=== PATIENT | male | born 1950 | race Caucasian/White ===

== ENCOUNTER → 2018-04-20 08:40 | Outpatient (CLI) | payer OTHER, SELFPAY | PROVIDERS: Family Provider Family Medicine; PCP Family Medicine; Visit Provider Urology | DX: R97.20 Elevated prostate specific antigen [PSA] (principal) | CPT/HCPCS: 36415; 84153 ==

== ENCOUNTER → 2019-05-03 09:35 | Outpatient (CLI) | payer MEDICARE, SELFPAY ==
[2019-05-03 10:58] LABS: PSA,Total - Annual Screen 1.83 ng/mL (0.00-4.00)
== END ==
PROVIDERS: Family Provider Family Medicine; PCP Family Medicine; Referring Provider Urology; Visit Provider Urology
DX: Z12.5 Encounter for screening for malignant neoplasm of prostate (principal)
CPT/HCPCS: 36415; 84153; G0103

== ENCOUNTER → 2020-07-31 16:20 | Outpatient (CLI) | payer MEDICARE, SELFPAY ==
[2020-07-31 17:59] LABS: PSA,Total- Diagnostic 1.67 ng/mL (0.0-4.0)
== END ==
PROVIDERS: PCP Family Medicine; Referring Provider Urology; Visit Provider Urology
DX: R97.20 Elevated prostate specific antigen [PSA] (principal)
CPT/HCPCS: 36415; 84153

== ENCOUNTER → 2021-10-22 12:08 | Outpatient (CLI) | payer MEDICARE, SELFPAY ==
[2021-10-22 14:20] LABS: PSA,Total- Diagnostic 1.74 ng/mL (0.0-4.0)
== END ==
PROVIDERS: PCP Family Medicine; Referring Provider Urology; Visit Provider Urology
DX: R97.20 Elevated prostate specific antigen [PSA] (principal)
CPT/HCPCS: 36415; 84153

== ENCOUNTER → 2022-10-22 | Outpatient (CLI) | payer MEDICARE, SELFPAY ==
[2022-10-22 16:00] LABS: PSA,Total - Annual Screen 1.43 ng/mL (0.00-4.00)
== END | disposition home or self-care (01) ==
LOC: LAB 14:51
PROVIDERS: PCP Family Medicine; Visit Provider Urology
DX: Z12.5 Encounter for screening for malignant neoplasm of prostate (principal)
CPT/HCPCS: 36415; 84153; G0103

== ENCOUNTER → 2023-10-16 | Outpatient (CLI) | payer MEDICARE, SELFPAY ==
[2023-10-16 13:11] LABS: PSA,Total- Diagnostic 1.83 ng/mL (0.0-4.0)
== END | disposition home or self-care (01) ==
LOC: LAB 12:06
PROVIDERS: PCP Family Medicine; Referring Provider Urology; Visit Provider Urology
DX: N40.1 Benign prostatic hyperplasia with lower urinary tract symptoms (principal)
CPT/HCPCS: 36415; 84153

== ENCOUNTER → 2024-10-17 | Outpatient (CLI) | payer MEDICARE, SELFPAY ==
[2024-10-17 13:12] LABS: PSA,Total- Diagnostic 1.56 ng/mL (0.0-4.0)
== END | disposition home or self-care (01) ==
LOC: LAB 12:15
PROVIDERS: PCP Family Medicine; Referring Provider Urology; Visit Provider Urology
DX: N40.1 Benign prostatic hyperplasia with lower urinary tract symptoms (principal)
CPT/HCPCS: 36415; 84153

== ENCOUNTER → 2025-03-03 | Outpatient (CLI) | payer MEDICARE, SELFPAY ==
[2025-03-03 10:29] LABS: Microalbumin,Random Urine 16.4 mg/L (NO RANGE EST.); Microalbumin:Creatinine Ratio 471.3 mg/g CRE
[2025-03-03 10:40] LABS: ALB/GLOB Ratio 1.5 RATIO (0.9-2.4); AST(SGOT) 38 U/L (<=37); Alanine Aminotransfer ALT/SGPT 49 U/L (<=46); Albumin, Serum 4.2 g/dL (3.4-4.8); Alkaline Phosphatase 66 U/L (40-129); Anion Gap 13 (5-15); BUN 14 mg/dL (4-19); BUN/Creat Ratio 14.8 RATIO (10-20); Calcium,Total 9.2 mg/dL (7.6-11.0); Carbon Dioxide 24.3 mmol/L (21.0-32.0); Chloride 99 mmol/L (98-108); Cholesterol 170 mg/dL (<=200); Creatinine, Serum 0.92 mg/dL (0.70-1.20); EST Glomerular Filtration Rate 89 (>60); Globulin 2.9 g/dL (2.2-4.2); Glucose 210 mg/dL (70-99); High Density Lipoprotein 38 mg/dL; Low Density Lipoprotein Calc. 72 mg/dL; Potassium 4.2 mmol/L (3.3-5.1); Protein, Total 7.1 g/dL (5.9-8.4); Sodium Level 136 mmol/L (133-145); Total Bilirubin 0.47 mg/dL (0.00-1.30); Triglycerides 302 mg/dL; Very Low Density Lipoprotein 60 mg/dL (5-40); cholesterol:hdl ratio screen 4.52
== END | disposition home or self-care (01) ==
LOC: LAB 09:39
PROVIDERS: PCP Family Medicine; Referring Provider Family Medicine; Visit Provider Family Medicine
DX: E03.9 Hypothyroidism, unspecified (principal); E11.9 Type 2 diabetes mellitus without complications; I10 Essential (primary) hypertension
CPT/HCPCS: 36415; 80053; 80061; 82043; 82570; 84439; 84443

== ENCOUNTER → 2025-09-14 | Outpatient (CLI) | payer MEDICARE, SELFPAY ==
[2025-09-14 18:05] LABS: Hematocrit 41.7 % (40-54); Hemoglobin 13.9 g/dL (13.0-16.5); Immature Granulocytes Count 0.020 X10^3/uL (0.0-0.0); Mean Corp Hgb Conc 33.3 g/dL (32-36); Mean Corpuscular Volume 88.5 fL (80-94); Mean Platelet Vol. 10.4 fl (6.2-12.0); NRBC Flagged by Analyzer 0 % (0-5); Platelet Count 294 K/mm3 (150-450); RBC Distribution Width CV 13.7 % (11.6-14.6); RBC Distribution Width SD 44.4 fl (35.1-43.9); Red Blood Count 4.71 M/mm3 (4.6-6.2); White Blood Count 8.7 K/mm3 (4.4-11.0)
[2025-09-14 18:39] LABS: AST(SGOT) 25 U/L (<=37); Alanine Aminotransfer ALT/SGPT 35 U/L (<=46); Albumin, Serum 4.3 g/dL (3.4-4.8); Alkaline Phosphatase 60 U/L (40-129); Anion Gap 12 (5-15); BUN 10 mg/dL (4-19); BUN/Creat Ratio 11.8 RATIO (10-20); Calcium,Total 9.8 mg/dL (7.6-11.0); Carbon Dioxide 24.6 mmol/L (21.0-32.0); Chloride 100 mmol/L (98-108); Globulin 2.8 g/dL (2.2-4.2); Glucose 175 mg/dL (70-99); Potassium 4.1 mmol/L (3.3-5.1)
--- OUTSIDE RECORDS SUMMARY | 2025-09-14 18:52 | XMS RPT_ITS | CCD ---
Author Organization [facility] Care Team Providers Care Software Writer Name Role Phone GUY WILKES MD Primary Care Physician Taylor PT, Raina Unavailable Unavailable Unavailable Primary Care Provider UnavailGUY Huerta MD Attending Unavailable GUY WILKES MD Primary Care Unavailable GUY WILKES MD Attending Unavailable GUY WILKES MD Primary Care Unavailable GUY WILKES MD Attending Unavailable GUY WILKES MD Primary Care Unavailable GUY WILKES MD Attending Unavailable GUY WILKES MD Primary Care Unavailable GUY WILKES MD Attending Unavailable GUY WILKES MD Primary Care Unavailable GUY WILKES MD Attending Unavailable GUY WILKES MD Primary Care Unavailable Dr. Naz Horton MD Primary Care Provider [phone] Dr. Naz Horton MD Attending Provider Dr. Naz Horton MD Referring Provider Guy Wilkes Primary Care Unavailable Baldo Parker Referring Unavailable Baldo Parker Attending Unavailable Naz Horton Primary Care Unavailable Baldo Parker Attending Unavailable Naz Horton Attending Unavailable Naz Horton Primary Care Unavailable Naz Horton Referring Unavailable Allergies Allergy Classification Reported Allergen(s) Allergy Type Date of Onset Reaction(s) Facility (10 sources) seasonal enviromental Allergy to substance Unknown (qualifier value) [facility] [place] NEGATED: Highlighted row has been ruled out!Unclassified (1 source) Drug allergy [facility] NEGATED: Highlighted row has been ruled out! (1 source) Drug allergy [facility] NEGATED: Highlighted row has been ruled out! (1 source) Drug allergy [facility] NEGATED: Highlighted row has been ruled out! (1 source) Drug allergy [facility] NEGATED: Highlighted row has been ruled out! (1 source) Drug allergy [facility] NEGATED: Highlighted row has been ruled out! (1 source) Drug allergy [facility] NEGATED: Highlighted row has been ruled out! (1 source) Drug allergy [facility] NEGATED: Highlighted row has been ruled out! (1 source) Drug allergy [facility] NEGATED: Highlighted row has been ruled out! (1 source) Drug allergy [facility] NEGATED: Highlighted row has been ruled out! (1 source) Drug allergy [facility] Medications Current Medications Medication Drug Class(es) Dates Sig (Normalized) Sig (Original) ACCU-CHEK SEAN PLUS TEST STRP (16 sources) Start: 05-24-2019 ACCU-CHEK SEAN PLUS TEST STRP ACCU-CHEK SEAN PLUS TEST STRP, 0 Refill(s) Start Date: 05/24/19 Status: Ordered amLODIPine 5 mg oral tablet (1 source) Dihydropyridine Calcium Channel Jeri Start: 02-13-2025 take 1 tablet by mouth once daily Amlodipine 5 mg tablet Active 5 mg PO daily February 13, 2025 12:00am amLODIPine 5 mg / benazepril hydrochloride 20 mg oral capsule (17 sources) Dihydropyridine Calcium Channel Jeri, Angiotensin Converting Enzyme Inhibitor Start: 02-13-2025 Amlodipine-Benaz epril 5-20 mg capsule Active 1 NMA PO daily February 13, 2025 12:00am Start: 05-27-2024 take 1 capsule by [facility] once daily amlodipine-benazepril 5 mg-20 mg oral capsule Dose = 1 cap(s), Oral, qDay, # 90 cap(s), 3 Refill(s), Pharmacy: [facility]/pharmacy #[id number], 182.5, cm, 05/27/24 9:06:00 EDT, Height, kg, 05/27/24 9:06:00 EDT, Dosing Weight Start Date: 05/27/24 Status: Ordered Start: 02-26-2024 take 1 capsule by [facility] once daily amlodipine-benazepril 5 mg-20 mg oral capsule Dose = 1 cap(s), Oral, qDay, # 90 cap(s), 3 Refill(s), [facility]: [facility] #[id number], 182, cm, 02/26/24 9:49:00 EDT, Height, kg, 02/26/24 9:49:00 EDT, Dosing Weight Start Date: 02/26/24 Status: Ordered Start: 11-17-2023 take 1 capsule by [facility] once daily amlodipine-benazepril 5 mg-20 mg oral capsule Dose = 1 cap(s), Oral, qDay, # 90 cap(s), 0 Refill(s), [facility]: [facility] #[id number], 182, cm, 08/28/23 8:57:00 EDT, Height, kg, 08/28/23 8:57:00 EDT, Dosing Weight Start Date: 11/17/23 Status: Ordered Start: 09-03-2021 End: 08-23-2023 take 1 capsule by mouth once daily amlodipine-benazepril 5 mg-20 mg oral capsule Dose = 1 cap(s), Oral, qDay, X 90 day(s), # 90 cap(s), 3 Refill(s), [facility]: [facility] #[id number], 183.5, cm, 08/28/22 9:38:00 EDT, Height, kg, 08/28/22 9:38:00 EDT, Dosing Weight Start Date: 08/28/22 Stop Date: 08/23/23 Status: Ordered Start: 07-31-2021 End: 08-30-2021 take 1 capsule by mouth once daily amlodipine-benazepril 5 mg-20 mg oral capsule Dose = 1 cap(s), Oral, qDay, X 30 day(s), # 30 cap(s), 0 Refill(s), Pharmacy: [facility] 183, cm, 05/27/21 9:34:00 EDT, Height, kg, 05/27/21 9:34:00 EDT, Dosing Weight Start Date: 07/31/21 Stop Date: 08/30/21 Status: Ordered ascorbic acid 1000 mg extended release oral tablet (1 source) Vitamin C Start: 02-13-2025 Ascorbic Acid (Vitamin C) (C Complex) 1,000 mg tablet extended release Active 500 mg PO Q12H February 13, 2025 12:00am aspirin 81 mg delayed release oral tablet (17 sources) Platelet Aggregation Inhibitor, Nonsteroidal Anti-inflammatory Drug Start: 02-13-2025 take 1 tablet by mouth once daily Aspirin (Adult Aspirin Regimen) 81 mg tablet,delayed release (DR/EC) Active 81 mg PO daily February 13, 2025 12:00am Start: 08-12-2017 take 1 tablet by edgardo th every other day aspirin 81 mg oral delayed release tablet See Instructions, 1 tab(s) Oral QOD, 0 Refill(s) Start Date: 08/12/17 Status: Ordered Start: 08-12-2017 aspirin 81 mg oral delayed release tablet Dose : 81 mg = 1 tab(s), Oral, qDay, # 30 tab(s), 0 Refill(s) Start Date: 08/12/17 Status: Ordered atorvastatin 10 mg oral tablet (16 sources) HMG-CoA Reductase Inhibitor Start: 02-13-2025 take 1 tablet by mouth once daily Atorvastatin 10 mg tablet Active 10 mg PO daily February 13, 2025 12:00am Start: 05-27-2024 atorvastatin 1 0 mg oral tablet Dose : 10 mg = 1 tab(s), Oral, qDay, # 90 tab(s), 3 Refill(s), Pharmacy: [facility]/pharmacy #[id number], 182.5, cm, 05/27/24 9:06:00 EDT, Height, kg, 05/27/24 9:06:00 EDT, Dosing Weight Start Date: 05/27/24 Status: Ordered Start: 08-28-2023 atorvastatin 1 0 mg oral tablet Dose : 10 mg = 1 tab(s), Oral, qDay, # 90 tab(s), 3 Refill(s), Pharmacy: [facility] #[id number], 182, cm, 08/28/23 8:57:00 EDT, Height, kg, 08/28/23 8:57:00 EDT, Dosing Weight Start Date: 08/28/23 Status: Ordered Start: 05-29-2023 atorvastatin 1 0 mg oral tablet Dose : 10 mg = 1 tab(s), Oral, qDay, # 90 tab(s), 3 Refill(s), Pharmacy: [facility] #[id number], 182.9, cm, 05/29/23 9:04:00 EDT, Height, kg, 05/29/23 9:04:00 EDT, Dosing Weight Start Date: 05/29/23 Status: Ordered Start: 05-29-2022 atorvastatin 1 0 mg oral tablet Dose : 10 mg = 1 tab(s), Oral, qDay, # 90 tab(s), 3 Refill(s), Pharmacy: [facility] #[id number], 182.5, cm, 05/29/22 10:02:00 EDT, Height, kg, 05/29/22 10:02:00 EDT, Dosing Weight Start Date: 05/29/22 Status: Ordered Start: 03-12-2022 atorvastatin 1 0 mg oral tablet Dose : 10 mg = 1 tab(s), Oral, qDay, # 90 tab(s), 0 Refill(s), Pharmacy: [facility] 182.5, cm, 02/25/22 10:34:00 EDT, Height Start Date: 03/12/22 Status: Ordered Start: 11-27-2020 End: 11-22-2021 atorvastatin 10 mg oral tabl et Dose : 10 mg = 1 tab(s), Oral, qDay, X 90 day(s), # 90 tab(s), 3 Refill(s), 11/22/21 9:19:00 EST, Pharmacy: [facility] 183.5, cm, 11/26/20 10:04:00 EST, Height, kg, 11/26/20 10:04:00 EST, Dosing Weight Start Date: 11/27/20 Stop Date: 11/22/21 Status: Ordered bisoprolol fumarate 5 mg / hydroCHLOROthiazide 6.25 mg oral tablet (17 sources) Thiazide Diuretic, beta-Adrenergic Jeri Start: 02-13-2025 Bisoprolol-Hydrochlorothiazi de 5-6.25 mg tablet Active 1 {tbl} PO daily February 13, 2025 12:00am Start: 05-27-2024 take 1 tablet by edgardo th once daily bisoprolol-hydrochlorothiazide 5 - 6.25 mg oral tablet Dose = 1 tab(s), Oral, qDay, # 90 tab(s), 3 Refill(s), Pharmacy: [facility]/pharmacy #[id number], HTN (hypertension), 182.5, cm, 05/27/24 9:06:00 EDT, Height, kg, 05/27/24 9:06:00 EDT, Dosing Weight Start Date: 05/27/24 Status: Ordered Start: 08-28-2023 take 1 tablet by edgardo th once daily bisoprolol-hydrochlorothiazide 5 - 6.25 mg oral tablet Dose = 1 tab(s), Oral, qDay, # 90 tab(s), 3 Refill(s), [facility]: [facility] #[id number], HTN (hypertension), 182, cm, 08/28/23 8:57:00 EDT, Height, kg, 08/28/23 8:57:00 EDT, Dosing Weight Start Date: 08/28/23 Status: Ordered Start: 08-28-2022 take 1 tablet by edgardo once daily bisoprolol-hydrochlorothiazide 5 - 6.25 mg oral tablet Dose = 1 tab(s), Oral, qDay, # 90 tab(s), 3 Refill(s), [facility]: [facility] #[id number], HTN (hypertension), 183.5, cm, 08/28/22 9:38:00 EDT, Height, kg, 08/28/22 9:38:00 EDT, Dosing Weight Start Date: 08/28/22 Status: Ordered Start: 05-29-2022 take 1 tablet by edgardo once daily bisoprolol-hydrochlorothiazide 5 - 6.25 mg oral tablet Dose = 1 tab(s), Oral, qDay, # 90 tab(s), 3 Refill(s), Pharmacy: [facility] #[id number], HTN (hypertension), 182.5, cm, 05/29/22 10:02:00 EDT, Height, kg, 05/29/22 10:02:00 EDT, Dosing Weight Start Date: 05/29/22 Status: Ordered Start: 08-13-2021 take 1 tablet by edgardo th once daily bisoprolol-hydrochlorothiazide 5 - 6.25 mg oral tablet Dose = 1 tab(s), Oral, qDay, # 90 tab(s), 3 Refill(s), [facility]acy: [facility] [facility], HTN (hypertension), 183, cm, 05/27/21 9:34:00 EDT, Height, kg, 05/27/21 9:34:00 EDT, Dosing Weight Start Date: 08/13/21 Status: Ordered cholecalciferol 0.025 mg oral capsule (1 source) Vitamin D Start: 02-13-2025 take 1 capsule by mouth once daily Cholecalciferol (Vitamin D3) 25 mcg (1,000 unit) capsule Active 25 ug PO daily February 13, 2025 12:00am Dulaglutide (17 sources) GLP-1 Receptor Agonist Start: 02-13-2025 Dulaglutide (Trulicity) 4.5 mg/0.5 mL pen injector Active 4.5 mg SC EVERY WEEK February 13, 2025 12:00am Start: 05-27-2024 inject 1 dose by sub cutaneous injection every week Trulicity Pen 4.5 mg/0.5 mL subcutaneous solution Dose : 0.5 mL =, Subcutaneous, qWeek, rotate injection sites, # 2 mL, 11 Refill(s), Pharmacy: [facility]/pharmacy #[id number], 182.5, cm, 05/27/24 9:06:00 EDT, Height, kg, 05/27/24 9:06:00 EDT, Dosing Weight Start Date: 05/27/24 Status: Ordered Start: 02-26-2024 inject 1 dose by sub cutaneous injection every week Trulicity Pen 4.5 mg/0.5 mL subcutaneous solution Dose : 0.5 mL =, Subcutaneous, qWeek, rotate injection sites, # 2 mL, 11 Refill(s), [facility]: [facility] #[id number], 182, cm, 02/26/24 9:49:00 EDT, Height, kg, 02/26/24 9:49:00 EDT, Dosing Weight Start Date: 02/26/24 Status: Ordered Start: 08-28-2023 End: 04-24-2024 inject 1 dose by subcutaneous injection every week Trulicity Pen 3 mg/0.5 mL subcutaneous solution Dose : 3 mg =, Subcutaneous, qWeek, # 4 EA, 5 Refill(s), Pharmacy: [facility] #[id number], 182, cm, 08/28/23 8:57:00 EDT, Height, kg, 08/28/23 8:57:00 EDT, Dosing Weight Start Date: 08/28/23 Stop Date: 02/24/24 Status: Ordered Start: 02-27-2023 End: 08-26-2023 inject 1 dose by subcutaneous injection every week Trulicity Pen 3 mg/0.5 mL subcutaneous solution Dose : 3 mg =, Subcutaneous, qWeek, # 4 EA, 5 Refill(s), Pharmacy: [facility] #[id number], 182.9, cm, 02/27/23 9:03:00 EDT, Height Start Date: 02/27/23 Stop Date: 08/26/23 Status: Ordered Start: 05-29-2022 inject 0.5 mg by sub cutaneous injection once daily Trulicity Pen 1.5 mg/0.5 mL subcutaneous solution Dose : 1.5 mg =, Subcutaneous, qWeek, inject 1 AND 1/2 milligram subcutaneously every week dispense 90 day supply, # 12 EA, 3 Refill(s), Pharmacy: [facility] #[id number], 182.5, cm, 05/29/22 10:02:00 EDT, Height, kg, 05/29/22 10:02:00 EDT, Dosing Weight Start Date: 05/29/22 Status: Ordered Start: 04-10-2022 inject 0.5 mg by sub cutaneous injection once daily Trulicity Pen 1.5 mg/0.5 mL subcutaneous solution Dose : 1.5 mg =, Subcutaneous, qWeek, inject 1 AND 1/2 milligram subcutaneously every week dispense 90 day supply, # 12 EA, 0 Refill(s), Pharmacy: [facility] 182.5, cm, 02/25/22 10:34:00 EDT, Height Start Date: 04/10/22 Status: Ordered Start: 07-31-2021 End: 04-01-2022 inject 1 dose by subcutaneous injection every week Trulicity Pen 1.5 mg/0.5 mL subcutaneous solution Dose : 1.5 mg =, Subcutaneous, qWeek, X 90 day(s), # 6 mL, 0 Refill(s), 04/01/22 14:09:00 EDT, Pharmacy: [facility] 183.5, cm, 11/26/21 10:38:00 EST, Height, kg, 11/26/21 10:38:00 EST, Dosing Weight Start Date: 01/01/22 Stop Date: 04/01/22 Status: Ordered Elderberry preparation (3 sources) Start: 11-27-2023 take 50 mg by mouth once daily elderberry 50 mg, Oral, qDay, 0 Refill(s) Start Date: 11/27/23 Status: Ordered 0.85 ml exenatide 2.35 mg/ml auto-injector (1 source) GLP-1 Receptor Agonist Start: 11-27-2023 inject 1 dose by subcutaneous injection every week Byluz BCise 2 mg/0.85 mL subcutaneous suspension, extended release Dose : 2 mg =, Subcutaneous, qWeek, # 3.4 mL, 5 Refill(s), [facility]: [facility] #[id number], Diabetes Diabetes mellitus type 2, 182, cm, 11/27/23 9:31:00 EST, Height, kg, 11/27/23 9:31:00 EST, Dosing Weight Start Date: 11/27/23 Status: Ordered fexofenadine hydrochloride 180 mg oral tablet (17 sources) Histamine-1 Receptor Antagonist Start: 02-13-2025 take 1 tablet by mouth once daily Fexofenadine (Sheryl Hives) 180 mg tablet Active 180 mg PO daily February 13, 2025 12:00am Start: 11-26-2020 Sheryl 24 Azael r Allergy oral tablet Dose : 180 mg = 1 tab(s), Oral, Daily, # 90 tab(s), 0 Refill(s) Start Date: 11/26/20 Status: Ordered finasteride 5 mg oral tablet (17 sources) 5-alpha Reductase Inhibitor Start: 02-13-2025 take 1 tablet by mouth once daily Finasteride 5 mg tablet Active 5 mg PO daily February 13, 2025 12:00am Start: 05-27-2024 finasteride 5 mg oral tablet Dose : 5 mg = 1 tab(s), Oral, qDay, # 90 tab(s), 3 Refill(s), Pharmacy: [facility]/pharmacy #[id number], 182.5, cm, 05/27/24 9:06:00 EDT, Height, kg, 05/27/24 9:06:00 EDT, Dosing Weight Start Date: 05/27/24 Status: Ordered Start: 08-28-2023 finasteride 5 mg oral tablet Dose : 5 mg = 1 tab(s), Oral, qDay, # 90 tab(s), 3 Refill(s), Pharmacy: [facility] #[id number], 182, cm, 08/28/23 8:57:00 EDT, Height, kg, 08/28/23 8:57:00 EDT, Dosing Weight Start Date: 08/28/23 Status: Ordered Start: 08-28-2022 finasteride 5 mg oral tablet Dose : 5 mg = 1 tab(s), Oral, qDay, # 90 tab(s), 3 Refill(s), [facility]: [facility] #[id number], 183.5, cm, 08/28/22 9:38:00 EDT, Height, kg, 08/28/22 9:38:00 EDT, Dosing Weight Start Date: 08/28/22 Status: Ordered Start: 02-25-2022 finasteride 5 mg oral tablet Dose : 5 mg = 1 tab(s), Oral, qDay, # 90 tab(s), 3 Refill(s), [facility]: [facility] 182.5, cm, 02/25/22 10:34:00 EDT, Height, kg, 02/25/22 10:34:00 EDT, Dosing Weight Start Date: 02/25/22 Status: Ordered Start: 11-27-2021 finasteride 5 mg oral tablet Dose : 5 mg = 1 tab(s), Oral, qDay, # 90 tab(s), 0 Refill(s), Pharmacy: [facility] 183.5, cm, 11/26/21 10:38:00 EST, Height, kg, 11/26/21 10:38:00 EST, Dosing Weight Start Date: 11/27/21 Status: Ordered Start: 11-27-2020 End: 11-22-2021 finasteride 5 mg oral tablet Dose : 5 mg = 1 tab(s), Oral, qDay, X 90 day(s), # 90 tab(s), 3 Refill(s), 11/22/21 9:19:00 EST, Pharmacy: [facility] 183.5, cm, 11/26/20 10:04:00 EST, Height, kg, 11/26/20 10:04:00 EST, Dosing Weight Start Date: 11/27/20 Stop Date: 11/22/21 Status: Ordered fluticasone propionate 0.05 mg/actuat metered dose nasal spray (1 source) Corticosteroid Start: 02-13-2025 take 50 ug nasal route once daily Fluticasone Propionate (Flonase Allergy Relief) 50 mcg/actuation spray,suspension Active 1 NMA INTRANASAL daily February 13, 2025 12:00am administer into each nostril levothyroxine sodium 0.175 mg oral tablet (20 sources) l-Thyroxine Start: 02-13-2025 take 1 tablet by mouth once daily Levothyroxine 175 mcg tablet Active 175 ug PO daily February 13, 2025 12:00am Start: 05-27-2024 levothyroxine 175 mcg (0.175 mg) oral tablet Dose : 175 mcg = 1 tab(s), Oral, qDay, # 90 tab(s), 3 Refill(s), Pharmacy: [facility]/pharmacy #[id number], 182.5, cm, 05/27/24 9:06:00 EDT, Height, kg, 05/27/24 9:06:00 EDT, Dosing Weight Start Date: 05/27/24 Status: Ordered Start: 08-28-2023 levothyroxine 175 mcg (0.175 mg) oral tablet Dose : 175 mcg = 1 tab(s), Oral, qDay, # 90 tab(s), 3 Refill(s), [facility][id number], 182, cm, 08/28/23 8:57:00 EDT, Height, kg, 08/28/23 8:57:00 EDT, Dosing Weight Start Date: 08/28/23 Status: Ordered Start: 03-11-2023 levothyroxine 175 mcg (0.175 mg) oral tablet Dose : 175 mcg = 1 tab(s), Oral, qDay, # 90 tab(s), 3 Refill(s), Pharmacy: [facility] #[id number], 182.9, cm, 02/28/23 9:47:00 EDT, Height, kg, 02/28/23 9:47:00 EDT, Dosing Weight Start Date: 03/11/23 Status: Ordered Start: 05-29-2022 End: 05-24-2023 levothyroxine 200 mcg (0.2 m g) oral tablet Dose : 200 mcg = 1 tab(s), Oral, qDay, # 90 tab(s), 3 Refill(s), Pharmacy: [facility] #[id number], Hypothyroidism, 182.5, cm, 05/29/22 10:02:00 EDT, Height, kg, 05/29/22 10:02:00 EDT, Dosing Weight Start Date: 05/29/22 Stop Date: 05/24/23 Status: Ordered Start: 11-26-2021 levothyroxine 50 mcg (0.05 mg) oral tablet Dose : 50 mcg = 1 tab(s), Oral, qDay, # 90 tab(s), 3 Refill(s), [facility] 183.5, cm, 11/26/21 10:38:00 EST, Height, kg, 11/26/21 10:38:00 EST, Dosing Weight Start Date: 11/26/21 Status: Ordered Start: 08-27-2021 levothyroxine 25 mcg (0.025 mg) oral tablet Dose : 25 mcg = 1 tab(s), Oral, qDayAC, # 90 tab(s), 3 Refill(s), [facility] [address] Diabetes mellitus type 2 HTN (hypertension), 184.6, cm, 08/27/21 10:48:00 EDT, Height, kg, 08/27/21 10:48:00 EDT, Dosing Weight Start Date: 08/27/21 Status: Ordered Start: 05-27-2021 End: 05-22-2022 levothyroxine 200 mcg (0.2 m g) oral tablet Dose : 200 mcg = 1 tab(s), Oral, qDay, # 90 tab(s), 3 Refill(s), [facility]: [facility] [facility], [facility], 183, cm, 05/27/21 9:34:00 EDT, Height, kg, 05/27/21 9:34:00 EDT, Dosing Weight Start Date: 05/27/21 Stop Date: 05/22/22 Status: Ordered meclizine hydrochloride 25 mg oral tablet (1 source) Antiemetic Start: 02-13-2025 take 1 tablet by mouth three times daily as needed Meclizine 25 mg tablet Active 25 mg PO THREE TIMES A DAY as needed February 13, 2025 12:00am metFORMIN hydrochloride 500 mg oral tablet (16 sources) Biguanide Start: 02-13-2025 take 4 tablets by mouth once daily Metformin 500 mg tablet Active 2000 mg PO daily February 13, 2025 12:00am Start: 08-28-2023 End: 05-22-2025 MetFORMIN (Eqv-Glucophage XR ) 500 mg oral tablet, EXTENDED RELEASE Dose : 2,000 mg = 4 tab(s), Oral, qDay, 360 EA, take 4 tablets by mouth once daily, # 360 tab(s), 3 Refill(s), Pharmacy: [facility]/pharmacy #[id number], 182.5, cm, 05/27/24 9:06:00 EDT, Height, kg, 05/27/24 9:06:00 EDT, Dosing Weight Start Date: 05/27/24 Stop Date: 05/22/25 Status: Ordered Start: 08-28-2022 End: 08-23-2023 MetFORMIN (Eqv-Glucophage XR ) 500 mg oral tablet, EXTENDED RELEASE Dose : 2,000 mg = 4 tab(s), Oral, qDay, 360 EA, take 4 tablets by mouth once daily, # 360 tab(s), 3 Refill(s), [facility]: [facility] #[id number], 183.5, cm, 08/28/22 9:38:00 EDT, Height Start Date: 08/28/22 Stop Date: 08/23/23 Status: Ordered Start: 08-13-2021 End: 08-08-2022 MetFORMIN (Eqv-Glucophage XR ) 500 mg oral tablet, EXTENDED RELEASE Dose : 2,000 mg = 4 tab(s), Oral, qDay, X 90 day(s), # 360 tab(s), 3 Refill(s), 08/08/22 11:38:00 EDT, Pharmacy: [facility] 183, cm, 05/27/21 9:34:00 EDT, Height, kg, 05/27/21 9:34:00 EDT, Dosing Weight Start Date: 08/13/21 Stop Date: 08/08/22 Status: Ordered montelukast 10 mg oral tablet (6 sources) Leukotriene Receptor Antagonist Start: 05-27-2021 montelukast 10 mg oral tablet Dose : 10 mg = 1 tab(s), Oral, qDay, 0 Refill(s) Start Date: 05/27/21 Status: Ordered Multiple Vitamins oral tablet (16 sources) Start: 08-12-2017 take 1 tablet by mouth once daily Multiple Vitamins oral tablet Dose = 1 tab(s), Oral, Daily, # 30 tab(s), 0 Refill(s) Start Date: 08/12/17 Status: Ordered Multivitamin tablet (1 source) Start: 02-13-2025 Multivitamin tablet Active 1 {tbl} PO daily February 13, 2025 12:00am tamsulosin hydrochloride 0.4 mg oral capsule (17 sources) alpha-Adrenergic Jeri Start: 02-13-2025 take 1 capsule by mouth once daily Tamsulosin 0.4 mg capsule Active 0.4 mg PO daily February 13, 2025 12:00am Start: 05-27-2024 tamsulosin 0.4 mg oral capsule Dose : 0.4 mg = 1 cap(s), Oral, qDay, # 90 cap(s), 3 Refill(s), Pharmacy: [facility]/pharmacy #[id number], 182.5, cm, 05/27/24 9:06:00 EDT, Height, kg, 05/27/24 9:06:00 EDT, Dosing Weight Start Date: 05/27/24 Status: Ordered Start: 08-28-2023 tamsulosin 0.4 mg oral capsule Dose : 0.4 mg = 1 cap(s), Oral, qDay, # 90 cap(s), 3 Refill(s), [facility]: [facility] #[id number], 182, cm, 08/28/23 8:57:00 EDT, Height, kg, 08/28/23 8:57:00 EDT, Dosing Weight Start Date: 08/28/23 Status: Ordered Start: 08-28-2022 tamsulosin 0.4 mg oral capsule Dose : 0.4 mg = 1 cap(s), Oral, qDay, # 90 cap(s), 3 Refill(s), [facility]: [facility] #[id number], 183.5, cm, 08/28/22 9:38:00 EDT, Height, kg, 08/28/22 9:38:00 EDT, Dosing Weight Start Date: 08/28/22 Status: Ordered Start: 11-26-2021 tamsulosin 0.4 mg oral capsule Dose : 0.4 mg = 1 cap(s), Oral, qDay, # 90 cap(s), 3 Refill(s), Pharmacy: [facility] 183.5, cm, 11/26/21 10:38:00 EST, Height, kg, 11/26/21 10:38:00 EST, Dosing Weight Start Date: 11/26/21 Status: Ordered Start: 08-13-2021 tamsulosin 0.4 mg oral capsule Dose : 0.4 mg = 1 cap(s), Oral, qDay, # 90 cap(s), 3 Refill(s), Pharmacy: [facility] 183, cm, 05/27/21 9:34:00 EDT, Height, kg, 05/27/21 9:34:00 EDT, Dosing Weight Start Date: 08/13/21 Status: Ordered Vitamin D3 25 mcg (1000 intl units) oral capsule (3 sources) Start: 11-27-2023 Vitamin D3 25 mcg (1000 intl units) oral capsule Dose : 25 mcg = 1 cap(s), Oral, Daily, 0 Refill(s) Start Date: 11/27/23 Status: Ordered Problems Problem Classification Problem Date Documented Date Episodic/Chronic Cardiac dysrhythmias (1 source) Bradycardia; Translations: [Bradycardia, unspecified] 02-13-2025 Episodic Diabetes mellitus without complication (20 sources) Type 2 diabetes mellitus; Translations: [Type 2 diabetes mellitus without complications] Onset: 11-18-2023 05-24-2019 Chronic Disorders of lipid metabolism (20 sources) Hyperlipidemia; Translations: [Hyperlipidemia, unspecified] Onset: 11-18-2023 05-24-2019 Chronic Esophageal disorders (1 source) Gastroesophageal reflux disease; Translations: [Gastro-esophageal reflux disease without esophagitis] 02-13-2025 Chronic Essential hypertension (20 sources) Hypertensive disorder; Translations: [Essential (primary) hypertension] Onset: 11-18-2023 08-13-2017 Chronic Fluid and electrolyte disorders (1 source) Hyperkalemia; Translations: [Hyperkalemia] Episodic Hyperplasia of prostate (20 sources) Benign prostatic hyperplasia; Translations: [Benign prostatic hyperplasia without lower urinary tract symptoms] Onset: 11-18-2023 08-13-2017 Chronic Joint disorders and dislocations; trauma-related (16 sources) Internal derangement of left knee 05-24-2019 Chronic Mycoses (1 source) Candidiasis of skin 05-27-2024 Episodic Osteoarthritis (1 source) Arthritis; Translations: [Unspecified osteoarthritis, unspecified site] 02-13-2025 Chronic Other bone disease and musculoskeletal deformities (16 sources) Cervical somatic dysfunction 05-24-2019 Episodic Other bone disease and musculoskeletal deformities (16 sources) Somatic dysfunction of rib 05-24-2019 Episodic Other bone disease and musculoskeletal deformities (16 sources) Somatic dysfunction of thoracic region 05-24-2019 Episodic Other endocrine disorders (16 sources) Hypogonadotropic hypogonadism 05-24-2019 Chronic Other endocrine disorders (1 source) Hypogonadism 02-13-2025 Chronic Other male genital disorders (10 sources) Hydrocele 04-03-2023 Episodic Other nervous system disorders (1 source) Neuropathy; Translations: [Polyneuropathy, unspecified] 02-13-2025 Chronic Other non-traumatic joint disorders (16 sources) Pain in right knee 05-24-2019 Episodic Other screening for suspected conditions (not mental disorders or infectious disease) (1 source) Elevated prostate specific antigen [PSA]; Translations: [Elevated prostate specific antigen [PSA]] Onset: 08-23-2025 Episodic Other upper respiratory infections (1 source) Chronic sinusitis; Translations: [Chronic sinusitis, unspecified] 02-13-2025 Chronic Residual codes; unclassified (1 source) Obstructive sleep apnea syndrome; Translations: [Obstructive sleep apnea (adult) (pediatric)] 02-13-2025 Chronic Residual codes; unclassified (2 sources) Increased body mass index; Translations: [Other symptoms and signs concerning food and fluid intake] 05-27-2024 Episodic Thyroid disorders (20 sources) Hypothyroidism; Translations: [Hypothyroidism, unspecified] Onset: 11-18-2023 05-24-2019 Chronic Unclassified (17 sources) Patient encounter status 08-02-2020 Unclassified (1 source) Non-smoker 05-27-2024 Results Test Name Value Interpretation Reference Range Facility Microalb:Creat Ratio,Random URon 04-21-2025 MALB:CREAT 47.1 mg/g CRE Normal [facility] Comment on above: Result Comment: AMENDED REPORT 04/21/25821 MALB:CREAT previously reported as: 471.3 mg/g CRE Performed By: #### L 502.0250, L501.9520, L500.4100, L506.0400, L500.4050 #### [facility] [address] [place], [place] [address]s[place], [address] Anion gap in Serum or Plasma Ordered By: Naz Horton on 03-03-2025 Anion gap [Moles/Vol] 13 mmol/L 03-16 [facility] BUN/creatinine ratioOrdered By: Naz Horton on 03-03-2025 Urea nitrogen/Creatinine [Mass ratio] 14.8 mg/mg 08-21 [facility] Bilirubin, totalOrdered By: Naz Horton on 03-03-2025 Bilirubin [Mass/Vol] 0.47 mg/dL 0.00-1.30 [facility] Calculated very low density lipoprotein (VLDL) cholesterol measurementOrdered By: Naz Horton on 03-03-2025 Calculated very low density lipoprotein (VLDL) cholesterol measurement 60 mg/dL High [facility] Carbon dioxide, total [Moles /volume] in Central venous bloodOrdered By: Naz Horton on 03-03-2025 CO2 [Moles/Vol] 24.3 mmol/L 21.0-32.0 [facility] Chloride assayOrdered By: Scott Horton on 03-03-2025 Chloride [Moles/Vol] 99 mmol/L 98-108 [facility] Comprehensive Metabolic Prof ilon 03-03-2025 Albumin [Mass/Vol] 4.2 g/dL Normal 3.4-4.8 [facility] Comment on above: Performed By: #### L 502.0250, L501.9520, L500.4100, L506.0400, L500.4050 #### [facility] [address] [place], [address] Albumin/Globulin [Mass ratio] 1.5 {ratio} Normal 0.9-2.4 [facility] Comment on above: Performed By: #### L 502.0250, L501.9520, L500.4100, L506.0400, L500.4050 #### [facility] [address] [place], [address] ALK PHOS 66 U/L Normal 40-129 [facility] Comment on above: Performed By: #### L 502.0250, L501.9520, L500.4100, L506.0400, L500.4050 #### [facility] [address] [place], [address] ALT [Catalytic activity/Vol] 49 U/L High <=46 [facility] Comment on above: Performed By: #### L 502.0250, L501.9520, L500.4100, L506.0400, L500.4050 #### [facility] [address] [place], [address] AST [Catalytic activity/Vol] 38 U/L Normal <=37 [facility] Comment on above: Performed By: #### L 502.0250, L501.9520, L500.4100, L506.0400, L500.4050 #### [facility] [address] [place], [address] Bilirubin [Mass/Vol] 0.47 mg/dL Normal 0.00-1.30 [facility] Comment on above: Performed By: #### L 502.0250, L501.9520, L500.4100, L506.0400, L500.4050 #### [facility] [address] [place], [address] BUN/CRE 14.8 RATIO Normal 10-20 [facility] Comment on above: Performed By: #### L 502.0250, L501.9520, L500.4100, L506.0400, L500.4050 #### [facility] [address] [place], [address] Calcium [Mass/Vol] 9.2 mg/dL Normal 7.6-11.0 [facility] Comment on above: Performed By: #### L 502.0250, L501.9520, L500.4100, L506.0400, L500.4050 #### [facility] [address] [place], [address] Chloride [Moles/Vol] 99 mmol/L Normal 98-108 [facility] Comment on above: Performed By: #### L 502.0250, L501.9520, L500.4100, L506.0400, L500.4050 #### [facility] [address] [place], [address] CO2 [Moles/Vol] 24.3 mmol/L Normal 21.0-32.0 [facility] Comment on above: Performed By: #### L 502.0250, L501.9520, L500.4100, L506.0400, L500.4050 #### [facility] [address] [place], [address] Creatinine [Mass/Vol] 0.92 mg/dL Normal 0.70-1.20 [facility] Comment on above: Performed By: #### L 502.0250, L501.9520, L500.4100, L506.0400, L500.4050 #### [facility] [address] [place], [address] GAP 13 Normal 5-15 [facility] Comment on above: Performed By: #### L 502.0250, L501.9520, L500.4100, L506.0400, L500.4050 #### [facility] [address] [place], [address] GFR/1.73 sq M.predicted among non-blacks MDRD (S/P/Bld) [Vol rate/Area] 89 mL/min/{1.73_m2} Normal >60 [facility] Comment on above: Result Comment: mL/m in/1.73m2 CKD-EPI Creatinine Equation (2020) Performed By: #### L 502.0250, L501.9520, L500.4100, L506.0400, L500.4050 #### [facility] [address] [place], [address] Globulin (S) [Mass/Vol] 2.9 g/dL Normal 2.2-4.2 [facility] Comment on above: Performed By: #### L 502.0250, L501.9520, L500.4100, L506.0400, L500.4050 #### [facility] [address] [place], [address] Glucose [Mass/Vol] 210 mg/dL High 70-99 [facility] Comment on above: Performed By: #### L 502.0250, L501.9520, L500.4100, L506.0400, L500.4050 #### [facility] [address] [place], [address] Potassium [Moles/Vol] 4.2 mmol/L Normal 3.3-5.1 [facility] Comment on above: Performed By: #### L 502.0250, L501.9520, L500.4100, L506.0400, L500.4050 #### [facility] [address] [place], [address] Sodium [Moles/Vol] 136 mmol/L Normal 133-145 [facility] Comment on above: Performed By: #### L 502.0250, L501.9520, L500.4100, L506.0400, L500.4050 #### [facility] [address] [place], [address] T PROT 7.1 g/dL Normal 5.9-8.4 [facility] Comment on above: Performed By: #### L 502.0250, L501.9520, L500.4100, L506.0400, L500.4050 #### [facility] [address] [place], [address] Urea nitrogen [Mass/Vol] 14 mg/dL Normal 4-19 [facility] Comment on above: Performed By: #### L 502.0250, L501.9520, L500.4100, L506.0400, L500.4050 #### [facility] [address] [place], [address] Glomerular filtration rate ( GFR) estimation/1.73 sq m using serum, plasma, or whole bOrdered By: Naz Horton on 03-03-2025 GFR/1.73 sq M.predicted among non-blacks MDRD (S/P/Bld) [Vol rate/Area] 89 mL/min/{1.73_m2} >60 [facility] Comment on above: mL/min/1.73m2 CKD-EP I Creatinine Equation (2020) LDL calc ser/plasOrdered By: Naz Horton on 03-03-2025 Cholesterol in LDL [Mass/Vol] 72 mg/dL [facility] Comment on above: Yislagyfbo=194-758 m g/dL & Higher Nyye=127 mg/dL or greater Laboratory - Chemistry and C hemistry - challengeOrdered By: Naz Horton on 03-03-2025 AST [Catalytic activity/Vol] 38 U/L <38 [facility] Lipid Profileon 03-03-2025 CHOL:HDL 4.52 Normal [facility] Comment on above: Performed By: #### L 502.0250, L501.9520, L500.4100, L506.0400, L500.4050 #### [facility] [address] [place], [address] Cholesterol [Mass/Vol] 170 mg/dL Normal <=200 [facility] Comment on above: Result Comment: Chol esterol level, Desirable <200 mg/dL Borderline high cholesterol 200-239 mg/dL High cholesterol >=240 mg/dL Recommendations of the NCEP Adult Treatment Panel for the following risk-cutoff thresholds for the [place] population. Performed By: #### L 502.0250, L501.9520, L500.4100, L506.0400, L500.4050 #### [facility] [address] [place], [address] Cholesterol in HDL [Mass/Vol] 38 mg/dL Low [facility] Comment on above: Result Comment: Chelle onal Cholesterol Education Program (NCEP) guidelines: <40 mg/dL: Low HDL-cholesterol (major risk factor for CHD) >= 60 mg/dL: High HDL-cholesterol (negative risk factor for CHD) HDL-cholesterol is affected by a number of factors, e.g. smoking, exercise, hormones, sex and age. Performed By: #### L 502.0250, L501.9520, L500.4100, L506.0400, L500.4050 #### [facility] [address] [place], [address] Cholesterol in LDL [Mass/Vol] 72 mg/dL Normal [facility] Comment on above: Result Comment: Bord bfopkr=891-968 mg/dL Higher Uoxh=665 mg/dL or greater Performed By: #### L 502.0250, L501.9520, L500.4100, L506.0400, L500.4050 #### [facility] [address] [place], [address] Cholesterol in VLDL [Mass/Vol] 60 mg/dL High 5-40 [facility] Comment on above: Performed By: #### L 502.0250, L501.9520, L500.4100, L506.0400, L500.4050 #### [facility] [address] [place], [address] Triglyceride [Mass/Vol] 302 mg/dL High [facility] Comment on above: Result Comment: The drugs N-Acetylcysteine and Metamizole may falsely depress this assay. Normal range: <150 mg/dL Borderline High: 150-199 mg/dL High: 200-499 mg/dL Very High: >500 mg/dL Performed By: #### L 502.0250, L501.9520, L500.4100, L506.0400, L500.4050 #### [facility] [address] [place], [address] Potassium measurement (mass/ volume)Ordered By: Naz Horton on 03-03-2025 Potassium (Unsp spec) [Mass/Vol] 4.2 mmol/L 3.3-5.1 [facility] Random urine creatinine rebecca urement (mass/volume)Ordered By: Naz Horton on 03-03-2025 Creatinine Unsp time (U) [Mass/Vol] 34.80 mg/dL Low 39.00-259. 00 [facility] Screening total cholesterol/ high density lipoprotein (HDL) cholesterol ratioOrdered By: Naz Horton on 03-03-2025 Cholesterol.total/C holesterol in HDL [Mass ratio] 4.52 {ratio} [facility] Serum creatinine measurement (mass/volume)Ordered By: Naz Horton on 03-03-2025 Creatinine [Mass/Vol] 0.92 mg/dL 0.70-1.20 [facility] Serum globulin measurementOr dered By: Naz Horton on 03-03-2025 Globulin (S) [Mass/Vol] 2.9 g/dL 2.2-4.2 [facility] Serum glucose measurement (m ass/volume)Ordered By: Naz Horton on 03-03-2025 Glucose [Mass/Vol] 210 mg/dL High 70-99 [facility] Serum or plasma alanine leroy otransferase (ALT) measurementOrdered By: Naz Horton on 03-03-2025 ALT [Catalytic activity/Vol] 49 U/L High <47 [facility] Serum or plasma albumin rebecca urement (mass/volume)Ordered By: Naz Horton on 03-03-2025 Albumin [Mass/Vol] 4.2 g/dL 3.4-4.8 [facility] Serum or plasma albumin/glob ulin mass ratioOrdered By: Naz Horton on 03-03-2025 Albumin/Globulin [Mass ratio] 1.5 {ratio} 0.9-2.4 [facility] Serum or plasma alkaline gil sphatase measurementOrdered By: Naz Horton on 03-03-2025 ALP [Catalytic activity/Vol] 66 U/L 40-129 [facility] Serum or plasma calcium rebecca urement (mass/volume)Ordered By: Naz Horton on 03-03-2025 Calcium [Mass/Vol] 9.2 mg/dL 7.6-11.0 [facility] Serum or plasma cholesterol in HDL measurement (mass/volume)Ordered By: Naz Horton on 03-03-2025 Cholesterol in HDL [Mass/Vol] 38 mg/dL Low >40 [facility] Comment on above: National Cholesterol Education Program (NCEP) guidelines:<40 mg/dL: Low HDL-cholesterol (major risk factor for CHD)>= 60 mg/dL: High HDL-cholesterol (negative risk factor for CHD)HDL-cholesterol is affected by a number of factors, e.g. smoking, exercise, hormones, sex and age. Serum or plasma cholesterol measurement (mass/volume)Ordered By: Naz Horton on 03-03-2025 Cholesterol [Mass/Vol] 170 mg/dL <201 [facility] Comment on above: Cholesterol level, D esirable <200 mg/dLBorderline high cholesterol 200-239 mg/dLHigh cholesterol >=240 mg/dLRecommendations of the NCEP Adult Treatment Panel for the following risk-cutoff thresholds for the [place] population. Serum or plasma urea nitroge n measurement (mass/volume)Ordered By: Naz Horton on 03-03-2025 Urea nitrogen [Mass/Vol] 14 mg/dL 4-19 [facility] Sodium levelOrdered By: Raissa Horton on 03-03-2025 Sodium [Moles/Vol] 136 mmol/L 133-145 [facility] T4 Free Directon 03-03-2025 T4 FREE DIRECT 1.30 ng/dL Normal 0.76-1.46 [facility] Comment on above: Performed By: #### L 502.0250, L501.9520, L500.4100, L506.0400, L500.4050 #### [facility] [address] [place], [address] T4 freeOrdered By: Naz jeffers on 03-03-2025 Free T4 [Mass/Vol] 1.30 ng/dL 0.76-1.46 [facility] TSH DL <= 0.005 mIU/L QnOrde red By: Naz Horton on 03-03-2025 TSH Qn 2.800 uIU/mL 0.300-4.20 0 [facility] Thyroid Stim Hormone (TSH)on 03-03-2025 TSH 2.800 uIU/mL Normal 0.300-4.20 0 [facility] Comment on above: Performed By: #### L 502.0250, L501.9520, L500.4100, L506.0400, L500.4050 #### [facility] [address] [place], [address] Total proteinOrdered By: Matias Horton on 03-03-2025 Protein [Mass/Vol] 7.1 g/dL 5.9-8.4 [facility] Triglycerides measurementOrd ered By: Naz Horton on 03-03-2025 Triglyceride [Mass/Vol] 302 mg/dL High <199 [facility] Comment on above: The drugs N-Acetylcy steine and Metamizole may falsely depress this assay. Normal range: <150 mg/dLBorderline High: 150-199 mg/dLHigh: 200-499 mg/dLVery High: >500 mg/dL Urine albumin measurement [facility] detection limit of 20 mg/L or less (mass/volume)Ordered By: Naz Horton on 03-03-2025 Albumin DL <= 20 mg/L (U) [Mass/Vol] 16.4 mg/L NO RANGE EST. [facility] PSA,Total- Diagnosticon 12- PSA, DIAGNOSTIC 1.56 ng/mL Normal 0.0-4.0 [facility] Comment on above: Result Comment: This test was performed using the TPSA assay method for the [employer] chemistry system. Values obtained with different assay methods cannot be used interchangably. When changing PSA assays in the course of monitoring a patient, additional sequential testing should be carried out to confirm baseline values. Performed By: #### L 501.9940 #### [facility] [address] [place], [address] .GFRon 08-17-2024 GFR 94 ml/min/1.73sqm Normal [facility] Comment on above: Result Comment: GFR Population mean for , Non- Americans Ages 20-29 = 116 mL/min/1.73 sq.m. Ages 30-39 = 107 mL/min/1.73 sq.m. Ages 40-49 = 99 mL/min/1.73 sq.m. Ages 50-59 = 93 mL/min/1.73 sq.m. Ages 60-69 = 85 mL/min/1.73 sq.m. Ages 70+ = 75 mL/min/1.73 sq.m. Chronic Kidney Disease: Less than 60 mL/min/1.73 square meters End Stage Renal Disease: Less than 15 mL/min/1.73 square meters Performed By: #### F T4, LIPID, A1C, TSH, FT3, GFR, CMP #### [facility] [address] [place], [place] [address] GFR Non- 77 ml/min/1.73sqm Normal [facility] Comment on above: Result Comment: GFR Population mean for , Non- Americans Ages 20-29 = 116 mL/min/1.73 sq.m. Ages 30-39 = 107 mL/min/1.73 sq.m. Ages 40-49 = 99 mL/min/1.73 sq.m. Ages 50-59 = 93 mL/min/1.73 sq.m. Ages 60-69 = 85 mL/min/1.73 sq.m. Ages 70+ = 75 mL/min/1.73 sq.m. Chronic Kidney Disease: Less than 60 mL/min/1.73 square meters End Stage Renal Disease: Less than 15 mL/min/1.73 square meters Performed By: #### F T4, LIPID, A1C, TSH, FT3, GFR, CMP #### [address] [address] A1Con 08-17-2024 Glucose [Mass/Vol] 160 mg/dL Normal [facility] Comment on above: Result Comment: Marcy mated Average Glucose calculated by equation ((28.7xA1C)-46.7) Estimated average glucose (eAG) is a calculated value from Hemoglobin A1C and is life assurance representative of the average blood glucose level in the last 2-3 month period. Normal range: less than 114 mg/dL Performed By: #### F T4, LIPID, A1C, TSH, FT3, GFR, CMP #### [address] [address] HbA1c (Bld) [Mass fraction] 7.2 % High 4.3-6.4 [facility] Comment on above: Performed By: #### F T4, LIPID, A1C, TSH, FT3, GFR, CMP #### [address] [address] CMPon 08-17-2024 Albumin Level 3.9 G/dL Normal 3.4-4.8 [facility] Comment on above: Performed By: #### F T4, LIPID, A1C, TSH, FT3, GFR, CMP #### [address] [address] Albumin/Globulin [Mass ratio] 1.3 {ratio} Normal 1.1-2.5 [facility] Comment on above: Performed By: #### F T4, LIPID, A1C, TSH, FT3, GFR, CMP #### [address] [address] ALP [Catalytic activity/Vol] 68 U/L Normal 40-135 [facility] Comment on above: Performed By: #### F T4, LIPID, A1C, TSH, FT3, GFR, CMP #### [address] [address] ALT [Catalytic activity/Vol] 40 U/L Normal 16-63 [facility] Comment on above: Performed By: #### F T4, LIPID, A1C, TSH, FT3, GFR, CMP #### [address] [address] AST [Catalytic activity/Vol] 19 U/L Normal 10-40 [facility] Comment on above: Performed By: #### F T4, LIPID, A1C, TSH, FT3, GFR, CMP #### [address] [address] Bili Total 0.6 mg/dL Normal 0.2-1.0 [facility] Comment on above: Result Comment: Use of this assay is not recommended for patients undergoing treatment with eltrombopag due to the potential for falsely elevated results. Performed By: #### F T4, LIPID, A1C, TSH, FT3, GFR, CMP #### [address] [address] BUN/Creatinine Ratio 11 ratio Normal 7-27 [facility] Comment on above: Performed By: #### F T4, LIPID, A1C, TSH, FT3, GFR, CMP #### [address] [address] Calcium [Mass/Vol] 9.3 mg/dL Normal 8.4-10.2 [facility] Comment on above: Performed By: #### F T4, LIPID, A1C, TSH, FT3, GFR, CMP #### [address] [address] Chloride [Moles/Vol] 101 mmol/L Normal 98-107 [facility] Comment on above: Performed By: #### F T4, LIPID, A1C, TSH, FT3, GFR, CMP #### [place] [address] CO2 [Moles/Vol] 30 mmol/L Normal 23-31 [facility] Comment on above: Performed By: #### F T4, LIPID, A1C, TSH, FT3, GFR, CMP #### [place] [address] Creatinine [Mass/Vol] 0.96 mg/dL Normal 0.70-1.30 [facility] Comment on above: Result Comment: Test ing performed on [employer] Dimension EXL analyzer using a modified kinetic Dick technique. Performed By: #### F T4, LIPID, A1C, TSH, FT3, GFR, CMP #### [place] [address] Electrolyte Balance 6.0 mEq/L Normal 4.0-15.0 [facility] Comment on above: Performed By: #### F T4, LIPID, A1C, TSH, FT3, GFR, CMP #### [place] [address] Globulin 2.9 G/dL Normal [facility] Comment on above: Performed By: #### F T4, LIPID, A1C, TSH, FT3, GFR, CMP #### [place] [address] Glucose [Mass/Vol] 153 mg/dL High 83-110 [facility] Comment on above: Performed By: #### F T4, LIPID, A1C, TSH, FT3, GFR, CMP #### [place] [address] Potassium [Moles/Vol] 4.3 mmol/L Normal 3.5-5.1 [facility] Comment on above: Performed By: #### F T4, LIPID, A1C, TSH, FT3, GFR, CMP #### [address] [address] Sodium [Moles/Vol] 137 mmol/L Normal 136-145 [facility] Comment on above: Performed By: #### F T4, LIPID, A1C, TSH, FT3, GFR, CMP #### [address] [address] Total Protein 6.8 G/dL Normal 6.4-8.2 [facility] Comment on above: Performed By: #### F T4, LIPID, A1C, TSH, FT3, GFR, CMP #### [address] [address] Urea nitrogen [Mass/Vol] 11 mg/dL Normal 7-18 [facility] Comment on above: Performed By: #### F T4, LIPID, A1C, TSH, FT3, GFR, CMP #### [address] [address] FT3on 08-17-2024 Free T3 [Mass/Vol] 2.24 pg/mL Low 2.30-4.00 [facility] Comment on above: Performed By: #### F T4, LIPID, A1C, TSH, FT3, GFR, CMP #### [address] [address] FT4on 08-17-2024 Free T4 [Mass/Vol] 1.06 ng/dL Normal 0.76-1.46 [facility] Comment on above: Performed By: #### F T4, LIPID, A1C, TSH, FT3, GFR, CMP #### [address] [address] LABORATORYOrdered By: SYSTEM SYSTEM on 08-17-2024 Albumin BCP dye [Mass/Vol] 3.9 G/dL Normal 3.4 - 4.8 G/dL AO ADM SS Albumin/Globulin [Mass ratio] 1.3 {ratio} Normal 1.1 - 2.5 ratio AO ADM SS ALP [Catalytic activity/Vol] 68 U/L Normal 40 - 135 U/L AO ADM SS ALT With P-5'-P [Catalytic activity/Vol] 40 U/L Normal 16 - 63 U/L AO ADM SS AST With P-5'-P [Catalytic activity/Vol] 19 U/L Normal 10 - 40 U/L AO ADM SS Bilirubin [Mass/Vol] 0.6 mg/dL Normal 0.2 - 1.0 mg/dL AO ADM SS Comment on above: Interpretive Data: U se of this assay is not recommended for patients undergoing treatment with eltrombopag due to the potential for falsely elevated results. Calcium [Mass/Vol] 9.3 mg/dL Normal 8.4 - 10. 2 mg/dL AO ADM SS Chloride [Moles/Vol] 101 mmol/L Normal 98 - 107 mmol/L AO ADM SS CO2 [Moles/Vol] 30 mmol/L Normal 23 - 31 mmol/L AO ADM SS Creatinine [Mass/Vol] 0.96 mg/dL Normal 0.70 - 1.30 mg/dL AO ADM SS Comment on above: Interpretive Data: T esting performed on [employer] Dimension EXL analyzer using a modified kinetic Dick technique. Electrolyte Balance 6.0 mEq/L Normal 4.0 - 15 .0 mEq/L AO ADM SS Free T3 [Mass/Vol] 2.24 pg/mL Low 2.30 - 4.00 pg/mL AO ADM SS Free T4 [Mass/Vol] 1.06 ng/dL Normal 0.76 - 1.46 ng/dL AO ADM SS GFR/1.73 sq M.predicted among blacks MDRD (S/P/Bld) [Vol rate/Area] 94 ml/min/1.73sqm Invalid Interpretation Code AO Chemistry S Comment on above: Interpretive Data: GFR Population mean for , Non- Americans Ages 20-29 = 116 mL/min/1.73 sq.m. Ages 30-39 = 107 mL/min/1.73 sq.m. Ages 40-49 = 99 mL/min/1.73 sq.m. Ages 50-59 = 93 mL/min/1.73 sq.m. Ages 60-69 = 85 mL/min/1.73 sq.m. Ages 70+ = 75 mL/min/1.73 sq.m. Chronic Kidney Disease: Less than 60 mL/min/1.73 square meters End Stage Renal Disease: Less than 15 mL/min/1.73 square meters GFR/1.73 sq M.predicted among non-blacks MDRD (S/P/Bld) [Vol rate/Area] 77 ml/min/1.73sqm Invalid Interpretation Code AO Chemistry S Comment on above: Interpretive Data: GFR Population mean for , Non- Americans Ages 20-29 = 116 mL/min/1.73 sq.m. Ages 30-39 = 107 mL/min/1.73 sq.m. Ages 40-49 = 99 mL/min/1.73 sq.m. Ages 50-59 = 93 mL/min/1.73 sq.m. Ages 60-69 = 85 mL/min/1.73 sq.m. Ages 70+ = 75 mL/min/1.73 sq.m. Chronic Kidney Disease: Less than 60 mL/min/1.73 square meters End Stage Renal Disease: Less than 15 mL/min/1.73 square meters Globulin 2.9 G/dL Invalid Interpretation Code AO ADM SS Glucose [Mass/Vol] 153 mg/dL High 83 - 110 mg/dL AO ADM SS Glucose [Mass/Vol] 160 mg/dL Invalid Interpretation Code AO Chemistry S Comment on above: Interpretive Data: E stimated average glucose (eAG) is a calculated value from Hemoglobin A1C and is life assurance representative of the average blood glucose level in the last 2-3 month period. Normal range: less than 114 mg/dL HbA1c (Bld) [Mass fraction] 7.2 % High 4.3 - 6.4 % AO ADM SS Potassium [Moles/Vol] 4.3 mmol/L Normal 3.5 - 5.1 mmol/L AO ADM SS Protein [Mass/Vol] 6.8 G/dL Normal 6.4 - 8.2 G/dL AO ADM SS Sodium [Moles/Vol] 137 mmol/L Normal 136 - 145 mmol/L AO ADM SS TSH Qn 1.69 m[IU]/L Normal 0.36 - 3.74 mcIU/mL AO ADM SS Urea nitrogen [Mass/Vol] 11 mg/dL Normal 7 - 18 mg/dL AO ADM SS Urea nitrogen/Creatinine [Mass ratio] 11 ratio Normal 7 - 27 ratio AO ADM SS LABORATORYOrdered By: Miranda Acosta on 08-17-2024 Cholesterol [Mass/Vol] 153 mg/dL Normal 0 - 200 mg/dL AO ADM SS Comment on above: Interpretive Data: C holesterol Reference Interval: Less than 200 Desirable 200-239 Borderline high risk 240 and above High risk Cholesterol in HDL [Mass/Vol] 49 mg/dL Normal 40 - 60 mg/dL AO ADM SS Cholesterol in LDL [Mass/Vol] 61 mg/dL Normal 0 - 130 mg/dL AO ADM SS Triglyceride [Mass/Vol] 213 mg/dL High 0 - 150 mg/dL AO ADM SS Comment on above: Interpretive Data: T riglyceride Reference Interval: Less than 150 Normal 150-199 Borderline high risk 200-499 High risk 500 or higher Very high risk LIPIDon 08-17-2024 Cholesterol [Mass/Vol] 153 mg/dL Normal 0-200 [facility] Comment on above: Result Comment: Chol esterol Reference Interval: Less than 200 Desirable 200-239 Borderline high risk 240 and above High risk Performed By: #### F T4, LIPID, A1C, TSH, FT3, GFR, CMP #### [address] [address] Cholesterol in HDL [Mass/Vol] 49 mg/dL Normal 40-60 [facility] Comment on above: Performed By: #### F T4, LIPID, A1C, TSH, FT3, GFR, CMP #### [address] [address] Cholesterol in LDL [Mass/Vol] 61 mg/dL Normal 0-130 [facility] Comment on above: Performed By: #### F T4, LIPID, A1C, TSH, FT3, GFR, CMP #### [address] [address] Triglyceride [Mass/Vol] 213 mg/dL High 0-150 [facility] Comment on above: Result Comment: Trig lyceride Reference Interval: Less than 150 Normal 150-199 Borderline high risk 200-499 High risk 500 or higher Very high risk Performed By: #### F T4, LIPID, A1C, TSH, FT3, GFR, CMP #### [address] [address] TSHon 08-17-2024 TSH Qn 1.69 m[IU]/L Normal 0.36-3.74 [facility] Comment on above: Performed By: #### F T4, LIPID, A1C, TSH, FT3, GFR, CMP #### [address] [address] .GFRon 05-18-2024 GFR Non- 68 ml/min/1.73sqm Normal [facility] ([place]) Comment on above: Result Comment: GFR Population mean for , Non- Americans Ages 20-29 = 116 mL/min/1.73 sq.m. Ages 30-39 = 107 mL/min/1.73 sq.m. Ages 40-49 = 99 mL/min/1.73 sq.m. Ages 50-59 = 93 mL/min/1.73 sq.m. Ages 60-69 = 85 mL/min/1.73 sq.m. Ages 70+ = 75 mL/min/1.73 sq.m. Chronic Kidney Disease: Less than 60 mL/min/1.73 square meters End Stage Renal Disease: Less than 15 mL/min/1.73 square meters Performed By: #### G FR, FT4, CMP, A1C, TSH, LIPID #### [address] [address] GFR 83 ml/min/1.73sqm Normal [facility] ([place]) Comment on above: Result Comment: GFR Population mean for , Non- Americans Ages 20-29 = 116 mL/min/1.73 sq.m. Ages 30-39 = 107 mL/min/1.73 sq.m. Ages 40-49 = 99 mL/min/1.73 sq.m. Ages 50-59 = 93 mL/min/1.73 sq.m. Ages 60-69 = 85 mL/min/1.73 sq.m. Ages 70+ = 75 mL/min/1.73 sq.m. Chronic Kidney Disease: Less than 60 mL/min/1.73 square meters End Stage Renal Disease: Less than 15 mL/min/1.73 square meters Performed By: #### G FR, FT4, CMP, A1C, TSH, LIPID #### [address] [address] A1Con 05-18-2024 HbA1c (Bld) [Mass fraction] 11.5 % High 4.3-6.4 [facility] ([place]) Comment on above: Performed By: #### G FR, FT4, CMP, A1C, TSH, LIPID #### [address] [address] CMPon 05-18-2024 Albumin Level 3.9 G/dL Normal 3.4-4.8 [facility] ([place]) Comment on above: Performed By: #### G FR, FT4, CMP, A1C, TSH, LIPID #### [address] [address] Albumin/Globulin [Mass ratio] 1.3 {ratio} Normal 1.1-2.5 [facility] ([place]) Comment on above: Performed By: #### G FR, FT4, CMP, A1C, TSH, LIPID #### [address] [address] ALP [Catalytic activity/Vol] 81 U/L Normal 40-135 [facility] ([place]) Comment on above: Performed By: #### G FR, FT4, CMP, A1C, TSH, LIPID #### [address] [address] ALT [Catalytic activity/Vol] 39 U/L Normal 16-63 [facility] ([place]) Comment on above: Performed By: #### G FR, FT4, CMP, A1C, TSH, LIPID #### [address] [address] AST [Catalytic activity/Vol] 22 U/L Normal 10-40 [facility] ([place]) Comment on above: Performed By: #### G FR, FT4, CMP, A1C, TSH, LIPID #### [address] [address] Bili Total 0.7 mg/dL Normal 0.2-1.0 [facility] ([place]) Comment on above: Result Comment: Use of this assay is not recommended for patients undergoing treatment with eltrombopag due to the potential for falsely elevated results. Performed By: #### G FR, FT4, CMP, A1C, TSH, LIPID #### [address] [address] BUN/Creatinine Ratio 16 ratio Normal 7-27 [facility] ([place]) Comment on above: Performed By: #### G FR, FT4, CMP, A1C, TSH, LIPID #### [address] [address] Calcium [Mass/Vol] 9.6 mg/dL Normal 8.4-10.2 [facility] ([place]) Comment on above: Performed By: #### G FR, FT4, CMP, A1C, TSH, LIPID #### [address] [address] Chloride [Moles/Vol] 97 mmol/L Low 98-107 [facility] ([place]) Comment on above: Performed By: #### G FR, FT4, CMP, A1C, TSH, LIPID #### [address] [address] CO2 [Moles/Vol] 26 mmol/L Normal 23-31 [facility] ([place]) Comment on above: Performed By: #### G FR, FT4, CMP, A1C, TSH, LIPID #### [address] [address] Creatinine [Mass/Vol] 1.07 mg/dL Normal 0.70-1.30 [facility] ([place]) Comment on above: Performed By: #### G FR, FT4, CMP, A1C, TSH, LIPID #### [address] [address] Electrolyte Balance 11.0 mEq/L Normal 4.0-15.0 [facility] ([place]) Comment on above: Performed By: #### G FR, FT4, CMP, A1C, TSH, LIPID #### [address] [address] Globulin 3.0 G/dL Normal [facility] ([place]) Comment on above: Performed By: #### G FR, FT4, CMP, A1C, TSH, LIPID #### [address] [address] Glucose [Mass/Vol] 214 mg/dL High 83-110 [facility] ([place]) Comment on above: Performed By: #### G FR, FT4, CMP, A1C, TSH, LIPID #### [address] [place], [place] [address] Potassium [Moles/Vol] 4.5 mmol/L Normal 3.5-5.1 [facility] ([place]) Comment on above: Performed By: #### G FR, FT4, CMP, A1C, TSH, LIPID #### [address] [place], [place] [address] Sodium [Moles/Vol] 134 mmol/L Low 136-145 [facility] ([place]) Comment on above: Performed By: #### G FR, FT4, CMP, A1C, TSH, LIPID #### [address] [place], [place] [address] Total Protein 6.9 G/dL Normal 6.4-8.2 [facility] ([place]) Comment on above: Performed By: #### G FR, FT4, CMP, A1C, TSH, LIPID #### [address] [address] Urea nitrogen [Mass/Vol] 17 mg/dL Normal 7-18 [facility] ([place]) Comment on above: Performed By: #### G FR, FT4, CMP, A1C, TSH, LIPID #### [address] [address] LABORATORYOrdered By: SYSTEM SYSTEM on 05-18-2024 Albumin BCP dye [Mass/Vol] 3.9 G/dL Normal 3.4 - 4.8 G/dL AO ADM SS Albumin/Globulin [Mass ratio] 1.3 {ratio} Normal 1.1 - 2.5 ratio AO ADM SS ALP [Catalytic activity/Vol] 81 U/L Normal 40 - 135 U/L AO ADM SS ALT With P-5'-P [Catalytic activity/Vol] 39 U/L Normal 16 - 63 U/L AO ADM SS AST With P-5'-P [Catalytic activity/Vol] 22 U/L Normal 10 - 40 U/L AO ADM SS Bilirubin [Mass/Vol] 0.7 mg/dL Normal 0.2 - 1.0 mg/dL AO ADM SS Comment on above: Interpretive Data: U se of this assay is not recommended for patients undergoing treatment with eltrombopag due to the potential for falsely elevated results. Calcium [Mass/Vol] 9.6 mg/dL Normal 8.4 - 10. 2 mg/dL AO ADM SS Chloride [Moles/Vol] 97 mmol/L Low 98 - 107 mmol/L AO ADM SS CO2 [Moles/Vol] 26 mmol/L Normal 23 - 31 mmol/L AO ADM SS Creatinine [Mass/Vol] 1.07 mg/dL Normal 0.70 - 1.30 mg/dL AO ADM SS Electrolyte Balance 11.0 mEq/L Normal 4.0 - 15 .0 mEq/L AO ADM SS GFR/1.73 sq M.predicted among blacks MDRD (S/P/Bld) [Vol rate/Area] 83 ml/min/1.73sqm Invalid Interpretation Code AO Chemistry S Comment on above: Interpretive Data: GFR Population mean for , Non- Americans Ages 20-29 = 116 mL/min/1.73 sq.m. Ages 30-39 = 107 mL/min/1.73 sq.m. Ages 40-49 = 99 mL/min/1.73 sq.m. Ages 50-59 = 93 mL/min/1.73 sq.m. Ages 60-69 = 85 mL/min/1.73 sq.m. Ages 70+ = 75 mL/min/1.73 sq.m. Chronic Kidney Disease: Less than 60 mL/min/1.73 square meters End Stage Renal Disease: Less than 15 mL/min/1.73 square meters GFR/1.73 sq M.predicted among non-blacks MDRD (S/P/Bld) [Vol rate/Area] 68 ml/min/1.73sqm Invalid Interpretation Code AO Chemistry S Comment on above: Interpretive Data: GFR Population mean for , Non- Americans Ages 20-29 = 116 mL/min/1.73 sq.m. Ages 30-39 = 107 mL/min/1.73 sq.m. Ages 40-49 = 99 mL/min/1.73 sq.m. Ages 50-59 = 93 mL/min/1.73 sq.m. Ages 60-69 = 85 mL/min/1.73 sq.m. Ages 70+ = 75 mL/min/1.73 sq.m. Chronic Kidney Disease: Less than 60 mL/min/1.73 square meters End Stage Renal Disease: Less than 15 mL/min/1.73 square meters Globulin 3.0 G/dL Invalid Interpretation Code AO ADM SS Glucose [Mass/Vol] 214 mg/dL High 83 - 110 mg/dL AO ADM SS HbA1c (Bld) [Mass fraction] 11.5 % High 4.3 - 6.4 % AO ADM SS Potassium [Moles/Vol] 4.5 mmol/L Normal 3.5 - 5.1 mmol/L AO ADM SS Protein [Mass/Vol] 6.9 G/dL Normal 6.4 - 8.2 G/dL AO ADM SS Sodium [Moles/Vol] 134 mmol/L Low 136 - 145 mmol/L AO ADM SS TSH Qn 4.39 m[IU]/L High 0.36 - 3.74 mcIU/mL AO ADM SS Urea nitrogen [Mass/Vol] 17 mg/dL Normal 7 - 18 mg/dL AO ADM SS Urea nitrogen/Creatinine [Mass ratio] 16 ratio Normal 7 - 27 ratio AO ADM SS LABORATORYOrdered By: Miranda Acosta on 05-18-2024 Cholesterol [Mass/Vol] 164 mg/dL Normal 0 - 200 mg/dL AO ADM SS Comment on above: Interpretive Data: C holesterol Reference Interval: Less than 200 Desirable 200-239 Borderline high risk 240 and above High risk Cholesterol in HDL [Mass/Vol] 46 mg/dL Normal 40 - 60 mg/dL AO ADM SS Cholesterol in LDL [Mass/Vol] 69 mg/dL Normal 0 - 130 mg/dL AO ADM SS Triglyceride [Mass/Vol] 246 mg/dL High 0 - 150 mg/dL AO ADM SS Comment on above: Interpretive Data: T riglyceride Reference Interval: Less than 150 Normal 150-199 Borderline high risk 200-499 High risk 500 or higher Very high risk LIPIDon 05-18-2024 Cholesterol [Mass/Vol] 164 mg/dL Normal 0-200 [facility] ([place]) Comment on above: Result Comment: Chol esterol Reference Interval: Less than 200 Desirable 200-239 Borderline high risk 240 and above High risk Performed By: #### G FR, FT4, CMP, A1C, TSH, LIPID #### [address] [address] Cholesterol in HDL [Mass/Vol] 46 mg/dL Normal 40-60 [facility] ([place]) Comment on above: Performed By: #### G FR, FT4, CMP, A1C, TSH, LIPID #### [address] [address] Cholesterol in LDL [Mass/Vol] 69 mg/dL Normal 0-130 [facility] ([place]) Comment on above: Performed By: #### G FR, FT4, CMP, A1C, TSH, LIPID #### [address] [address] Triglyceride [Mass/Vol] 246 mg/dL High 0-150 [facility] ([place]) Comment on above: Result Comment: Trig lyceride Reference Interval: Less than 150 Normal 150-199 Borderline high risk 200-499 High risk 500 or higher Very high risk Performed By: #### G FR, FT4, CMP, A1C, TSH, LIPID #### [address] [address] TSHon 05-18-2024 TSH Qn 4.39 m[IU]/L High 0.36-3.74 [facility] ([place]) Comment on above: Performed By: #### G FR, FT4, CMP, A1C, TSH, LIPID #### [address] [address] MALBRon 02-26-2024 U Creatinine 93.5 mg/dL Normal 39.0-259.0 [facility] ([place]) Comment on above: Performed By: #### G FR, FT4, CMP, A1C, TSH, LIPID #### [address] [address] U Microalb 2259 mcg/dL Normal [facility] ([place]) Comment on above: Performed By: #### G FR, FT4, CMP, A1C, TSH, LIPID #### [address] [address] U Ratio Alb/Cre 24 mcg/mg Normal 0-30 [facility] ([place]) Comment on above: Performed By: #### G FR, FT4, CMP, A1C, TSH, LIPID #### [address] [address] .GFRon 02-17-2024 GFR Non- 73 ml/min/1.73sqm Normal [facility] ([place]) Comment on above: Result Comment: GFR Population mean for , Non- Americans Ages 20-29 = 116 mL/min/1.73 sq.m. Ages 30-39 = 107 mL/min/1.73 sq.m. Ages 40-49 = 99 mL/min/1.73 sq.m. Ages 50-59 = 93 mL/min/1.73 sq.m. Ages 60-69 = 85 mL/min/1.73 sq.m. Ages 70+ = 75 mL/min/1.73 sq.m. Chronic Kidney Disease: Less than 60 mL/min/1.73 square meters End Stage Renal Disease: Less than 15 mL/min/1.73 square meters Performed By: #### G FR, FT4, CMP, A1C, TSH, LIPID #### [facility] [address] [address] GFR 88 ml/min/1.73sqm Normal [facility] ([place]) Comment on above: Result Comment: GFR Population mean for , Non- Americans Ages 20-29 = 116 mL/min/1.73 sq.m. Ages 30-39 = 107 mL/min/1.73 sq.m. Ages 40-49 = 99 mL/min/1.73 sq.m. Ages 50-59 = 93 mL/min/1.73 sq.m. Ages 60-69 = 85 mL/min/1.73 sq.m. Ages 70+ = 75 mL/min/1.73 sq.m. Chronic Kidney Disease: Less than 60 mL/min/1.73 square meters End Stage Renal Disease: Less than 15 mL/min/1.73 square meters Performed By: #### G FR, FT4, CMP, A1C, TSH, LIPID #### [address] [address] A1Con 02-17-2024 HbA1c (Bld) [Mass fraction] 9.6 % High 4.3-6.4 [facility] ([place]) Comment on above: Performed By: #### G FR, FT4, CMP, A1C, TSH, LIPID #### [address] [address] CMPon 02-17-2024 Albumin Level 4.0 G/dL Normal 3.4-4.8 [facility] ([place]) Comment on above: Performed By: #### G FR, FT4, CMP, A1C, TSH, LIPID #### [address] [address] Albumin/Globulin [Mass ratio] 1.4 {ratio} Normal 1.1-2.5 [facility] ([place]) Comment on above: Performed By: #### G FR, FT4, CMP, A1C, TSH, LIPID #### [address] [address] ALP [Catalytic activity/Vol] 70 U/L Normal 40-135 [facility] ([place]) Comment on above: Performed By: #### G FR, FT4, CMP, A1C, TSH, LIPID #### [address] [address] ALT [Catalytic activity/Vol] 51 U/L Normal 16-63 [facility] ([place]) Comment on above: Performed By: #### G FR, FT4, CMP, A1C, TSH, LIPID #### [address] [address] AST [Catalytic activity/Vol] 22 U/L Normal 10-40 [facility] ([place]) Comment on above: Performed By: #### G FR, FT4, CMP, A1C, TSH, LIPID #### [address] [address] Bili Total 0.6 mg/dL Normal 0.2-1.0 [facility] ([place]) Comment on above: Result Comment: Use of this assay is not recommended for patients undergoing treatment with eltrombopag due to the potential for falsely elevated results. Performed By: #### G FR, FT4, CMP, A1C, TSH, LIPID #### [address] [address] BUN/Creatinine Ratio 17 ratio Normal 7-27 [facility] ([place]) Comment on above: Performed By: #### G FR, FT4, CMP, A1C, TSH, LIPID #### [address] [address] Calcium [Mass/Vol] 9.0 mg/dL Normal 8.4-10.2 [facility] ([place]) Comment on above: Performed By: #### G FR, FT4, CMP, A1C, TSH, LIPID #### [address] [address] Chloride [Moles/Vol] 100 mmol/L Normal 98-107 [facility] ([place]) Comment on above: Performed By: #### G FR, FT4, CMP, A1C, TSH, LIPID #### [address] [address] CO2 [Moles/Vol] 28 mmol/L Normal 23-31 [facility] ([place]) Comment on above: Performed By: #### G FR, FT4, CMP, A1C, TSH, LIPID #### [address] [address] Creatinine [Mass/Vol] 1.01 mg/dL Normal 0.70-1.30 [facility] ([place]) Comment on above: Performed By: #### G FR, FT4, CMP, A1C, TSH, LIPID #### [address] [address] Electrolyte Balance 10.0 mEq/L Normal 4.0-15.0 [facility] ([place]) Comment on above: Performed By: #### G FR, FT4, CMP, A1C, TSH, LIPID #### [address] [address] Globulin 2.9 G/dL Normal [facility] ([place]) Comment on above: Performed By: #### G FR, FT4, CMP, A1C, TSH, LIPID #### [address] [address] Glucose [Mass/Vol] 174 mg/dL High 83-110 [facility] ([place]) Comment on above: Performed By: #### G FR, FT4, CMP, A1C, TSH, LIPID #### [address] [place], [place] [address] Potassium [Moles/Vol] 4.4 mmol/L Normal 3.5-5.1 [facility] ([place]) Comment on above: Performed By: #### G FR, FT4, CMP, A1C, TSH, LIPID #### [address] [place], [place] [address] Sodium [Moles/Vol] 138 mmol/L Normal 136-145 [facility] ([place]) Comment on above: Performed By: #### G FR, FT4, CMP, A1C, TSH, LIPID #### [address] [address] Total Protein 6.9 G/dL Normal 6.4-8.2 [facility] ([place]) Comment on above: Performed By: #### G FR, FT4, CMP, A1C, TSH, LIPID #### [address] [address] Urea nitrogen [Mass/Vol] 17 mg/dL Normal 7-18 [facility] ([place]) Comment on above: Performed By: #### G FR, FT4, CMP, A1C, TSH, LIPID #### [address] [address] LABORATORYOrdered By: SYSTEM SYSTEM on 02-17-2024 Albumin BCP dye [Mass/Vol] 4.0 G/dL Normal 3.4 - 4.8 G/dL AO ADM SS Albumin/Globulin [Mass ratio] 1.4 {ratio} Normal 1.1 - 2.5 ratio AO ADM SS ALP [Catalytic activity/Vol] 70 U/L Normal 40 - 135 U/L AO ADM SS ALT With P-5'-P [Catalytic activity/Vol] 51 U/L Normal 16 - 63 U/L AO ADM SS AST With P-5'-P [Catalytic activity/Vol] 22 U/L Normal 10 - 40 U/L AO ADM SS Bilirubin [Mass/Vol] 0.6 mg/dL Normal 0.2 - 1.0 mg/dL AO ADM SS Comment on above: Interpretive Data: U se of this assay is not recommended for patients undergoing treatment with eltrombopag due to the potential for falsely elevated results. Calcium [Mass/Vol] 9.0 mg/dL Normal 8.4 - 10. 2 mg/dL AO ADM SS Chloride [Moles/Vol] 100 mmol/L Normal 98 - 107 mmol/L AO ADM SS CO2 [Moles/Vol] 28 mmol/L Normal 23 - 31 mmol/L AO ADM SS Creatinine [Mass/Vol] 1.01 mg/dL Normal 0.70 - 1.30 mg/dL AO ADM SS Electrolyte Balance 10.0 mEq/L Normal 4.0 - 15 .0 mEq/L AO ADM SS GFR/1.73 sq M.predicted among blacks MDRD (S/P/Bld) [Vol rate/Area] 88 ml/min/1.73sqm Invalid Interpretation Code AO Chemistry S Comment on above: Interpretive Data: GFR Population mean for , Non- Americans Ages 20-29 = 116 mL/min/1.73 sq.m. Ages 30-39 = 107 mL/min/1.73 sq.m. Ages 40-49 = 99 mL/min/1.73 sq.m. Ages 50-59 = 93 mL/min/1.73 sq.m. Ages 60-69 = 85 mL/min/1.73 sq.m. Ages 70+ = 75 mL/min/1.73 sq.m. Chronic Kidney Disease: Less than 60 mL/min/1.73 square meters End Stage Renal Disease: Less than 15 mL/min/1.73 square meters GFR/1.73 sq M.predicted among non-blacks MDRD (S/P/Bld) [Vol rate/Area] 73 ml/min/1.73sqm Invalid Interpretation Code AO Chemistry S Comment on above: Interpretive Data: GFR Population mean for , Non- Americans Ages 20-29 = 116 mL/min/1.73 sq.m. Ages 30-39 = 107 mL/min/1.73 sq.m. Ages 40-49 = 99 mL/min/1.73 sq.m. Ages 50-59 = 93 mL/min/1.73 sq.m. Ages 60-69 = 85 mL/min/1.73 sq.m. Ages 70+ = 75 mL/min/1.73 sq.m. Chronic Kidney Disease: Less than 60 mL/min/1.73 square meters End Stage Renal Disease: Less than 15 mL/min/1.73 square meters Globulin 2.9 G/dL Invalid Interpretation Code AO ADM SS Glucose [Mass/Vol] 174 mg/dL High 83 - 110 mg/dL AO ADM SS HbA1c (Bld) [Mass fraction] 9.6 % High 4.3 - 6.4 % AO ADM SS Potassium [Moles/Vol] 4.4 mmol/L Normal 3.5 - 5.1 mmol/L AO ADM SS Protein [Mass/Vol] 6.9 G/dL Normal 6.4 - 8.2 G/dL AO ADM SS Sodium [Moles/Vol] 138 mmol/L Normal 136 - 145 mmol/L AO ADM SS TSH Qn 0.61 m[IU]/L Normal 0.36 - 3.74 mcIU/mL AO ADM SS Urea nitrogen [Mass/Vol] 17 mg/dL Normal 7 - 18 mg/dL AO ADM SS Urea nitrogen/Creatinine [Mass ratio] 17 ratio Normal 7 - 27 ratio AO ADM SS LABORATORYOrdered By: Nadeem Gonsalez on 02-17-2024 Cholesterol [Mass/Vol] 151 mg/dL Normal 0 - 200 mg/dL AO ADM SS Comment on above: Interpretive Data: C holesterol Reference Interval: Less than 200 Desirable 200-239 Borderline high risk 240 and above High risk Cholesterol in HDL [Mass/Vol] 41 mg/dL Normal 40 - 60 mg/dL AO ADM SS Cholesterol in LDL [Mass/Vol] 66 mg/dL Normal 0 - 130 mg/dL AO ADM SS Triglyceride [Mass/Vol] 220 mg/dL High 0 - 150 mg/dL AO ADM SS Comment on above: Interpretive Data: T riglyceride Reference Interval: Less than 150 Normal 150-199 Borderline high risk 200-499 High risk 500 or higher Very high risk LIPIDon 02-17-2024 Cholesterol [Mass/Vol] 151 mg/dL Normal 0-200 [facility] ([place]) Comment on above: Result Comment: Chol esterol Reference Interval: Less than 200 Desirable 200-239 Borderline high risk 240 and above High risk Performed By: #### G FR, FT4, CMP, A1C, TSH, LIPID #### [address] [address] Cholesterol in HDL [Mass/Vol] 41 mg/dL Normal 40-60 [facility] ([place]) Comment on above: Performed By: #### G FR, FT4, CMP, A1C, TSH, LIPID #### [address] [address] Cholesterol in LDL [Mass/Vol] 66 mg/dL Normal 0-130 [facility] ([place]) Comment on above: Performed By: #### G FR, FT4, CMP, A1C, TSH, LIPID #### [id number] [place], [place] [address] Triglyceride [Mass/Vol] 220 mg/dL High 0-150 [facility] ([place]) Comment on above: Result Comment: Trig lyceride Reference Interval: Less than 150 Normal 150-199 Borderline high risk 200-499 High risk 500 or higher Very high risk Performed By: #### G FR, FT4, CMP, A1C, TSH, LIPID #### [address] [address] TSHon 02-17-2024 TSH Qn 0.61 m[IU]/L Normal 0.36-3.74 [facility] ([place]) Comment on above: Performed By: #### G FR, FT4, CMP, A1C, TSH, LIPID #### [address] [address] .GFRon 11-18-2023 GFR 78 ml/min/1.73sqm Normal [facility] ([place]) Comment on above: Result Comment: GFR Population mean for , Non- Americans Ages 20-29 = 116 mL/min/1.73 sq.m. Ages 30-39 = 107 mL/min/1.73 sq.m. Ages 40-49 = 99 mL/min/1.73 sq.m. Ages 50-59 = 93 mL/min/1.73 sq.m. Ages 60-69 = 85 mL/min/1.73 sq.m. Ages 70+ = 75 mL/min/1.73 sq.m. Chronic Kidney Disease: Less than 60 mL/min/1.73 square meters End Stage Renal Disease: Less than 15 mL/min/1.73 square meters Performed By: #### G FR, FT4, CMP, A1C, TSH, LIPID #### [address] [address] GFR Non- 64 ml/min/1.73sqm Normal [facility] ([place]) Comment on above: Result Comment: GFR Population mean for , Non- Americans Ages 20-29 = 116 mL/min/1.73 sq.m. Ages 30-39 = 107 mL/min/1.73 sq.m. Ages 40-49 = 99 mL/min/1.73 sq.m. Ages 50-59 = 93 mL/min/1.73 sq.m. Ages 60-69 = 85 mL/min/1.73 sq.m. Ages 70+ = 75 mL/min/1.73 sq.m. Chronic Kidney Disease: Less than 60 mL/min/1.73 square meters End Stage Renal Disease: Less than 15 mL/min/1.73 square meters Performed By: #### G FR, FT4, CMP, A1C, TSH, LIPID #### [address] [address] A1Con 11-18-2023 HbA1c (Bld) [Mass fraction] 8.4 % High 4.3-6.4 [facility] ([place]) Comment on above: Performed By: #### G FR, FT4, CMP, A1C, TSH, LIPID #### [address] [address] CMPon 11-18-2023 Albumin Level 3.8 G/dL Normal 3.4-4.8 [facility] ([place]) Comment on above: Performed By: #### G FR, FT4, CMP, A1C, TSH, LIPID #### [address] [id number] Albumin/Globulin [Mass ratio] 1.2 {ratio} Normal 1.1-2.5 [facility] ([place]) Comment on above: Performed By: #### G FR, FT4, CMP, A1C, TSH, LIPID #### [address] [id number] ALP [Catalytic activity/Vol] 67 U/L Normal 40-135 [facility] ([place]) Comment on above: Performed By: #### G FR, FT4, CMP, A1C, TSH, LIPID #### [address] [id number] ALT [Catalytic activity/Vol] 44 U/L Normal 16-63 [facility] ([place]) Comment on above: Performed By: #### G FR, FT4, CMP, A1C, TSH, LIPID #### [address] [id number] AST [Catalytic activity/Vol] 19 U/L Normal 10-40 [facility] ([place]) Comment on above: Performed By: #### G FR, FT4, CMP, A1C, TSH, LIPID #### [address] [id number] Bili Total 0.8 mg/dL Normal 0.2-1.0 [facility] ([place]) Comment on above: Result Comment: Use of this assay is not recommended for patients undergoing treatment with eltrombopag due to the potential for falsely elevated results. Performed By: #### G FR, FT4, CMP, A1C, TSH, LIPID #### [address] [address] BUN/Creatinine Ratio 12 ratio Normal 7-27 [facility] ([place]) Comment on above: Performed By: #### G FR, FT4, CMP, A1C, TSH, LIPID #### [address] [address] Calcium [Mass/Vol] 9.2 mg/dL Normal 8.4-10.2 [facility] ([place]) Comment on above: Performed By: #### G FR, FT4, CMP, A1C, TSH, LIPID #### [address] [address] Chloride [Moles/Vol] 100 mmol/L Normal 98-107 [facility] ([place]) Comment on above: Performed By: #### G FR, FT4, CMP, A1C, TSH, LIPID #### [address] [address] CO2 [Moles/Vol] 29 mmol/L Normal 23-31 [facility] ([place]) Comment on above: Performed By: #### G FR, FT4, CMP, A1C, TSH, LIPID #### [address] [address] Creatinine [Mass/Vol] 1.13 mg/dL Normal 0.70-1.30 [facility] ([place]) Comment on above: Performed By: #### G FR, FT4, CMP, A1C, TSH, LIPID #### [address] [address] Electrolyte Balance 9.0 mEq/L Normal 4.0-15.0 [facility] ([place]) Comment on above: Performed By: #### G FR, FT4, CMP, A1C, TSH, LIPID #### [address] [address] Globulin 3.3 G/dL Normal [facility] ([place]) Comment on above: Performed By: #### G FR, FT4, CMP, A1C, TSH, LIPID #### [address] [address] Glucose [Mass/Vol] 274 mg/dL High 83-110 [facility] ([place]) Comment on above: Performed By: #### G FR, FT4, CMP, A1C, TSH, LIPID #### [address] [address] Potassium [Moles/Vol] 4.4 mmol/L Normal 3.5-5.1 [facility] ([place]) Comment on above: Performed By: #### G FR, FT4, CMP, A1C, TSH, LIPID #### [address] [address] Sodium [Moles/Vol] 138 mmol/L Normal 136-145 [facility] ([place]) Comment on above: Performed By: #### G FR, FT4, CMP, A1C, TSH, LIPID #### [address] [place] [address] [place], [place] [address] Total Protein 7.1 G/dL Normal 6.4-8.2 [facility] ([place]) Comment on above: Performed By: #### G FR, FT4, CMP, A1C, TSH, LIPID #### [address] [place], [place] [address] Urea nitrogen [Mass/Vol] 13 mg/dL Normal 7-18 [facility] ([place]) Comment on above: Performed By: #### G FR, FT4, CMP, A1C, TSH, LIPID #### [address] [address] FT4on 11-18-2023 Free T4 [Mass/Vol] 1.44 ng/dL Normal 0.76-1.46 [facility] ([place]) Comment on above: Performed By: #### G FR, FT4, CMP, A1C, TSH, LIPID #### [address] [address] LABORATORYOrdered By: SYSTEM SYSTEM on 11-18-2023 Albumin BCP dye [Mass/Vol] 3.8 G/dL Normal 3.4 - 4.8 G/dL AO ADM SS Albumin/Globulin [Mass ratio] 1.2 {ratio} Normal 1.1 - 2.5 ratio AO ADM SS ALP [Catalytic activity/Vol] 67 U/L Normal 40 - 135 U/L AO ADM SS ALT With P-5'-P [Catalytic activity/Vol] 44 U/L Normal 16 - 63 U/L AO ADM SS AST With P-5'-P [Catalytic activity/Vol] 19 U/L Normal 10 - 40 U/L AO ADM SS Bilirubin [Mass/Vol] 0.8 mg/dL Normal 0.2 - 1.0 mg/dL AO ADM SS Comment on above: Interpretive Data: U se of this assay is not recommended for patients undergoing treatment with eltrombopag due to the potential for falsely elevated results. Calcium [Mass/Vol] 9.2 mg/dL Normal 8.4 - 10. 2 mg/dL AO ADM SS Chloride [Moles/Vol] 100 mmol/L Normal 98 - 107 mmol/L AO ADM SS CO2 [Moles/Vol] 29 mmol/L Normal 23 - 31 mmol/L AO ADM SS Creatinine [Mass/Vol] 1.13 mg/dL Normal 0.70 - 1.30 mg/dL AO ADM SS Electrolyte Balance 9.0 mEq/L Normal 4.0 - 15 .0 mEq/L AO ADM SS Free T4 [Mass/Vol] 1.44 ng/dL Normal 0.76 - 1.46 ng/dL AO ADM SS GFR/1.73 sq M.predicted among blacks MDRD (S/P/Bld) [Vol rate/Area] 78 ml/min/1.73sqm Invalid Interpretation Code AO Chemistry S Comment on above: Interpretive Data: GFR Population mean for , Non- Americans Ages 20-29 = 116 mL/min/1.73 sq.m. Ages 30-39 = 107 mL/min/1.73 sq.m. Ages 40-49 = 99 mL/min/1.73 sq.m. Ages 50-59 = 93 mL/min/1.73 sq.m. Ages 60-69 = 85 mL/min/1.73 sq.m. Ages 70+ = 75 mL/min/1.73 sq.m. Chronic Kidney Disease: Less than 60 mL/min/1.73 square meters End Stage Renal Disease: Less than 15 mL/min/1.73 square meters GFR/1.73 sq M.predicted among non-blacks MDRD (S/P/Bld) [Vol rate/Area] 64 ml/min/1.73sqm Invalid Interpretation Code AO Chemistry S Comment on above: Interpretive Data: GFR Population mean for , Non- Americans Ages 20-29 = 116 mL/min/1.73 sq.m. Ages 30-39 = 107 mL/min/1.73 sq.m. Ages 40-49 = 99 mL/min/1.73 sq.m. Ages 50-59 = 93 mL/min/1.73 sq.m. Ages 60-69 = 85 mL/min/1.73 sq.m. Ages 70+ = 75 mL/min/1.73 sq.m. Chronic Kidney Disease: Less than 60 mL/min/1.73 square meters End Stage Renal Disease: Less than 15 mL/min/1.73 square meters Globulin 3.3 G/dL Invalid Interpretation Code AO ADM SS Glucose [Mass/Vol] 274 mg/dL High 83 - 110 mg/dL AO ADM SS HbA1c (Bld) [Mass fraction] 8.4 % High 4.3 - 6.4 % AO ADM SS Potassium [Moles/Vol] 4.4 mmol/L Normal 3.5 - 5.1 mmol/L AO ADM SS Protein [Mass/Vol] 7.1 G/dL Normal 6.4 - 8.2 G/dL AO ADM SS Sodium [Moles/Vol] 138 mmol/L Normal 136 - 145 mmol/L AO ADM SS TSH Qn 0.91 m[IU]/L Normal 0.36 - 3.74 mcIU/mL AO ADM SS Urea nitrogen [Mass/Vol] 13 mg/dL Normal 7 - 18 mg/dL AO ADM SS Urea nitrogen/Creatinine [Mass ratio] 12 ratio Normal 7 - 27 ratio AO ADM SS LABORATORYOrdered By: Migue Whitfield on 11-18-2023 Cholesterol [Mass/Vol] 170 mg/dL Normal 0 - 200 mg/dL AO ADM SS Comment on above: Interpretive Data: C holesterol Reference Interval: Less than 200 Desirable 200-239 Borderline high risk 240 and above High risk Cholesterol in HDL [Mass/Vol] 50 mg/dL Normal 40 - 60 mg/dL AO ADM SS Cholesterol in LDL [Mass/Vol] 82 mg/dL Normal 0 - 130 mg/dL AO ADM SS Triglyceride [Mass/Vol] 189 mg/dL High 0 - 150 mg/dL AO ADM SS Comment on above: Interpretive Data: T riglyceride Reference Interval: Less than 150 Normal 150-199 Borderline high risk 200-499 High risk 500 or higher Very high risk LIPIDon 11-18-2023 Cholesterol [Mass/Vol] 170 mg/dL Normal 0-200 [facility] ([place]) Comment on above: Result Comment: Chol esterol Reference Interval: Less than 200 Desirable 200-239 Borderline high risk 240 and above High risk Performed By: #### G FR, FT4, CMP, A1C, TSH, LIPID #### [id number] [place], [place] [address] Cholesterol in HDL [Mass/Vol] 50 mg/dL Normal 40-60 [facility] ([place]) Comment on above: Performed By: #### G FR, FT4, CMP, A1C, TSH, LIPID #### [id number] [place], [place] [address] Cholesterol in LDL [Mass/Vol] 82 mg/dL Normal 0-130 [facility] ([place]) Comment on above: Performed By: #### G FR, FT4, CMP, A1C, TSH, LIPID #### [address] [place], [place] [address] Triglyceride [Mass/Vol] 189 mg/dL High 0-150 [facility] ([place]) Comment on above: Result Comment: Trig lyceride Reference Interval: Less than 150 Normal 150-199 Borderline high risk 200-499 High risk 500 or higher Very high risk Performed By: #### G FR, FT4, CMP, A1C, TSH, LIPID #### [address] [place], [place] [address] TSHon 11-18-2023 TSH Qn 0.91 m[IU]/L Normal 0.36-3.74 [facility] ([place]) Comment on above: Performed By: #### G FR, FT4, CMP, A1C, TSH, LIPID #### [address] [address] No Panel InformationOrdered By: Baldo Parker on 10-16-2023 Prostate Specific Antigen Total 1.83 ng/mL 0.0-4.0 [facility] Comment on above: This test was perfor med using the TPSA assay method for [employer] chemistry system. Values obtained with differentassay methods cannot be used interchangably.When changing PSA assays in the course of monitoring apatient, additional sequential testing should be carriedout to confirm baseline values. .GFRon 08-10-2023 GFR 89 ml/min/1.73sqm Normal [facility] ([place]) Comment on above: Result Comment: GFR Population mean for , Non- Americans Ages 20-29 = 116 mL/min/1.73 sq.m. Ages 30-39 = 107 mL/min/1.73 sq.m. Ages 40-49 = 99 mL/min/1.73 sq.m. Ages 50-59 = 93 mL/min/1.73 sq.m. Ages 60-69 = 85 mL/min/1.73 sq.m. Ages 70+ = 75 mL/min/1.73 sq.m. Chronic Kidney Disease: Less than 60 mL/min/1.73 square meters End Stage Renal Disease: Less than 15 mL/min/1.73 square meters Performed By: #### G FR, FT4, CMP, A1C, TSH, LIPID #### [address] [address] GFR Non- 73 ml/min/1.73sqm Normal [facility] ([place]) Comment on above: Result Comment: GFR Population mean for , Non- Americans Ages 20-29 = 116 mL/min/1.73 sq.m. Ages 30-39 = 107 mL/min/1.73 sq.m. Ages 40-49 = 99 mL/min/1.73 sq.m. Ages 50-59 = 93 mL/min/1.73 sq.m. Ages 60-69 = 85 mL/min/1.73 sq.m. Ages 70+ = 75 mL/min/1.73 sq.m. Chronic Kidney Disease: Less than 60 mL/min/1.73 square meters End Stage Renal Disease: Less than 15 mL/min/1.73 square meters Performed By: #### G FR, FT4, CMP, A1C, TSH, LIPID #### [address] [address] A1Con 08-10-2023 HbA1c (Bld) [Mass fraction] 7.8 % High 4.3-6.4 [facility] ([place]) Comment on above: Performed By: #### T SH, FT4, LIPID, GFR, CMP, A1C #### [address] [address] CMPon 08-10-2023 Albumin Level 3.8 G/dL Normal 3.4-4.8 [facility] ([place]) Comment on above: Performed By: #### T SH, FT4, LIPID, GFR, CMP, A1C #### [address] [address] Albumin/Globulin [Mass ratio] 1.2 {ratio} Normal 1.1-2.5 [facility] ([place]) Comment on above: Performed By: #### T SH, FT4, LIPID, GFR, CMP, A1C #### [address] [address] ALP [Catalytic activity/Vol] 60 U/L Normal 40-135 [facility] ([place]) Comment on above: Performed By: #### T SH, FT4, LIPID, GFR, CMP, A1C #### [address] [address] ALT [Catalytic activity/Vol] 41 U/L Normal 16-63 [facility] ([place]) Comment on above: Performed By: #### T SH, FT4, LIPID, GFR, CMP, A1C #### [address] [address] AST [Catalytic activity/Vol] 25 U/L Normal 10-40 [facility] ([place]) Comment on above: Performed By: #### T SH, FT4, LIPID, GFR, CMP, A1C #### [address] [address] Bili Total 1.0 mg/dL Normal 0.2-1.0 [facility] ([place]) Comment on above: Result Comment: Use of this assay is not recommended for patients undergoing treatment with eltrombopag due to the potential for falsely elevated results. Performed By: #### T SH, FT4, LIPID, GFR, CMP, A1C #### [address] [address] BUN/Creatinine Ratio 15 ratio Normal 7-27 [facility] ([place]) Comment on above: Performed By: #### T SH, FT4, LIPID, GFR, CMP, A1C #### [address] [address] Calcium [Mass/Vol] 9.0 mg/dL Normal 8.4-10.2 [facility] ([place]) Comment on above: Performed By: #### T SH, FT4, LIPID, GFR, CMP, A1C #### [address] [address] Chloride [Moles/Vol] 100 mmol/L Normal 98-107 [facility] ([place]) Comment on above: Performed By: #### T SH, FT4, LIPID, GFR, CMP, A1C #### [address] [address] CO2 [Moles/Vol] 30 mmol/L Normal 23-31 [facility] ([place]) Comment on above: Performed By: #### T SH, FT4, LIPID, GFR, CMP, A1C #### [address] [address] Creatinine [Mass/Vol] 1.01 mg/dL Normal 0.70-1.30 [facility] ([place]) Comment on above: Performed By: #### T SH, FT4, LIPID, GFR, CMP, A1C #### [address] [address] Electrolyte Balance 5.0 mEq/L Normal 4.0-15.0 [facility] ([place]) Comment on above: Performed By: #### T SH, FT4, LIPID, GFR, CMP, A1C #### [address] [address] Globulin 3.3 G/dL Normal [facility] ([place]) Comment on above: Performed By: #### T SH, FT4, LIPID, GFR, CMP, A1C #### [address] [address] Glucose [Mass/Vol] 160 mg/dL High 83-110 [facility] ([place]) Comment on above: Performed By: #### T SH, FT4, LIPID, GFR, CMP, A1C #### [address] [address] Potassium [Moles/Vol] 4.4 mmol/L Normal 3.5-5.1 [facility] ([place]) Comment on above: Performed By: #### T SH, FT4, LIPID, GFR, CMP, A1C #### [address] [address] Sodium [Moles/Vol] 135 mmol/L Low 136-145 [facility] ([place]) Comment on above: Performed By: #### T SH, FT4, LIPID, GFR, CMP, A1C #### [address] [address] Total Protein 7.1 G/dL Normal 6.4-8.2 [facility] ([place]) Comment on above: Performed By: #### T SH, FT4, LIPID, GFR, CMP, A1C #### [address] [address] Urea nitrogen [Mass/Vol] 15 mg/dL Normal 7-18 [facility] ([place]) Comment on above: Performed By: #### T SH, FT4, LIPID, GFR, CMP, A1C #### [address] [address] FT4on 08-10-2023 Free T4 [Mass/Vol] 1.23 ng/dL Normal 0.76-1.46 [facility] ([place]) Comment on above: Performed By: #### T SH, FT4, LIPID, GFR, CMP, A1C #### [address] [address] LABORATORYOrdered By: SYSTEM SYSTEM on 08-10-2023 Albumin BCP dye [Mass/Vol] 3.8 G/dL Invalid Interpretation Code 3.4 - 4.8 G/dL AO ADM SS Albumin/Globulin [Mass ratio] 1.2 {ratio} Invalid Interpretation Code 1.1 - 2.5 ratio AO ADM SS ALP [Catalytic activity/Vol] 60 U/L Invalid Interpretation Code 40 - 135 U/L AO ADM SS ALT With P-5'-P [Catalytic activity/Vol] 41 U/L Invalid Interpretation Code 16 - 63 U/L AO ADM SS AST With P-5'-P [Catalytic activity/Vol] 25 U/L Invalid Interpretation Code 10 - 40 U/L AO ADM SS Bilirubin [Mass/Vol] 1.0 mg/dL Invalid Interpretation Code 0.2 - 1.0 mg/dL AO ADM SS Comment on above: Interpretive Data: U se of this assay is not recommended for patients undergoing treatment with eltrombopag due to the potential for falsely elevated results. Calcium [Mass/Vol] 9.0 mg/dL Invalid Interpretation Code 8.4 - 10.2 mg/dL AO ADM SS Chloride [Moles/Vol] 100 mmol/L Invalid Interpretation Code 98 - 107 mmol/L AO ADM SS CO2 [Moles/Vol] 30 mmol/L Invalid Interpretation Code 23 - 31 mmol/L AO ADM SS Creatinine [Mass/Vol] 1.01 mg/dL Invalid Interpretation Code 0.70 - 1.30 mg/dL AO ADM SS Electrolyte Balance 5.0 mEq/L Invalid Interpretation Code 4.0 - 15.0 mEq/L AO ADM SS Free T4 [Mass/Vol] 1.23 ng/dL Invalid Interpretation Code 0.76 - 1.46 ng/dL AO ADM SS GFR/1.73 sq M.predicted among blacks MDRD (S/P/Bld) [Vol rate/Area] 89 ml/min/1.73sqm Invalid Interpretation Code AO Chemistry S Comment on above: Interpretive Data: GFR Population mean for , Non- Americans Ages 20-29 = 116 mL/min/1.73 sq.m. Ages 30-39 = 107 mL/min/1.73 sq.m. Ages 40-49 = 99 mL/min/1.73 sq.m. Ages 50-59 = 93 mL/min/1.73 sq.m. Ages 60-69 = 85 mL/min/1.73 sq.m. Ages 70+ = 75 mL/min/1.73 sq.m. Chronic Kidney Disease: Less than 60 mL/min/1.73 square meters End Stage Renal Disease: Less than 15 mL/min/1.73 square meters GFR/1.73 sq M.predicted among non-blacks MDRD (S/P/Bld) [Vol rate/Area] 73 ml/min/1.73sqm Invalid Interpretation Code AO Chemistry S Comment on above: Interpretive Data: GFR Population mean for , Non- Americans Ages 20-29 = 116 mL/min/1.73 sq.m. Ages 30-39 = 107 mL/min/1.73 sq.m. Ages 40-49 = 99 mL/min/1.73 sq.m. Ages 50-59 = 93 mL/min/1.73 sq.m. Ages 60-69 = 85 mL/min/1.73 sq.m. Ages 70+ = 75 mL/min/1.73 sq.m. Chronic Kidney Disease: Less than 60 mL/min/1.73 square meters End Stage Renal Disease: Less than 15 mL/min/1.73 square meters Globulin 3.3 G/dL Invalid Interpretation Code AO ADM SS Glucose [Mass/Vol] 160 mg/dL Invalid Interpretation Code 83 - 110 mg/dL AO ADM SS HbA1c (Bld) [Mass fraction] 7.8 % Invalid Interpretation Code 4.3 - 6.4 % AO ADM SS Potassium [Moles/Vol] 4.4 mmol/L Invalid Interpretation Code 3.5 - 5.1 mmol/L AO ADM SS Protein [Mass/Vol] 7.1 G/dL Invalid Interpretation Code 6.4 - 8.2 G/dL AO ADM SS Sodium [Moles/Vol] 135 mmol/L Invalid Interpretation Code 136 - 145 mmol/L AO ADM SS TSH Qn 0.83 m[IU]/L Invalid Interpretation Code 0.36 - 3.74 mcIU/mL AO ADM SS Urea nitrogen [Mass/Vol] 15 mg/dL Invalid Interpretation Code 7 - 18 mg/dL AO ADM SS Urea nitrogen/Creatinine [Mass ratio] 15 ratio Invalid Interpretation Code 7 - 27 ratio AO ADM SS LABORATORYOrdered By: Melissa Hammonds on 08-10-2023 Cholesterol [Mass/Vol] 126 mg/dL Invalid Interpretation Code 0 - 200 mg/dL AO ADM SS Comment on above: Interpretive Data: C holesterol Reference Interval: Less than 200 Desirable 200-239 Borderline high risk 240 and above High risk Cholesterol in HDL [Mass/Vol] 47 mg/dL Invalid Interpretation Code 40 - 60 mg/dL AO ADM SS Cholesterol in LDL [Mass/Vol] 44 mg/dL Invalid Interpretation Code 0 - 130 mg/dL AO ADM SS Triglyceride [Mass/Vol] 177 mg/dL Invalid Interpretation Code 0 - 150 mg/dL AO ADM SS Comment on above: Interpretive Data: T riglyceride Reference Interval: Less than 150 Normal 150-199 Borderline high risk 200-499 High risk 500 or higher Very high risk LIPIDon 08-10-2023 Cholesterol [Mass/Vol] 126 mg/dL Normal 0-200 [facility] ([place]) Comment on above: Result Comment: Chol esterol Reference Interval: Less than 200 Desirable 200-239 Borderline high risk 240 and above High risk Performed By: #### G FR, FT4, CMP, A1C, TSH, LIPID #### [address] [address] Cholesterol in HDL [Mass/Vol] 47 mg/dL Normal 40-60 [facility] ([place]) Comment on above: Performed By: #### G FR, FT4, CMP, A1C, TSH, LIPID #### [address] [address] Cholesterol in LDL [Mass/Vol] 44 mg/dL Normal 0-130 [facility] ([place]) Comment on above: Performed By: #### G FR, FT4, CMP, A1C, TSH, LIPID #### [address] [address] Triglyceride [Mass/Vol] 177 mg/dL High 0-150 [facility] ([place]) Comment on above: Result Comment: Trig lyceride Reference Interval: Less than 150 Normal 150-199 Borderline high risk 200-499 High risk 500 or higher Very high risk Performed By: #### G FR, FT4, CMP, A1C, TSH, LIPID #### [address] [address] TSHon 08-10-2023 TSH Qn 0.83 m[IU]/L Normal 0.36-3.74 [facility] ([place]) Comment on above: Performed By: #### T SH, FT4, LIPID, GFR, CMP, A1C #### [address] [address] LABORATORYOrdered By: SYSTEM SYSTEM on 05-20-2023 Albumin BCP dye [Mass/Vol] 3.9 G/dL Invalid Interpretation Code 3.4 - 4.8 G/dL AO ADM SS Albumin/Globulin [Mass ratio] 1.2 {ratio} Invalid Interpretation Code 1.1 - 2.5 ratio AO ADM SS ALP [Catalytic activity/Vol] 73 U/L Invalid Interpretation Code 40 - 135 U/L AO ADM SS ALT With P-5'-P [Catalytic activity/Vol] 67 U/L Invalid Interpretation Code 16 - 63 U/L AO ADM SS AST With P-5'-P [Catalytic activity/Vol] 35 U/L Invalid Interpretation Code 10 - 40 U/L AO ADM SS Bilirubin [Mass/Vol] 0.7 mg/dL Invalid Interpretation Code 0.2 - 1.0 mg/dL AO ADM SS Comment on above: Interpretive Data: U se of this assay is not recommended for patients undergoing treatment with eltrombopag due to the potential for falsely elevated results. Calcium [Mass/Vol] 9.2 mg/dL Invalid Interpretation Code 8.4 - 10.2 mg/dL AO ADM SS Chloride [Moles/Vol] 100 mmol/L Invalid Interpretation Code 98 - 107 mmol/L AO ADM SS CO2 [Moles/Vol] 25 mmol/L Invalid Interpretation Code 23 - 31 mmol/L AO ADM SS Creatinine [Mass/Vol] 0.94 mg/dL Invalid Interpretation Code 0.70 - 1.30 mg/dL AO ADM SS Electrolyte Balance 12.0 mEq/L Invalid Interpretation Code 4.0 - 15.0 mEq/L AO ADM SS Free T4 [Mass/Vol] 1.10 ng/dL Invalid Interpretation Code 0.76 - 1.46 ng/dL AO ADM SS GFR/1.73 sq M.predicted among blacks MDRD (S/P/Bld) [Vol rate/Area] 96 ml/min/1.73sqm Invalid Interpretation Code AO Chemistry S Comment on above: Interpretive Data: GFR Population mean for , Non- Americans Ages 20-29 = 116 mL/min/1.73 sq.m. Ages 30-39 = 107 mL/min/1.73 sq.m. Ages 40-49 = 99 mL/min/1.73 sq.m. Ages 50-59 = 93 mL/min/1.73 sq.m. Ages 60-69 = 85 mL/min/1.73 sq.m. Ages 70+ = 75 mL/min/1.73 sq.m. Chronic Kidney Disease: Less than 60 mL/min/1.73 square meters End Stage Renal Disease: Less than 15 mL/min/1.73 square meters GFR/1.73 sq M.predicted among non-blacks MDRD (S/P/Bld) [Vol rate/Area] 79 ml/min/1.73sqm Invalid Interpretation Code AO Chemistry S Comment on above: Interpretive Data: GFR Population mean for , Non- Americans Ages 20-29 = 116 mL/min/1.73 sq.m. Ages 30-39 = 107 mL/min/1.73 sq.m. Ages 40-49 = 99 mL/min/1.73 sq.m. Ages 50-59 = 93 mL/min/1.73 sq.m. Ages 60-69 = 85 mL/min/1.73 sq.m. Ages 70+ = 75 mL/min/1.73 sq.m. Chronic Kidney Disease: Less than 60 mL/min/1.73 square meters End Stage Renal Disease: Less than 15 mL/min/1.73 square meters Globulin 3.2 G/dL Invalid Interpretation Code AO ADM SS Glucose [Mass/Vol] 169 mg/dL Invalid Interpretation Code 83 - 110 mg/dL AO ADM SS HbA1c (Bld) [Mass fraction] 8.6 % Invalid Interpretation Code 4.3 - 6.4 % AO ADM SS Potassium [Moles/Vol] 4.5 mmol/L Invalid Interpretation Code 3.5 - 5.1 mmol/L AO ADM SS Protein [Mass/Vol] 7.1 G/dL Invalid Interpretation Code 6.4 - 8.2 G/dL AO ADM SS Sodium [Moles/Vol] 137 mmol/L Invalid Interpretation Code 136 - 145 mmol/L AO ADM SS TSH Qn 2.46 m[IU]/L Invalid Interpretation Code 0.36 - 3.74 mcIU/mL AO ADM SS Urea nitrogen [Mass/Vol] 11 mg/dL Invalid Interpretation Code 7 - 18 mg/dL AO ADM SS Urea nitrogen/Creatinine [Mass ratio] 12 ratio Invalid Interpretation Code 7 - 27 ratio AO ADM SS LABORATORYOrdered By: Melissa Hammonds on 05-20-2023 Cholesterol [Mass/Vol] 154 mg/dL Invalid Interpretation Code 0 - 200 mg/dL AO ADM SS Comment on above: Interpretive Data: C holesterol Reference Interval: Less than 200 Desirable 200-239 Borderline high risk 240 and above High risk Cholesterol in HDL [Mass/Vol] 45 mg/dL Invalid Interpretation Code 40 - 60 mg/dL AO ADM SS Cholesterol in LDL [Mass/Vol] 71 mg/dL Invalid Interpretation Code 0 - 130 mg/dL AO ADM SS Triglyceride [Mass/Vol] 190 mg/dL Invalid Interpretation Code 0 - 150 mg/dL AO ADM SS Comment on above: Interpretive Data: T riglyceride Reference Interval: Less than 150 Normal 150-199 Borderline high risk 200-499 High risk 500 or higher Very high risk LABORATORYOrdered By: SYSTEM SYSTEM on 04-16-2023 Potassium [Moles/Vol] 4.8 mmol/L Invalid Interpretation Code 3.5 - 5.1 mmol/L AO ADM SS LABORATORYOrdered By: Kat Mario on 04-08-2023 Basophil, Absolute 0.0 103/mcL Invalid Interpretation Code 0.0 - 0.2 10^3/mcL AO Workflow SS Basophils/100 WBC (Bld) 0.2 % Invalid Interpretation Code 0.0 - 2.5 % AO Workflow SS Eosinophil, Absolute 0.2 103/mcL Invalid Interpretation Code 0.0 - 0.4 10^3/mcL AO Workflow SS Eosinophils/100 WBC (Bld) 2.9 % Invalid Interpretation Code 0.0 - 7.0 % AO Workflow SS Erythrocyte distribution width (RBC) [Ratio] 14.0 % Invalid Interpretation Code 11.5 - 14.5 % AO Workflow SS Hematocrit (Bld) [Volume fraction] 43.6 % Invalid Interpretation Code 42.0 - 52.0 % AO Workflow SS Hemoglobin (Bld) [Mass/Vol] 14.3 G/dL Invalid Interpretation Code 14.0 - 18.0 G/dL AO Workflow SS Lymphocyte, Absolute 2.3 103/mcL Invalid Interpretation Code 0.8 - 3.9 10^3/mcL AO Workflow SS Lymphocytes/100 WBC (Bld) 33.6 % Invalid Interpretation Code 10.0 - 50.0 % AO Workflow SS MCH (RBC) [Entitic mass] 29.8 pg Invalid Interpretation Code 27.0 - 31.2 pg AO Workflow SS MCHC 32.7 G/dL Invalid Interpretation Code 31.8 - 35.4 G/dL AO Workflow SS MCV (RBC) [Entitic vol] 91.1 fL Invalid Interpretation Code 80.0 - 94.0 fL AO Workflow SS Monocyte, Absolute 0.6 103/mcL Invalid Interpretation Code 0.2 - 1.0 10^3/mcL AO Workflow SS Monocytes/100 WBC (Bld) 8.2 % Invalid Interpretation Code 1.7 - 13.0 % AO Workflow SS Neutrophil, Absolute 3.7 103/mcL Invalid Interpretation Code 2.9 - 6.2 10^3/mcL AO Workflow SS Neutrophils/100 WBC (Bld) 55.1 % Invalid Interpretation Code 37.0 - 80.0 % AO Workflow SS Platelet mean volume (Bld) [Entitic vol] 8.3 fL Invalid Interpretation Code 7.4 - 10.4 fL AO Workflow SS Platelets (Bld) [#/Vol] 276 103/mcL Invalid Interpretation Code 130 - 400 10^3/mcL AO Workflow SS RBC (Bld) [#/Vol] 4.78 106/mcL Invalid Interpretation Code 4.04 - 6.13 10^6/mcL AO Workflow SS WBC (Bld) [#/Vol] 6.7 103/mcL Invalid Interpretation Code 4.6 - 10.8 10^3/mcL AO Workflow SS LABORATORYOrdered By: SYSTEM SYSTEM on 04-08-2023 Calcium [Mass/Vol] 9.4 mg/dL Invalid Interpretation Code 8.4 - 10.2 mg/dL AO ADM SS Chloride [Moles/Vol] 101 mmol/L Invalid Interpretation Code 98 - 107 mmol/L AO ADM SS CO2 [Moles/Vol] 28 mmol/L Invalid Interpretation Code 23 - 31 mmol/L AO ADM SS Creatinine [Mass/Vol] 1.02 mg/dL Invalid Interpretation Code 0.70 - 1.30 mg/dL AO ADM SS Electrolyte Balance 10.0 mEq/L Invalid Interpretation Code 4.0 - 15.0 mEq/L AO ADM SS GFR/1.73 sq M.predicted among blacks MDRD (S/P/Bld) [Vol rate/Area] 88 ml/min/1.73sqm Invalid Interpretation Code AO Chemistry S GFR/1.73 sq M.predicted among non-blacks MDRD (S/P/Bld) [Vol rate/Area] 72 ml/min/1.73sqm Invalid Interpretation Code AO Chemistry S Glucose [Mass/Vol] 214 mg/dL Invalid Interpretation Code 83 - 110 mg/dL AO ADM SS Potassium [Moles/Vol] 5.2 mmol/L Invalid Interpretation Code 3.5 - 5.1 mmol/L AO ADM SS Sodium [Moles/Vol] 139 mmol/L Invalid Interpretation Code 136 - 145 mmol/L AO ADM SS Urea nitrogen [Mass/Vol] 14 mg/dL Invalid Interpretation Code 7 - 18 mg/dL AO ADM SS Urea nitrogen/Creatinine [Mass ratio] 14 ratio Invalid Interpretation Code 7 - 27 ratio AO ADM SS Free T3 [Mass/Vol] 2.57 pg/mL Invalid Interpretation Code 2.30 - 4.00 pg/mL AO ADM SS Free T4 [Mass/Vol] 1.35 ng/dL Invalid Interpretation Code 0.76 - 1.46 ng/dL AO ADM SS TSH Qn 1.02 m[IU]/L Invalid Interpretation Code 0.36 - 3.74 mcIU/mL AO ADM SS LABORATORYOrdered By: SYSTEM SYSTEM on 11-19-2022 Albumin BCP dye [Mass/Vol] 3.9 G/dL Invalid Interpretation Code 3.4 - 4.8 G/dL AO ADM SS Albumin/Globulin [Mass ratio] 1.3 {ratio} Invalid Interpretation Code 1.1 - 2.5 ratio AO ADM SS ALP [Catalytic activity/Vol] 62 U/L Invalid Interpretation Code 40 - 135 U/L AO ADM SS ALT With P-5'-P [Catalytic activity/Vol] 48 U/L Invalid Interpretation Code 16 - 63 U/L AO ADM SS AST With P-5'-P [Catalytic activity/Vol] 21 U/L Invalid Interpretation Code 10 - 40 U/L AO ADM SS Bilirubin [Mass/Vol] 0.9 mg/dL Invalid Interpretation Code 0.2 - 1.0 mg/dL AO ADM SS Calcium [Mass/Vol] 9.0 mg/dL Invalid Interpretation Code 8.4 - 10.2 mg/dL AO ADM SS Chloride [Moles/Vol] 100 mmol/L Invalid Interpretation Code 98 - 107 mmol/L AO ADM SS CO2 [Moles/Vol] 28 mmol/L Invalid Interpretation Code 23 - 31 mmol/L AO ADM SS Creatinine [Mass/Vol] 0.98 mg/dL Invalid Interpretation Code 0.70 - 1.30 mg/dL AO ADM SS Electrolyte Balance 10.0 mEq/L Invalid Interpretation Code 4.0 - 15.0 mEq/L AO ADM SS Free T4 [Mass/Vol] 1.38 ng/dL Invalid Interpretation Code 0.76 - 1.46 ng/dL AO ADM SS GFR 92 ml/min/1.73sqm Invalid Interpretation Code AO Chemistry S GFR Non- 76 ml/min/1.73sqm Invalid Interpretation Code AO Chemistry S Globulin 2.9 G/dL Invalid Interpretation Code AO ADM SS Glucose [Mass/Vol] 202 mg/dL Invalid Interpretation Code 83 - 110 mg/dL AO ADM SS HbA1c (Bld) [Mass fraction] 8.7 % Invalid Interpretation Code 4.3 - 6.4 % AO ADM SS Potassium [Moles/Vol] 4.3 mmol/L Invalid Interpretation Code 3.5 - 5.1 mmol/L AO ADM SS Protein [Mass/Vol] 6.8 G/dL Invalid Interpretation Code 6.4 - 8.2 G/dL AO ADM SS Sodium [Moles/Vol] 138 mmol/L Invalid Interpretation Code 136 - 145 mmol/L AO ADM SS TSH Qn 0.27 m[IU]/L Invalid Interpretation Code 0.36 - 3.74 mcIU/mL AO ADM SS Urea nitrogen [Mass/Vol] 14 mg/dL Invalid Interpretation Code 7 - 18 mg/dL AO ADM SS Urea nitrogen/Creatinine [Mass ratio] 14 ratio Invalid Interpretation Code 7 - 27 ratio AO ADM SS LABORATORYOrdered By: Denisse Krishnan on 11-19-2022 Cholesterol [Mass/Vol] 156 mg/dL Invalid Interpretation Code 0 - 200 mg/dL AO ADM SS Cholesterol in HDL [Mass/Vol] 48 mg/dL Invalid Interpretation Code 40 - 60 mg/dL AO ADM SS Cholesterol in LDL [Mass/Vol] 68 mg/dL Invalid Interpretation Code 0 - 130 mg/dL AO ADM SS Triglyceride [Mass/Vol] 200 mg/dL Invalid Interpretation Code 0 - 150 mg/dL AO ADM SS No Panel Informationon 10-22 Prostate Specific Antigen Screen 1.43 ng/mL 0.00-4.00 [facility] Work Phone: Comment on above: This test was perfor med using the TPSA assay method for the[facility] chemistry system. Values obtained with differentassay methods cannot be used interchangably.When changing PSA assays in the course of monitoring apatient, additional sequential testing should be carriedout to confirm baseline values. LABORATORYOrdered By: Denisse Tarango on 08-20-2022 Albumin BCP dye [Mass/Vol] 4.0 G/dL Invalid Interpretation Code 3.4 - 4.8 G/dL AO ADM SS Albumin/Globulin [Mass ratio] 1.4 {ratio} Invalid Interpretation Code 1.1 - 2.5 ratio AO ADM SS ALP [Catalytic activity/Vol] 63 U/L Invalid Interpretation Code 40 - 135 U/L AO ADM SS ALT With P-5'-P [Catalytic activity/Vol] 45 U/L Invalid Interpretation Code 16 - 63 U/L AO ADM SS AST With P-5'-P [Catalytic activity/Vol] 23 U/L Invalid Interpretation Code 10 - 40 U/L AO ADM SS Bilirubin [Mass/Vol] 0.4 mg/dL Invalid Interpretation Code 0.2 - 1.0 mg/dL AO ADM SS Calcium [Mass/Vol] 9.1 mg/dL Invalid Interpretation Code 8.4 - 10.2 mg/dL AO ADM SS Chloride [Moles/Vol] 102 mmol/L Invalid Interpretation Code 98 - 107 mmol/L AO ADM SS Cholesterol [Mass/Vol] 134 mg/dL Invalid Interpretation Code 0 - 200 mg/dL AO ADM SS Cholesterol in HDL [Mass/Vol] 48 mg/dL Invalid Interpretation Code 40 - 60 mg/dL AO ADM SS Cholesterol in LDL [Mass/Vol] 63 mg/dL Invalid Interpretation Code 0 - 130 mg/dL AO ADM SS CO2 [Moles/Vol] 27 mmol/L Invalid Interpretation Code 23 - 31 mmol/L AO ADM SS Creatinine [Mass/Vol] 1.06 mg/dL Invalid Interpretation Code 0.70 - 1.30 mg/dL AO ADM SS Electrolyte Balance 9.0 mEq/L Invalid Interpretation Code 4.0 - 15.0 mEq/L AO ADM SS Globulin 2.9 G/dL Invalid Interpretation Code AO ADM SS Glucose [Mass/Vol] 172 mg/dL Invalid Interpretation Code 80 - 115 mg/dL AO ADM SS Potassium [Moles/Vol] 4.4 mmol/L Invalid Interpretation Code 3.5 - 5.1 mmol/L AO ADM SS Protein [Mass/Vol] 6.9 G/dL Invalid Interpretation Code 6.4 - 8.2 G/dL AO ADM SS Sodium [Moles/Vol] 138 mmol/L Invalid Interpretation Code 136 - 145 mmol/L AO ADM SS Triglyceride [Mass/Vol] 115 mg/dL Invalid Interpretation Code 0 - 150 mg/dL AO ADM SS TSH Qn 0.26 m[IU]/L Invalid Interpretation Code 0.36 - 3.74 mcIU/mL AO ADM SS Urea nitrogen [Mass/Vol] 22 mg/dL Invalid Interpretation Code 7 - 18 mg/dL AO ADM SS Urea nitrogen/Creatinine [Mass ratio] 21 ratio Invalid Interpretation Code 7 - 27 ratio AO ADM SS LABORATORYOrdered By: SYSTEM SYSTEM on 08-20-2022 GFR 84 ml/min/1.73sqm Invalid Interpretation Code AO Chemistry S GFR Non- 69 ml/min/1.73sqm Invalid Interpretation Code AO Chemistry S LABORATORYOrdered By: Sharonda Olivas on 08-20-2022 HbA1c (Bld) [Mass fraction] 7.4 % Invalid Interpretation Code 4.3 - 6.4 % AO ADM SS LABORATORYOrdered By: Denisse Krishnan on 05-21-2022 Albumin BCP dye [Mass/Vol] 3.9 G/dL Invalid Interpretation Code 3.4 - 4.8 G/dL AO ADM SS Albumin/Globulin [Mass ratio] 1.4 {ratio} Invalid Interpretation Code 1.1 - 2.5 ratio AO ADM SS ALP [Catalytic activity/Vol] 61 U/L Invalid Interpretation Code 40 - 135 U/L AO ADM SS AST With P-5'-P [Catalytic activity/Vol] 24 U/L Invalid Interpretation Code 10 - 40 U/L AO ADM SS Bilirubin [Mass/Vol] 0.7 mg/dL Invalid Interpretation Code 0.2 - 1.0 mg/dL AO ADM SS Calcium [Mass/Vol] 9.4 mg/dL Invalid Interpretation Code 8.4 - 10.2 mg/dL AO ADM SS Chloride [Moles/Vol] 103 mmol/L Invalid Interpretation Code 98 - 107 mmol/L AO ADM SS Cholesterol [Mass/Vol] 140 mg/dL Invalid Interpretation Code 0 - 200 mg/dL AO ADM SS Cholesterol in HDL [Mass/Vol] 44 mg/dL Invalid Interpretation Code 40 - 60 mg/dL AO ADM SS Cholesterol in LDL [Mass/Vol] 57 mg/dL Invalid Interpretation Code 0 - 130 mg/dL AO ADM SS CO2 [Moles/Vol] 28 mmol/L Invalid Interpretation Code 23 - 31 mmol/L AO ADM SS Creatinine [Mass/Vol] 1.00 mg/dL Invalid Interpretation Code 0.70 - 1.30 mg/dL AO ADM SS Electrolyte Balance 8.0 mEq/L Invalid Interpretation Code 4.0 - 15.0 mEq/L AO ADM SS Free T3 [Mass/Vol] 2.82 pg/mL Invalid Interpretation Code 2.30 - 4.00 pg/mL AO ADM SS Free T4 [Mass/Vol] 1.56 ng/dL Invalid Interpretation Code 0.76 - 1.46 ng/dL AO ADM SS Globulin 2.8 G/dL Invalid Interpretation Code AO ADM SS Glucose [Mass/Vol] 158 mg/dL Invalid Interpretation Code 80 - 115 mg/dL AO ADM SS HbA1c (Bld) [Mass fraction] 8.4 % Invalid Interpretation Code 4.3 - 6.4 % AO ADM SS Potassium [Moles/Vol] 4.4 mmol/L Invalid Interpretation Code 3.5 - 5.1 mmol/L AO ADM SS Protein [Mass/Vol] 6.7 G/dL Invalid Interpretation Code 6.4 - 8.2 G/dL AO ADM SS Sodium [Moles/Vol] 139 mmol/L Invalid Interpretation Code 136 - 145 mmol/L AO ADM SS Triglyceride [Mass/Vol] 197 mg/dL Invalid Interpretation Code 0 - 150 mg/dL AO ADM SS TSH Qn 0.02 m[IU]/L Invalid Interpretation Code 0.36 - 3.74 mcIU/mL AO ADM SS Urea nitrogen [Mass/Vol] 12 mg/dL Invalid Interpretation Code 7 - 18 mg/dL AO ADM SS Urea nitrogen/Creatinine [Mass ratio] 12 ratio Invalid Interpretation Code 7 - 27 ratio AO ADM SS LABORATORYOrdered By: Abhijit Feliciano on 05-21-2022 ALT With P-5'-P [Catalytic activity/Vol] 55 U/L Invalid Interpretation Code 16 - 63 U/L AO ADM SS LABORATORYOrdered By: SYSTEM SYSTEM on 05-21-2022 GFR 90 ml/min/1.73sqm Invalid Interpretation Code AO Chemistry S GFR Non- 74 ml/min/1.73sqm Invalid Interpretation Code AO Chemistry S LABORATORYOrdered By: Melissa Hammonds on 02-17-2022 Albumin BCP dye [Mass/Vol] 3.9 G/dL Invalid Interpretation Code 3.4 - 4.8 G/dL AO ADM SS Albumin/Globulin [Mass ratio] 1.2 {ratio} Invalid Interpretation Code 1.1 - 2.5 ratio AO ADM SS ALP [Catalytic activity/Vol] 60 U/L Invalid Interpretation Code 40 - 135 U/L AO ADM SS ALT With P-5'-P [Catalytic activity/Vol] 61 U/L Invalid Interpretation Code 16 - 63 U/L AO ADM SS AST With P-5'-P [Catalytic activity/Vol] 28 U/L Invalid Interpretation Code 10 - 40 U/L AO ADM SS Bilirubin [Mass/Vol] 0.9 mg/dL Invalid Interpretation Code 0.2 - 1.0 mg/dL AO ADM SS Calcium [Mass/Vol] 9.5 mg/dL Invalid Interpretation Code 8.4 - 10.2 mg/dL AO ADM SS Chloride [Moles/Vol] 101 mmol/L Invalid Interpretation Code 98 - 107 mmol/L AO ADM SS Cholesterol [Mass/Vol] 157 mg/dL Invalid Interpretation Code 0 - 200 mg/dL AO ADM SS Cholesterol in HDL [Mass/Vol] 50 mg/dL Invalid Interpretation Code 40 - 60 mg/dL AO ADM SS Cholesterol in LDL [Mass/Vol] 72 mg/dL Invalid Interpretation Code 0 - 130 mg/dL AO ADM SS CO2 [Moles/Vol] 27 mmol/L Invalid Interpretation Code 23 - 31 mmol/L AO ADM SS Creatinine [Mass/Vol] 0.96 mg/dL Invalid Interpretation Code 0.70 - 1.30 mg/dL AO ADM SS Electrolyte Balance 12.0 mEq/L Invalid Interpretation Code 4.0 - 15.0 mEq/L AO ADM SS Free T3 [Mass/Vol] 2.70 pg/mL Invalid Interpretation Code 2.30 - 4.00 pg/mL AO ADM SS Free T4 [Mass/Vol] 1.46 ng/dL Invalid Interpretation Code 0.76 - 1.46 ng/dL AO ADM SS Globulin 3.2 G/dL Invalid Interpretation Code AO ADM SS Glucose [Mass/Vol] 187 mg/dL Invalid Interpretation Code 80 - 115 mg/dL AO ADM SS HbA1c (Bld) [Mass fraction] 7.6 % Invalid Interpretation Code 4.3 - 6.4 % AO ADM SS Potassium [Moles/Vol] 5.0 mmol/L Invalid Interpretation Code 3.5 - 5.1 mmol/L AO ADM SS Protein [Mass/Vol] 7.1 G/dL Invalid Interpretation Code 6.4 - 8.2 G/dL AO ADM SS Sodium [Moles/Vol] 140 mmol/L Invalid Interpretation Code 136 - 145 mmol/L AO ADM SS Triglyceride [Mass/Vol] 175 mg/dL Invalid Interpretation Code 0 - 150 mg/dL AO ADM SS TSH Qn 0.04 m[IU]/L Invalid Interpretation Code 0.36 - 3.74 mcIU/mL AO ADM SS Urea nitrogen [Mass/Vol] 12 mg/dL Invalid Interpretation Code 7 - 18 mg/dL AO ADM SS Urea nitrogen/Creatinine [Mass ratio] 12 ratio Invalid Interpretation Code 7 - 27 ratio AO ADM SS LABORATORYOrdered By: SYSTEM SYSTEM on 02-17-2022 GFR 94 ml/min/1.73sqm Invalid Interpretation Code AO Chemistry S GFR Non- 78 ml/min/1.73sqm Invalid Interpretation Code AO Chemistry S LABORATORYOrdered By: Sharonda Olivas on 11-14-2021 Albumin BCP dye [Mass/Vol] 4.0 G/dL Invalid Interpretation Code 3.4 - 4.8 G/dL AO ADM SS Albumin/Globulin [Mass ratio] 1.2 {ratio} Invalid Interpretation Code 1.1 - 2.5 ratio AO ADM SS ALP [Catalytic activity/Vol] 65 U/L Invalid Interpretation Code 40 - 135 U/L AO ADM SS ALT With P-5'-P [Catalytic activity/Vol] 43 U/L Invalid Interpretation Code 16 - 63 U/L AO ADM SS AST With P-5'-P [Catalytic activity/Vol] 15 U/L Invalid Interpretation Code 10 - 40 U/L AO ADM SS Bilirubin [Mass/Vol] 0.7 mg/dL Invalid Interpretation Code 0.2 - 1.0 mg/dL AO ADM SS Calcium [Mass/Vol] 9.6 mg/dL Invalid Interpretation Code 8.4 - 10.2 mg/dL AO ADM SS Chloride [Moles/Vol] 100 mmol/L Invalid Interpretation Code 98 - 107 mmol/L AO ADM SS Cholesterol [Mass/Vol] 155 mg/dL Invalid Interpretation Code 0 - 200 mg/dL AO ADM SS Cholesterol in HDL [Mass/Vol] 52 mg/dL Invalid Interpretation Code 40 - 60 mg/dL AO ADM SS Cholesterol in LDL [Mass/Vol] 77 mg/dL Invalid Interpretation Code 0 - 130 mg/dL AO ADM SS CO2 [Moles/Vol] 29 mmol/L Invalid Interpretation Code 23 - 31 mmol/L AO ADM SS Creatinine [Mass/Vol] 0.89 mg/dL Invalid Interpretation Code 0.70 - 1.30 mg/dL AO ADM SS Electrolyte Balance 10.0 mEq/L Invalid Interpretation Code AO ADM SS Free T3 [Mass/Vol] 2.11 pg/mL Invalid Interpretation Code 2.30 - 4.00 pg/mL AO ADM SS Free T4 [Mass/Vol] 1.36 ng/dL Invalid Interpretation Code 0.76 - 1.46 ng/dL AO ADM SS Globulin 3.2 G/dL Invalid Interpretation Code AO ADM SS Glucose [Mass/Vol] 144 mg/dL Invalid Interpretation Code 80 - 115 mg/dL AO ADM SS HbA1c (Bld) [Mass fraction] 7.4 % Invalid Interpretation Code 4.3 - 6.4 % AO ADM SS Potassium [Moles/Vol] 4.7 mmol/L Invalid Interpretation Code 3.5 - 5.1 mmol/L AO ADM SS Protein [Mass/Vol] 7.2 G/dL Invalid Interpretation Code 6.4 - 8.2 G/dL AO ADM SS Sodium [Moles/Vol] 139 mmol/L Invalid Interpretation Code 136 - 145 mmol/L AO ADM SS Triglyceride [Mass/Vol] 130 mg/dL Invalid Interpretation Code 0 - 150 mg/dL AO ADM SS TSH Qn 0.29 m[IU]/L Invalid Interpretation Code 0.36 - 3.74 mcIU/mL AO ADM SS Urea nitrogen [Mass/Vol] 16 mg/dL Invalid Interpretation Code 7 - 18 mg/dL AO ADM SS Urea nitrogen/Creatinine [Mass ratio] 18 ratio Invalid Interpretation Code 7 - 27 ratio AO ADM SS LABORATORYOrdered By: SYSTEM SYSTEM on 11-14-2021 GFR 103 ml/min/1.73sqm Invalid Interpretation Code AO Chemistry S GFR Non- 85 ml/min/1.73sqm Invalid Interpretation Code AO Chemistry S MSCon 2021 [facility] [place] DATE OF SERVICE: REASON FOR VISIT: Tick bite on the right side of the neck. HISTORY OF PRESENT ILLNESS: This is a 71-year-old male who went hunting yesterday and had a tick bite on the right side of his neck. It was removed this morning, but part of the tick is retained. There is some redness at the spot. Patient is concerned. Patient also stated that he is currently being treated for a sinus infection with Augmentin by his doctor, but it is causing him a lot of GI side effects. So far, he took only 4 days, but could not tolerate the GI side effects so he had stopped taking and his sinus symptom is still ongoing. No body aches. No muscle pain or joint pain. REVIEW OF SYSTEMS: Review of all other systems is normal. ALLERGIES: NKA. MEDICATIONS: List was reviewed. PHYSICAL EXAMINATION: He is awake and alert, not in distress, no dyspnea. Temperature 98.1, blood pressure 174/81, pulse 80, respirations 22. Pulse oximetry 97% on room air. Pain score is 1/10. HEENT: Remarkable for moderate nasal congestion and paranasal sinus tenderness. Chest: Clear to [facility] PATIENT NAME: B[facility]HEWS [address] [facility] [facility] MEDICAL REC #: [id number] [place] [address] [facility] REPORT [facility] auscultation. Heart: Regular rate and rhythm. On examination of the right side of his neck, he has a small area of erythema and induration on the right side of the neck about 1-2 mm in size. There is a remnant part of a tick that is retained. No blister or pustule. No skin excoriation. The rest of the skin is normal. ASSESSMENT: 1. Tick bite to right side of the neck. 2. Acute sinusitis. PLAN: Clinical findings were discussed with patient in detail. Regarding the tick bite, I explained to him that there is no indication to remove the rest of the retained part of the tick. Eventually it will be extruded by the body. I explained to him about doxycycline prophylactic dose 2 capsules 100 mg, but the patient is currently on Augmentin, but he has stopped taking it because of the GI side effects and requested an alternative. So I explained to him that I will give him doxycycline for one week, but for today only, he will take both the pills at one time and from tomorrow start one capsule twice a day for 6 more days. He can stop Augmentin and I want him to notify his doctor of this change as well. I explained to him about Lyme disease. If any symptoms suggestive of Lyme disease, he must follow up with his [facility] PATIENT NAME: [facility]EN [facility]HEWS [facility] MEDICAL REC #: [id number] [place] [address] [facility] REPORT [facility] doctor for evaluation and care. Continue [id number] medicine as needed. Patient understands and agrees. His questions were answered to his satisfaction. Pepe Ervin MD [id number] SSI File#: [id number] END OF DOCUMENT / CHANGE LOG FOLLOWS Last Edited By Elec. Signed By Pepe Ervin MD #PAWPR Pepe Ervin MD #PAWPR on 10/01/2021 15:15 ET on 10/01/2021 15:15 ET Revision Number - 2 Verified/Reviewed by 10/01/21 1515 JENSENPR [facility] PATIENT NAME: [facility]EN [facility]HEWS [facility] MEDICAL REC #: [id number] [place] [address] [facility] REPORT [facility] Normal [facility] LABORATORYOrdered By: Denisse Krishnan on 08-15-2021 Cholesterol [Mass/Vol] 140 mg/dL Invalid Interpretation Code 0 - 200 mg/dL AO ADM SS Cholesterol in HDL [Mass/Vol] 45 mg/dL Invalid Interpretation Code 40 - 60 mg/dL AO ADM SS Cholesterol in LDL [Mass/Vol] 65 mg/dL Invalid Interpretation Code 0 - 130 mg/dL AO ADM SS Triglyceride [Mass/Vol] 152 mg/dL Invalid Interpretation Code 0 - 150 mg/dL AO ADM SS TSH Qn 1.44 m[IU]/L Invalid Interpretation Code 0.36 - 3.74 mcIU/mL AO ADM SS LABORATORYOrdered By: Abhijit Feliciano on 08-15-2021 HbA1c (Bld) [Mass fraction] 7.6 % Invalid Interpretation Code 4.3 - 6.4 % AO ADM SS Encounters Encounter Date Encounter Type Care Provider Facility Start: 08-23-2025 ambulatory Naz Horton Facility: [facility] Start: 03-03-2025 End: 03-03-[address] Naz Horton MD Work Phone: [facility] Work Phone: Start: 03-03-2025 End: 03-03-[address] aNz Horton MD -Laboratory Work Phone: Start: 03-03-2025 End: 03-03-2025 ambulatory Naz Horton Facility:[facility] Start: 10-17-2024 End: 10-17-2024 ambulatory Guy Wilkes Facility:[facility] Start: 08-17-2024 End: 08-21-2024 ambulatory GUY WILKES MD Facility:[facility] Start: 08-17-2024 End: 08-21-2024 Outreach Lab GUY WILKES MD [facility] Start: 05-18-2024 End: 05-22-2024 ambulatory GUY WILKES MD Facility:B Start: 05-18-2024 End: 05-22-2024 Outreach Lab GUY WILKES MD [facility] Start: 02-26-2024 End: 03-01-2024 ambulatory GUY WILKES MD Facility:[facility] Start: 02-17-2024 End: 02-21-2024 ambulatory GUY WILKES MD Facility:[facility] Start: 02-17-2024 End: 02-21-2024 Outreach Lab GUY WILKES MD [facility] Start: 11-18-2023 End: 11-22-2023 ambulatory GUY WILKES MD Facility:[facility] Start: 11-18-2023 End: 11-22-2023 Outreach Lab GUY WILKES MD [facility] Start: 10-16-2023 End: 10-16-2023 ambulatory [facility] Work Phone: Start: 10-16-2023 End: 10-16-2023 Patient encounter procedure [facility]-Laboratory Work Phone: Start: 08-10-2023 End: 08-14-2023 ambulatory GUY WILKES MD Facility:[facility] Start: 08-10-2023 End: 08-14-2023 Outreach Lab GUY WILKES MD [facility] Start: 05-20-2023 End: 05-24-2023 Outreach Lab GUY WILKES MD [facility] Start: 04-16-2023 End: 04-16-[address] BALDO PARKER MD [facility] Start: 04-08-2023 End: 04-08-2023 Well adult monitoring check done GUY WILKES MD [facility] Start: 04-08-2023 End: 04-08-2023 Patient encounter procedure GUY WILKES MD [facility] Start: 04-08-2023 End: 04-08-[address] BALDO PARKER MD [facility] Start: 11-19-2022 End: 11-23-2022 Outreach Lab GUY WILKES MD [facility] Start: 10-22-2022 End: 10-22-2022 ambulatory [facility] Work Phone: Start: 10-22-2022 End: 10-22-2022 Patient encounter procedure [facility]-Laboratory Start: 08-20-2022 End: 08-24-2022 Outreach Lab GUY WILKES MD [facility] Start: 05-21-2022 End: 05-25-2022 Outreach Lab GUY WILKES MD [facility] Start: 02-17-2022 End: 02-17-2022 Patient encounter procedure GUY WILKES MD [facility] Start: 11-14-2021 End: 11-14-2021 Patient encounter procedure GUY WILKES MD [facility] Start: 09-24-2021 Patient encounter procedure Pepe Ervin MD Work Phone: [facility] Start: 09-24-2021 Progress Note Pepe Ervin MD Work Phone: [facility] Start: 08-15-2021 End: 08-19-2021 Outreach Lab GUY WILKES MD [facility] Procedures Date Procedure Procedure Detail Performing Clinician Start: 03-03-2025 Urine microalbumin/creatinine ratio measurement Dr. Naz Horton MD Work Phone: Appendectomy GUY Alvarez Arthroscopic knee operation GUY WILKES MD Immunizations Immunization Date Immunization Notes Care Provider Fa [facility] 08-28-2023 influenza, high dose seasonal, preservative-free; Translations: [Fluad Quadrivalent PF ] GUY WILKES MD [facility] 08-12-2022 influenza, high dose seasonal, preservative-free GUY WILKES MD [facility] Comment on above: Early/Late Reason: E jose ramon/Late Reason: Other: 11-06-2021 SARS-CoV-2 mRNA (tozinameran) vaccine GUY WILKES MD [facility] Comment on above: Result Comment: pfiz er, booster 08-27-2021 influenza, high dose seasonal, preservative-free; Translations: [Fluad Quadrivalent PF ] GUY WILKES MD [facility] 01-21-2021 SARS-CoV-2 mRNA (tozinameran) vaccine GUY WILKES MD [facility] Comment on above: Result Comment: 2021: [id number] 12-31-2020 SARS-CoV-2 mRNA (tozinameran) vaccine GUY WILKES MD [facility] Comment on above: Result Comment: 2021: [id number] 08-02-2020 influenza, injectabl e, quadrivalent, preservative free; Translations: [Fluarix PF Quadrivalent ] GUY WILKES MD [facility] 08-29-2019 influenza, injectabl e, quadrivalent, preservative free; Translations: [Fluarix PF Quadrivalent ] GUY WILKES MD [facility] 08-24-2018 influenza virus vacc ine, unspecified formulation GUY WILKES MD [facility] 08-24-2018 pneumococcal conjuga te vaccine, 13 valent GUY WILKES MD [facility] 08-03-2017 influenza virus vacc ine, unspecified formulation GUY WILKES MD [facility] 01-20-2017 pneumococcal polysaccharide vaccine, 23 valent GUY WILKES MD [facility] 07-29-2016 influenza virus vacc ine, unspecified formulation GUY WILKES MD [facility] 08-10-2015 influenza virus vacc ine, unspecified formulation GUY WILKES MD [facility] 09-07-2014 influenza virus vacc ine, unspecified formulation GUY WILKES MD [facility] 08-12-2013 influenza virus vacc ine, unspecified formulation GUY WILKES MD [facility] 04-11-2013 tetanus toxoid, redu manuel diphtheria toxoid, and acellular pertussis vaccine, adsorbed GUY WILKES MD [facility] 08-09-2012 influenza virus vacc ine, unspecified formulation GUY WILKES MD [facility] 12-05-2011 influenza virus vacc ine, unspecified formulation GUY WILKES MD [facility] Payers Date Payer Category Payer Self-pay [id number] 2023 Medicare [id number] 1950 Unknown [id number] 2.16.8 [id number] 1950 Unknown [id number] 2.16.8 [id number] 1950 Unknown [id number] 2.16.8 [id number] 1950 Unknown [id number] 2.16.8 [id number] 1952 Unknown [id number] 2.16.8 [id number] 1952 Unknown [id number] 2.16.8 [id number] Unknown [facility] [id number] Unknown [id number] 2.16.8 [id number] Unknown [id number] 2.16.8 [id number] Unknown [id number] 2.16.8 [id number] Social History Date Type Detail Facility Start: 05-24-2019 End: 02-13-2025 Ex-smoker (finding) [facility] Start: 1950 Sex Assigned At Male A [facility] Tobacco smoking status COIS Tobacco smoking consumption unknown [facility] Start: 1950 Sex Assigned At Not on file [facility] Medical Equipment Procedure Code Equipment Code Equipment Origin al Text Equipment Identifier Dates ACCU-CHEK SOFTCL IX LANCETS Start: 05-24-2019 ACCU-CHEK SOFTCL IX LANCETS Start: 05-24-2019 ACCU-CHEK SOFTCL IX LANCETS, 0 Refill(s) Start: 05-24-2019 ACCU-CHEK SOFTCL IX LANCETS, 0 Refill(s) Start: 05-24-2019 ACCU-CHEK SOFTCL IX LANCETS, 0 Refill(s) Start: 05-24-2019 ACCU-CHEK SOFTCL IX LANCETS, 0 Refill(s) Start: 05-24-2019 ACCU-CHEK SOFTCL IX LANCETS, 0 Refill(s) Start: 05-24-2019 ACCU-CHEK SOFTCL IX LANCETS, 0 Refill(s) Start: 05-24-2019 ACCU-CHEK SOFTCL IX LANCETS, 0 Refill(s) Start: 05-24-2019 ACCU-CHEK SOFTCL IX LANCETS, 0 Refill(s) Start: 05-24-2019 ACCU-CHEK SOFTCL IX LANCETS, 0 Refill(s) Start: 05-24-2019 ACCU-CHEK SOFTCL IX LANCETS, 0 Refill(s) Start: 05-24-2019 ACCU-CHEK SOFTCL IX LANCETS, 0 Refill(s) Start: 05-24-2019 ACCU-CHEK SOFTCL IX LANCETS, 0 Refill(s) Start: 05-24-2019 ACCU-CHEK SOFTCL IX LANCETS, 0 Refill(s) Start: 05-24-2019 ACCU-CHEK SOFTCL IX LANCETS, 0 Refill(s) Start: 05-24-2019 Clinical Notes 09-24-2021 Pepe Ervin MD - 09/24/2021 1:01 PM ESTLaboratoryLaboratoryLaboratoryLaboratoryLaboratoryLaboratoryLaboratoryLaborat ory Note Date & Type Note Facility 09-24-2021 History of Present illness Narrative DATE OF SERVICE: 2021 REASON FOR VISIT: Tick bite on the right side of the neck. HISTORY OF PRESENT ILLNESS: This is a 71-year-old male who went hunting yesterday and had a tick bite on the right side of his neck. It was removed this morning, but part of the tick is retained. There is some redness at the spot. Patient is concerned. Patient also stated that he is currently being treated for a sinus infection with Augmentin by his doctor, but it is causing him a lot of GI side effects. So far, he took only 4 days, but could not tolerate the GI side effects so he had stopped taking and his sinus symptom is still ongoing. No body aches. No muscle pain or joint pain. REVIEW OF SYSTEMS: Review of all other systems is normal. ALLERGIES: NKA. MEDICATIONS: List was reviewed. PHYSICAL EXAMINATION: He is awake and alert, not in distress, no dyspnea. Temperature 98.1, blood pressure 174/81, pulse 80, respirations 22. Pulse oximetry 97% on room air. Pain score is 1/10. HEENT: Remarkable for moderate nasal congestion and paranasal sinus tenderness. Chest: Clear to auscultation. Heart: Regular rate and rhythm. On examination of the right side of his neck, he has a small area of erythema and induration on the right side of the neck about 1-2 mm in size. There is a remnant part of a tick that is retained. No blister or pustule. No skin excoriation. The rest of the skin is normal. ASSESSMENT: 1. Tick bite to right side of the neck. 2. Acute sinusitis. PLAN: Clinical findings were discussed with patient in detail. Regarding the tick bite, I explained to him that there is no indication to remove the rest of the retained part of the tick. Eventually it will be extruded by the body. I explained to him about doxycycline prophylactic dose 2 capsules 100 mg, but the patient is currently on Augmentin, but he has stopped taking it because of the GI side effects and requested an alternative. So I explained to him that I will give him doxycycline for one week, but for today only, he will take both the pills at one time and from tomorrow start one capsule twice a day for 6 more days. He can stop Augmentin and I want him to notify his doctor of this change as well. I explained to him about Lyme disease. If any symptoms suggestive of Lyme disease, he must follow up with his doctor for evaluation and care. Continue [id number] medicine as needed. Patient understands and agrees. His questions were answered to his satisfaction. Pepe Ervin MD [id number] [facility] File#: [id number] END OF DOCUMENT / CHANGE LOG FOLLOWS Last Edited By Elec. Signed By Pepe Ervin MD #[id number] Pepe Ervin MD #[id number] on 10/01/2021 15:15 ET on 10/01/2021 15:15 ET Revision Number - 2 ^^^ Verified/Reviewed by 10/01/21 1515 [facility] PATIENT NAME: BEN MATHEWS [address] [place] MEDICAL REC #: [id number] [place] [address] [facility] REPORT [facility] PHYSICIAN documented in this encounter [facility] Evaluation + Plan note Future Appointments Appointment Date:08/27/2021 10:45:00 AM Scheduled Provider:GUY WILKES MD Location:[facility] Appointment Type:PC OV Future Scheduled TestsFree T4 05/27/21 [facility] Evaluation + Plan note Future Appointments Appointment Date:11/26/2021 10:30:00 AM Scheduled Provider:GUY WILKES MD Location:[facility] Appointment Type:PC OV Future Scheduled TestsFree T4 08/27/21 [facility] Evaluation + Plan note Future Appointments Appointment Date:02/25/2022 10:30:00 AM Scheduled Provider:GUY WILKES MD Location:[facility] Appointment Type:PC OV Future Scheduled TestsFree T4 08/27/21 [facility] Evaluation + Plan note Future Appointments Appointment Date:05/29/2022 10:00:00 AM Scheduled Provider:GUY WILKES MD Location:[facility] Appointment Type:PC OV Future Scheduled TestsFree T4 08/27/21 [facility] Evaluation + Plan note Future Appointments Appointment Date:08/28/2022 09:30:00 AM Scheduled Provider:GUY WILKES MD Location:[facility] Appointment Type:PC OV Future Scheduled TestsFree T4 08/27/21Free T4 05/29/22 [facility] Evaluation + Plan note Future Appointments Appointment Date:11/28/2022 09:00:00 AM Scheduled Provider:GUY WILKES MD Location:[facility] Appointment Type:PC OV Future Scheduled TestsFree T4 08/28/22 [facility] Evaluation + Plan note Future Appointments Appointment Date:05/20/2023 09:00:00 AM Scheduled Provider: Location:[facility] Appointment Type:PC Nurse Lab Appointment Date:05/29/2023 09:00:00 AM Scheduled Provider:GUY WILKES MD Location:[facility] Appointment Type:PC OV Appointment Date:04/08/2024 11:00:00 AM Scheduled Provider: Location:[facility] Appointment Type:CV OV Future Scheduled TestsThyroid Stimulating Hormone 05/29/23Free T4 08/28/22Free T4 11/28/22A1C Hemoglobin 05/29/23Lipid Profile 05/29/23Complete Metabolic Panel 05/29/23 [facility] Evaluation + Plan note Future Appointments Appointment Date:05/29/2023 09:00:00 AM Scheduled Provider:GUY WILKES MD Location:[facility] Appointment Type:PC OV Appointment Date:04/08/2024 11:00:00 AM Scheduled Provider: Location:[facility] Appointment Type:CV OV Future Scheduled TestsFree T4 08/28/22 [facility] Evaluation + Plan note Future Appointments Appointment Date:08/28/2023 09:00:00 AM Scheduled Provider:GUY WILKES MD Location:[facility] Appointment Type:PC OV Appointment Date:04/08/2024 11:00:00 AM Scheduled Provider: Location:[facility] Appointment Type:CV OV [facility] Evaluation + Plan note Future Appointments Appointment Date:11/27/2023 09:45:00 AM Scheduled Provider:GUY WILKES MD Location:[facility] Appointment Type:PC OV Appointment Date:04/08/2024 11:00:00 AM Scheduled Provider: Location:[facility] Appointment Type:CV OV [facility] Evaluation + Plan note Future Appointments Appointment Date:02/26/2024 09:45:00 AM Scheduled Provider:GUY WILKES MD Location:[facility] Appointment Type:PC OV Appointment Date:04/18/2024 02:00:00 PM Scheduled Provider: Location:[facility] Appointment Type:CV OV [facility] Evaluation + Plan note Future Appointments Appointment Date:05/27/2024 09:00:00 AM Scheduled Provider:GUY WILKES MD Location:[facility] Appointment Type:PC OV Lab Check Appointment Date:04/21/2025 11:00:00 AM Scheduled Provider: Location:[facility] Appointment Type:CV OV [facility] Evaluation + Plan note Future Appointments Appointment Date:08/26/2024 09:00:00 AM Scheduled Provider:GUY WILKES MD Location:[facility] Appointment Type:PC OV Appointment Date:04/21/2025 11:00:00 AM Scheduled Provider:ALMAS ALMAGUER Location:[facility] Appointment Type:CV OV [facility] Evaluation note No assessment information availa ble [facility] Work Phone: Hospital course Narrative No data available for this section [facility] Hospital Discharge instructions No data available for this section [facility] Progress note No data available for this section [facility] Reason for referral (narrative) No reason for referral information available [facility] Work Phone: Summary Purpose Family History No Family History Records Found Relationship Condition Age at Onset Recorded Date/T merced father Malignant neoplasm of colon Unknown mother Malignant neoplasm of breast Unknown Advance Directives No Advanced Directives Records FoundNo Advanced Directives Records FoundNo Advanced Directives Records FoundNo Advanced Directives Records Found Additional Source Comments (unrecognized sect ion and content) No Status Records FoundNo Status Records FoundNo Status Records FoundNo Status Records Found INFORMATION SOURCE (unrecogn ized section and content) DATE CREATED AUTHOR 10/03/2021 [facility] DATE CREATED AUTHOR AUTHOR'S ORGANIZ ATION 05/24/2024 [facility] ([place]) DATE CREATED AUTHOR AUTHOR'S ORGANIZ ATION 08/23/2024 [facility] DATE CREATED AUTHOR AUTHOR'S ORGANIZ ATION 08/25/2025 [facility] Care Team (unrecognized sect ion and content) Team Status: Active Member Role Status Dates Dr. Guy Wilkes MD Family Provider Active Dr. Guy Wilkes MD Primary Care Provider Active Team Status: Inactive Member Role Status Dates Dr. Guy Wilkes MD Primary Care Provider Active Dr. Baldo Parker MD Attending Provider, Referr ing Provider Active Team Status: Active Member Role Status Dates Dr. Guy Wilkes MD Family Provider Active Dr. Naz Horton MD Primary Care Provider Active Team Status: Inactive Member Role Status Dates Dr. Naz Horton MD Primary Care Provider Active Start: March 03, 2025 End: March 03, 2025 Dr. Naz Horton MD Attending Provider Active Start: March 03, 2025 End: March 03, 2025 Dr. Naz Horton MD Referring Provider Active Start: March 03, 2025 End: March 03, 2025 Source Comments (unrecognize d section and content) In the event this informatio n is protected by the Federal Confidentiality of Alcohol and Drug Abuse Patient Records regulations: The Federal rules restrict any use of the information to criminally investigate or prosecute any alcohol or drug abuse patient.[facility] Care Team (unrecognized sect ion and content) Care Team Personnel Name: Nubia Vazquez Clerk Raina PT Position: P3 Scheduling - Service Center Manager Advanced Member Role: Other Name: GUY WILKES MD Position: P4 Physician - Primary Care Med Service: Active Provider Member Role: Primary Care Physician Address: Address: [address] [place] [address]- Care Team Related Persons Name: DANITA MATHEWS [address]: [address] [place], [place] [id number] Care Team Personnel Name: Nubia Vazquez Clerk Raina PT Position: P3 Scheduling - Service Center Manager Advanced Member Role: Other Name: GUY WILKES MD Position: P4 Physician - Primary Care Med Service: Active Provider Member Role: Primary Care Physician Address: Address: [address] [place] [address]- Care Team Related Persons Name: DANITA MATHEWS Address: [address] [place], [place] [id number] Care Team Personnel Name: Nubia Vazquezrk Raina PT Position: P3 Scheduling - Service Center Manager Advanced Member Role: Other Name: GUY WILKES MD Position: P4 Physician - Primary Care Member Role: Primary Care Physician Address: Address: [address] [place] [address] [place] [address]- Care Team Related Persons Name: DANITA MATHEWS Address: Home [address] [place] [address] [address] [place], [place] [id number] Goals (unrecognized section and content) Goals may be documented in a n alternate section FOR RECORDS PERTAINING TO PATIENTS WHO ARE OR HAVE BEEN ENROLLED IN A CHEMICAL DEPENDENCY/SUBSTANCEABUSE PROGRAM, SOME INFORMATION MAY BE OMITTED. This clinical summary was aggregated from multiple sources. Caution should be exercised in using it in the provision of clinical care. This summary normalizes information from multiple sources, and as a consequence, information in this document may materially change the coding, format and clinical context of patient data. In addition, data may be omitted in some cases. CLINICAL DECISIONS SHOULD BE BASED ON THE PRIMARY CLINICAL RECORDS. [facility] [employer] [facility]. provides no warranty or guarantee of the accuracy or completeness of information in this document.
== END | disposition home or self-care (01) ==
LOC: MTLAB 14:02
PROVIDERS: PCP Family Medicine; Referring Provider Family Medicine; Visit Provider Family Medicine
DX: E03.9 Hypothyroidism, unspecified (principal); E11.9 Type 2 diabetes mellitus without complications; I10 Essential (primary) hypertension
CPT/HCPCS: 36415; 80053; 84443; 85025

== ENCOUNTER → 2025-10-13 | Outpatient (CLI) | payer MEDICARE, SELFPAY ==
[2025-10-13 15:46] LABS: PSA,Total- Diagnostic 1.59 ng/mL (0.00-4.00)
== END | disposition home or self-care (01) ==
LOC: LAB 10-17 08:35
PROVIDERS: PCP Family Medicine; Referring Provider Urology; Visit Provider Urology
DX: R97.20 Elevated prostate specific antigen [PSA] (principal)
CPT/HCPCS: 36415; 84153

== ENCOUNTER → 2025-10-13 | Outpatient (CLI) | payer MEDICARE, SELFPAY ==
--- NOTE | 2025-10-13 13:55 | CT_ITS ---
PROCEDURE: LIMITED CHEST CT CARDIAC ONLY 10/13/2025 REASON FOR EXAM: DIABETES, HIGH CHOLESTEROL TECHNIQUE: Procedure Code: [id number] Modality: CT Procedure: LIMITED CHEST CT CARDIAC ONLY Coronal and Sagittal reconstruction series were provided. CONTRAST: None One or more dose reduction techniques were used (e.g., Automated exposure control, adjustment of the mA and/or kV according to patient size, use of iterative reconstruction technique). RADIATION DOSE SUMMARY: DLP: 243 mGycm COMPARISON: None FINDINGS: There is a 0.5 cm ground-glass nodular density in the left mid lung, image 20/80. There is a 0.4 cm solid nodule in the left mid lung, image 19/80. Lad = 660 Circumflex = 1.99 RCA = 640 Total calcium score = 1301 CT/Limited Chest CT Cardiac Only IMPRESSION: There is a 0.5 cm ground-glass nodular density in the left mid lung, image 20/8 0. There is a 0.4 cm solid nodule in the left mid lung, image 19/80. Chest CT correlation is recommended. Total calcium score = 1301, excessive plaque burden range, high likelihood of a t least 1 significant coronary artery stenosis greater than 50% diameter. Follow-up is recommended. Reading Location: [facility]
--- OUTSIDE RECORDS SUMMARY | 2025-10-13 13:59 | XMS RPT_ITS | CCD ---
Author Organization [facility] Care Team Providers Care Jig Box Operator Name Role Phone GUY WILKES MD Primary Care Physician Taylor PT, Raina Unavailable Unavailable Unavailable Primary Care Provider UnavailGUY Huerta MD Attending Unavailable GUY WILKES MD Primary Care Unavailable UGY WILKES MD Attending Unavailable GUY WILKES MD Primary Care Unavailable GUY WILKES MD Attending Unavailable GUY WILKES MD Primary Care Unavailable GUY WILKES MD Attending Unavailable GUY WILKES MD Primary Care Unavailable GUY WILKES MD Attending Unavailable GUY WILKES MD Primary Care Unavailable GUY WILKES MD Attending Unavailable GUY WILKES MD Primary Care Unavailable Dr. Naz Horton MD Primary Care Provider [phone] Dr. Naz Horton MD Attending Provider Dr. Naz Horton MD Referring Provider [phone] Guy Wilkes Primary Care Unavailable Baldo Parker Referring Unavailable Baldo Parker Attending Unavailable Naz Horton Primary Care Unavailable Baldo Parker Attending Unavailable Naz Horton Attending Unavailable Naz Horton Primary Care Unavailable Naz Horton Referring Unavailable Allergies Allergy Classification Reported Allergen(s) Allergy Type Date of Onset Reaction(s) Facility (10 sources) seasonal enviromental Allergy to substance Unknown (qualifier value) [facility] [place] NEGATED: Highlighted row has been ruled out!Unclassified (1 source) Drug allergy [facility] NEGATED: Highlighted row has been ruled out! (1 source) Drug allergy [facility] NEGATED: Highlighted row has been ruled out! (1 source) Drug allergy [facility] NEGATED: Highlighted row has been ruled out! (1 source) Drug allergy [facility] NEGATED: Highlighted row has been ruled out! (1 source) Drug allergy [facility] NEGATED: Highlighted row has been ruled out! (1 source) Drug allergy [facility] NEGATED: Highlighted row has been ruled out! (1 source) Drug allergy [facility] NEGATED: Highlighted row has been ruled out! (1 source) Drug allergy [facility] NEGATED: Highlighted row has been ruled out! (1 source) Drug allergy [facility] NEGATED: Highlighted row has been ruled out! (1 source) Drug allergy [facility] Medications Current Medications Medication Drug [...] 12:00am Start: 05-27-2024 take 1 capsule by [facility] once daily amlodipine-benazepril 5 mg-20 mg oral capsule Dose = 1 cap(s), Oral, qDay, # 90 cap(s), 3 Refill(s), Pharmacy: [facility]/pharmacy #[id number], 182.5, cm, 05/27/24 9:06:00 EDT, Height, kg, 05/27/24 9:06:00 EDT, Dosing Weight Start Date: 05/27/24 Status: Ordered Start: 02-26-2024 take 1 capsule by [facility] once daily amlodipine-benazepril 5 mg-20 mg oral capsule Dose = 1 cap(s), Oral, qDay, # 90 cap(s), 3 Refill(s), [facility]: [facility] #[id number], 182, cm, 02/26/24 9:49:00 EDT, Height, kg, 02/26/24 9:49:00 EDT, Dosing Weight Start Date: 02/26/24 Status: Ordered Start: 11-17-2023 take 1 capsule by [facility] once daily amlodipine-benazepril 5 mg-20 mg oral capsule Dose = 1 cap(s), Oral, qDay, # 90 cap(s), 0 Refill(s), [facility]: [facility] #[id number], 182, cm, 08/28/23 8:57:00 EDT, Height, kg, 08/28/23 8:57:00 EDT, Dosing Weight Start Date: 11/17/23 Status: Ordered Start: 09-03-2021 End: 08-23-2023 take 1 capsule by mouth once daily amlodipine-benazepril 5 mg-20 mg oral capsule Dose = 1 cap(s), Oral, qDay, X 90 day(s), # 90 cap(s), 3 Refill(s), [facility]: [facility] #[id number], 183.5, cm, 08/28/22 9:38:00 EDT, Height, kg, [...] qDay, # 90 tab(s), 3 Refill(s), Pharmacy: [facility]/pharmacy #[id number], 182.5, cm, 05/27/24 9:06:00 EDT, Height, kg, 05/27/24 9:06:00 EDT, Dosing Weight Start Date: 05/27/24 Status: Ordered Start: 08-28-2023 atorvastatin 1 0 mg oral tablet Dose : 10 mg = 1 tab(s), Oral, qDay, # 90 tab(s), 3 Refill(s), Pharmacy: [facility] #[id number], 182, cm, 08/28/23 8:57:00 EDT, Height, kg, 08/28/23 8:57:00 EDT, Dosing Weight Start Date: 08/28/23 Status: Ordered Start: 05-29-2023 atorvastatin 1 0 mg oral tablet Dose : 10 mg = 1 tab(s), Oral, qDay, # 90 tab(s), 3 Refill(s), Pharmacy: [facility] #[id number], 182.9, cm, 05/29/23 9:04:00 EDT, Height, kg, 05/29/23 9:04:00 EDT, Dosing Weight Start Date: 05/29/23 Status: Ordered Start: 05-29-2022 atorvastatin 1 0 mg oral tablet Dose : 10 mg = 1 tab(s), Oral, qDay, # 90 tab(s), 3 Refill(s), Pharmacy: [facility] #[id number], 182.5, cm, 05/29/22 10:02:00 EDT, Height, kg, 05/29/22 10:02:00 EDT, Dosing Weight Start Date: 05/29/22 Status: Ordered Start: 03-12-2022 atorvastatin 1 0 mg oral tablet Dose : 10 mg = 1 tab(s), Oral, qDay, # 90 tab(s), 0 Refill(s), Pharmacy: [facility] 182.5, cm, 02/25/22 10:34:00 EDT, Height Start Date: 03/12/22 Status: Ordered Start: 11-27-2020 End: 11-22-2021 atorvastatin 10 mg oral tabl et Dose : 10 mg = 1 tab(s), Oral, qDay, X 90 day(s), # 90 tab(s), 3 Refill(s), 11/22/21 9:19:00 EST, Pharmacy: [facility]-[address] 183.5, cm, 11/26/20 10:04:00 [...] qDay, # 90 tab(s), 3 Refill(s), Pharmacy: [facility]/pharmacy #[id number], HTN (hypertension), 182.5, cm, 05/27/24 9:06:00 EDT, Height, kg, 05/27/24 9:06:00 EDT, Dosing Weight Start Date: 05/27/24 Status: Ordered Start: 08-28-2023 take 1 tablet by edgardo th once daily bisoprolol-hydrochlorothiazide 5 - 6.25 mg oral tablet Dose = 1 tab(s), Oral, qDay, # 90 tab(s), 3 Refill(s), [facility]: [facility] #[id number], HTN (hypertension), 182, cm, 08/28/23 8:57:00 EDT, Height, kg, 08/28/23 8:57:00 EDT, Dosing Weight Start Date: 08/28/23 Status: Ordered Start: 08-28-2022 take 1 tablet by edgardo once daily bisoprolol-hydrochlorothiazide 5 - 6.25 mg oral tablet Dose = 1 tab(s), Oral, qDay, # 90 tab(s), 3 Refill(s), [facility]: [facility] #[id number], HTN (hypertension), 183.5, cm, 08/28/22 9:38:00 EDT, Height, kg, 08/28/22 9:38:00 EDT, Dosing Weight Start Date: 08/28/22 Status: Ordered Start: 05-29-2022 take 1 tablet by edgardo once daily bisoprolol-hydrochlorothiazide 5 - 6.25 mg oral tablet Dose = 1 tab(s), Oral, qDay, # 90 tab(s), 3 Refill(s), Pharmacy: [facility] #[id number], HTN (hypertension), 182.5, cm, 05/29/22 10:02:00 EDT, Height, kg, 05/29/22 10:02:00 EDT, Dosing Weight Start Date: 05/29/22 Status: Ordered Start: 08-13-2021 take 1 tablet by edgardo th once daily bisoprolol-hydrochlorothiazide 5 - 6.25 mg oral tablet Dose = 1 tab(s), Oral, qDay, # 90 tab(s), 3 Refill(s), [facility]: [facility] [facility], HTN (hypertension), 183, cm, 05/27/21 9:34:00 [...] sites, # 2 mL, 11 Refill(s), Pharmacy: [facility]/pharmacy #[id number], 182.5, cm, 05/27/24 9:06:00 EDT, Height, kg, 05/27/24 9:06:00 EDT, Dosing Weight Start Date: 05/27/24 Status: Ordered Start: 02-26-2024 inject 1 dose by sub cutaneous injection every week Trulicity Pen 4.5 mg/0.5 mL subcutaneous solution Dose : 0.5 mL =, Subcutaneous, qWeek, rotate injection sites, # 2 mL, 11 Refill(s), [facility]acy: [facility] #[id number], 182, cm, 02/26/24 9:49:00 EDT, Height, kg, 02/26/24 9:49:00 EDT, Dosing Weight Start Date: 02/26/24 Status: Ordered Start: 08-28-2023 End: 04-24-2024 inject 1 dose by subcutaneous injection every week Trulicity Pen 3 mg/0.5 mL subcutaneous solution Dose : 3 mg =, Subcutaneous, qWeek, # 4 EA, 5 Refill(s), Pharmacy: [facility] #[id number], 182, cm, 08/28/23 8:57:00 EDT, Height, kg, 08/28/23 8:57:00 EDT, Dosing Weight Start Date: 08/28/23 Stop Date: 02/24/24 Status: Ordered Start: 02-27-2023 End: 08-26-2023 inject 1 dose by subcutaneous injection every week Trulicity Pen 3 mg/0.5 mL subcutaneous solution Dose : 3 mg =, Subcutaneous, qWeek, # 4 EA, 5 Refill(s), Pharmacy: [facility] #[id number], 182.9, cm, 02/27/23 9:03:00 EDT, Height Start Date: 02/27/23 Stop Date: 08/26/23 Status: Ordered Start: 05-29-2022 inject 0.5 mg by sub cutaneous injection once daily Trulicity Pen 1.5 mg/0.5 mL subcutaneous solution Dose : 1.5 mg =, Subcutaneous, qWeek, inject 1 AND 1/2 milligram subcutaneously every week dispense 90 day supply, # 12 EA, 3 Refill(s), Pharmacy: [facility] #[id number], 182.5, cm, 05/29/22 10:02:00 EDT, Height, kg, 05/29/22 10:02:00 EDT, Dosing Weight Start Date: 05/29/22 Status: Ordered Start: 04-10-2022 inject 0.5 mg by sub cutaneous injection once daily Trulicity Pen 1.5 mg/0.5 mL subcutaneous solution Dose : 1.5 mg =, Subcutaneous, qWeek, inject 1 AND 1/2 milligram subcutaneously every week dispense 90 day supply, # 12 EA, 0 Refill(s), Pharmacy: [facility] 182.5, cm, 02/25/22 10:34:00 [...] 3.4 mL, 5 Refill(s), [facility]: [facility] #[id number], Diabetes Diabetes mellitus type 2, 182, cm, [...] qDay, # 90 tab(s), 3 Refill(s), Pharmacy: [facility]/pharmacy #[id number], 182.5, cm, 05/27/24 9:06:00 EDT, Height, kg, 05/27/24 9:06:00 EDT, Dosing Weight Start Date: 05/27/24 Status: Ordered Start: 08-28-2023 finasteride 5 mg oral tablet Dose : 5 mg = 1 tab(s), Oral, qDay, # 90 tab(s), 3 Refill(s), Pharmacy: [facility] #[id number], 182, cm, 08/28/23 8:57:00 EDT, Height, kg, 08/28/23 8:57:00 EDT, Dosing Weight Start Date: 08/28/23 Status: Ordered Start: 08-28-2022 finasteride 5 mg oral tablet Dose : 5 mg = 1 tab(s), Oral, qDay, # 90 tab(s), 3 Refill(s), [facility]: [facility] #[id number], 183.5, cm, 08/28/22 9:38:00 EDT, Height, kg, 08/28/22 9:38:00 EDT, Dosing Weight Start Date: 08/28/22 Status: Ordered Start: 02-25-2022 finasteride 5 mg oral tablet Dose : 5 mg = 1 tab(s), Oral, qDay, # 90 tab(s), 3 Refill(s), [facility] 182.5, cm, 02/25/22 10:34:00 EDT, Height, kg, 02/25/22 10:34:00 EDT, Dosing Weight Start Date: 02/25/22 Status: Ordered Start: 11-27-2021 finasteride 5 mg oral tablet Dose : 5 mg = 1 tab(s), Oral, qDay, # 90 tab(s), 0 Refill(s), Pharmacy: [facility] 183.5, cm, 11/26/21 [...] qDay, # 90 tab(s), 3 Refill(s), Pharmacy: [facility]/pharmacy #[id number], 182.5, cm, 05/27/24 9:06:00 EDT, Height, kg, 05/27/24 9:06:00 EDT, Dosing Weight Start Date: 05/27/24 Status: Ordered Start: 08-28-2023 levothyroxine 175 mcg (0.175 mg) oral tablet Dose : 175 mcg = 1 tab(s), Oral, qDay, # 90 tab(s), 3 Refill(s), [facility] #[id number], 182, cm, 08/28/23 8:57:00 EDT, Height, kg, 08/28/23 8:57:00 EDT, Dosing Weight Start Date: 08/28/23 Status: Ordered Start: 03-11-2023 levothyroxine 175 mcg (0.175 mg) oral tablet Dose : 175 mcg = 1 tab(s), Oral, qDay, # 90 tab(s), 3 Refill(s), Pharmacy: [facility] #[id number], 182.9, cm, 02/28/23 9:47:00 EDT, Height, kg, 02/28/23 9:47:00 EDT, Dosing Weight Start Date: 03/11/23 Status: Ordered Start: 05-29-2022 End: 05-24-2023 levothyroxine 200 mcg (0.2 m g) oral tablet Dose : 200 mcg = 1 tab(s), Oral, qDay, # 90 tab(s), 3 Refill(s), Pharmacy: [facility] #[id number], Hypothyroidism, 182.5, cm, 05/29/22 10:02:00 EDT, Height, kg, 05/29/22 10:02:00 EDT, Dosing Weight Start Date: 05/29/22 Stop Date: 05/24/23 Status: Ordered Start: 11-26-2021 levothyroxine 50 mcg (0.05 mg) oral tablet Dose : 50 mcg = 1 tab(s), Oral, qDay, # 90 tab(s), 3 Refill(s), [facility] 183.5, cm, 11/26/21 10:38:00 EST, Height, kg, 11/26/21 10:38:00 EST, Dosing Weight Start Date: 11/26/21 Status: Ordered Start: 08-27-2021 levothyroxine 25 mcg (0.025 mg) oral tablet Dose : 25 mcg = 1 tab(s), Oral, qDayAC, # 90 tab(s), 3 Refill(s), [facility] Diabetes mellitus type 2 HTN (hypertension), 184.6, cm, 08/27/21 10:48:00 EDT, Height, kg, 08/27/21 10:48:00 EDT, Dosing Weight Start Date: 08/27/21 Status: Ordered Start: 05-27-2021 End: 05-22-2022 levothyroxine 200 mcg (0.2 m g) oral tablet Dose : 200 mcg = 1 tab(s), Oral, qDay, # 90 tab(s), 3 Refill(s), [facility]: [facility] [facility], [facility], 183, cm, 05/27/21 9:34:00 EDT, Height, [...] daily, # 360 tab(s), 3 Refill(s), Pharmacy: [facility]/pharmacy #[id number], 182.5, cm, 05/27/24 9:06:00 EDT, Height, kg, 05/27/24 9:06:00 EDT, Dosing Weight Start Date: 05/27/24 Stop Date: 05/22/25 Status: Ordered Start: 08-28-2022 End: 08-23-2023 MetFORMIN (Eqv-Glucophage XR ) 500 mg oral tablet, EXTENDED RELEASE Dose : 2,000 mg = 4 tab(s), Oral, qDay, 360 EA, take 4 tablets by mouth once daily, # 360 tab(s), 3 Refill(s), [facility]: [facility] #[id number], 183.5, cm, 08/28/22 9:38:00 EDT, Height Start [...] qDay, # 90 cap(s), 3 Refill(s), Pharmacy: [facility]/pharmacy #[id number], 182.5, cm, 05/27/24 9:06:00 EDT, Height, kg, 05/27/24 9:06:00 EDT, Dosing Weight Start Date: 05/27/24 Status: Ordered Start: 08-28-2023 tamsulosin 0.4 mg oral capsule Dose : 0.4 mg = 1 cap(s), Oral, qDay, # 90 cap(s), 3 Refill(s), [facility]: [facility] #[id number], 182, cm, 08/28/23 8:57:00 EDT, Height, kg, 08/28/23 8:57:00 EDT, Dosing Weight Start Date: 08/28/23 Status: Ordered Start: 08-28-2022 tamsulosin 0.4 mg oral capsule Dose : 0.4 mg = 1 cap(s), Oral, qDay, # 90 cap(s), 3 Refill(s), [facility]: [facility] #[id number], 183.5, cm, 08/28/22 9:38:00 EDT, Height, kg, 08/28/22 9:38:00 EDT, Dosing Weight Start Date: 08/28/22 Status: Ordered Start: 11-26-2021 tamsulosin 0.4 mg oral capsule Dose : 0.4 mg = 1 cap(s), Oral, qDay, # 90 cap(s), 3 Refill(s), Pharmacy: [facility] 183.5, cm, 11/26/21 10:38:00 EST, Height, kg, 11/26/21 10:38:00 EST, Dosing Weight Start Date: 11/26/21 Status: Ordered Start: 08-13-2021 tamsulosin 0.4 mg oral capsule Dose : 0.4 mg = 1 cap(s), Oral, qDay, # 90 cap(s), 3 Refill(s), Pharmacy: [facility] 183, cm, 05/27/21 9:34:00 [...] URon 04-21-2025 MALB:CREAT 47.1 mg/g CRE Normal [facility] Comment on above: Result Comment: AMENDED REPORT 04/21/25821 MALB:CREAT previously reported as: 471.3 mg/g CRE Performed By: #### L 502.0250, L501.9520, L500.4100, L506.0400, L500.4050 #### [facility] [address] [place], [place] [address]s[place], [address] Anion gap in Serum or Plasma Ordered By: Naz Horton on 03-03-2025 Anion gap [Moles/Vol] 13 mmol/L 03-16 [facility] BUN/creatinine ratioOrdered By: Naz Horton on 03-03-2025 Urea nitrogen/Creatinine [Mass ratio] 14.8 mg/mg 08-21 [facility] Bilirubin, totalOrdered By: Naz Horton on 03-03-2025 Bilirubin [Mass/Vol] 0.47 mg/dL 0.00-1.30 [facility] Calculated very low density lipoprotein (VLDL) cholesterol measurementOrdered By: Naz Horton on 03-03-2025 Calculated very low density lipoprotein (VLDL) cholesterol measurement 60 mg/dL High [facility] Carbon dioxide, total [Moles /volume] in Central venous bloodOrdered By: Naz Horton on 03-03-2025 CO2 [Moles/Vol] 24.3 mmol/L 21.0-32.0 [facility] Chloride assayOrdered By: Scott Horton on 03-03-2025 Chloride [Moles/Vol] 99 mmol/L 98-108 [facility] Comprehensive Metabolic Prof ilon 03-03-2025 Albumin [Mass/Vol] 4.2 g/dL Normal 3.4-4.8 [facility] Comment on above: Performed By: #### L 502.0250, L501.9520, L500.4100, L506.0400, L500.4050 #### [facility] [address] [place], [address] Albumin/Globulin [Mass ratio] 1.5 {ratio} Normal 0.9-2.4 [facility] Comment on above: Performed By: #### L 502.0250, L501.9520, L500.4100, L506.0400, L500.4050 #### [facility] [address] [place], [address] ALK PHOS 66 U/L Normal 40-129 [facility] Comment on above: Performed By: #### L 502.0250, L501.9520, L500.4100, L506.0400, L500.4050 #### [facility] [address] [place], [address] ALT [Catalytic activity/Vol] 49 U/L High <=46 [facility] Comment on above: Performed By: #### L 502.0250, L501.9520, L500.4100, L506.0400, L500.4050 #### [facility] [address] [place], [address] AST [Catalytic activity/Vol] 38 U/L Normal <=37 [facility] Comment on above: Performed By: #### L 502.0250, L501.9520, L500.4100, L506.0400, L500.4050 #### [facility] [address] [place], [address] Bilirubin [Mass/Vol] 0.47 mg/dL Normal 0.00-1.30 [facility] Comment on above: Performed By: #### L 502.0250, L501.9520, L500.4100, L506.0400, L500.4050 #### [facility] [address] [place], [address] BUN/CRE 14.8 RATIO Normal 10-20 [facility] Comment on above: Performed By: #### L 502.0250, L501.9520, L500.4100, L506.0400, L500.4050 #### [facility] [address] [place], [address] Calcium [Mass/Vol] 9.2 mg/dL Normal 7.6-11.0 [facility] Comment on above: Performed By: #### L 502.0250, L501.9520, L500.4100, L506.0400, L500.4050 #### [facility] [address] [place], [address] Chloride [Moles/Vol] 99 mmol/L Normal 98-108 [facility] Comment on above: Performed By: #### L 502.0250, L501.9520, L500.4100, L506.0400, L500.4050 #### [facility] [address] [place], [address] CO2 [Moles/Vol] 24.3 mmol/L Normal 21.0-32.0 [facility] Comment on above: Performed By: #### L 502.0250, L501.9520, L500.4100, L506.0400, L500.4050 #### [facility] [address] [place], [address] Creatinine [Mass/Vol] 0.92 mg/dL Normal 0.70-1.20 [facility] Comment on above: Performed By: #### L 502.0250, L501.9520, L500.4100, L506.0400, L500.4050 #### [facility] [address] [place], [address] GAP 13 Normal 5-15 [facility] Comment on above: Performed By: #### L 502.0250, L501.9520, L500.4100, L506.0400, L500.4050 #### [facility] [address] [place], [address] GFR/1.73 sq M.predicted among non-blacks MDRD (S/P/Bld) [Vol rate/Area] 89 mL/min/{1.73_m2} Normal >60 [facility] Comment on above: Result Comment: mL/m in/1.73m2 CKD-EPI Creatinine Equation (2020) Performed By: #### L 502.0250, L501.9520, L500.4100, L506.0400, L500.4050 #### [facility] [address] [place], [address] Globulin (S) [Mass/Vol] 2.9 g/dL Normal 2.2-4.2 [facility] Comment on above: Performed By: #### L 502.0250, L501.9520, L500.4100, L506.0400, L500.4050 #### [facility] [address] [place], [address] Glucose [Mass/Vol] 210 mg/dL High 70-99 [facility] Comment on above: Performed By: #### L 502.0250, L501.9520, L500.4100, L506.0400, L500.4050 #### [facility] [address] [place], [address] Potassium [Moles/Vol] 4.2 mmol/L Normal 3.3-5.1 [facility] Comment on above: Performed By: #### L 502.0250, L501.9520, L500.4100, L506.0400, L500.4050 #### [facility] [address] [place], [address] Sodium [Moles/Vol] 136 mmol/L Normal 133-145 [facility] Comment on above: Performed By: #### L 502.0250, L501.9520, L500.4100, L506.0400, L500.4050 #### [facility] [address] [place], [address] T PROT 7.1 g/dL Normal 5.9-8.4 [facility] Comment on above: Performed By: #### L 502.0250, L501.9520, L500.4100, L506.0400, L500.4050 #### [facility] [address] [place], [address] Urea nitrogen [Mass/Vol] 14 mg/dL Normal 4-19 [facility] Comment on above: Performed By: #### L 502.0250, L501.9520, L500.4100, L506.0400, L500.4050 #### [facility] [address] [place], [address] Glomerular filtration rate ( GFR) estimation/1.73 sq m using serum, plasma, or whole bOrdered By: Naz Horton on 03-03-2025 GFR/1.73 sq M.predicted among non-blacks MDRD (S/P/Bld) [Vol rate/Area] 89 mL/min/{1.73_m2} >60 [facility] Comment on above: mL/min/1.73m2 CKD-EP I Creatinine Equation (2020) LDL calc ser/plasOrdered By: Naz Horton on 03-03-2025 Cholesterol in LDL [Mass/Vol] 72 mg/dL [facility] Comment on above: Ulqqbouqmf=580-785 m g/dL & Higher Xlio=191 mg/dL or greater Laboratory - Chemistry and C hemistry - challengeOrdered By: Naz Horton on 03-03-2025 AST [Catalytic activity/Vol] 38 U/L <38 [facility] Lipid Profileon 03-03-2025 CHOL:HDL 4.52 Normal [facility] Comment on above: Performed By: #### L 502.0250, L501.9520, L500.4100, L506.0400, L500.4050 #### [facility] [address] [place], [address] Cholesterol [Mass/Vol] 170 mg/dL Normal <=200 [facility] Comment on above: Result Comment: Chol esterol level, Desirable <200 mg/dL Borderline high cholesterol 200-239 mg/dL High cholesterol >=240 mg/dL Recommendations of the NCEP Adult Treatment Panel for the following risk-cutoff thresholds for the [place] population. Performed By: #### L 502.0250, L501.9520, L500.4100, L506.0400, L500.4050 #### [facility] [address] [place], [address] Cholesterol in HDL [Mass/Vol] 38 mg/dL Low [facility] Comment on above: Result Comment: [place] onal Cholesterol Education Program (NCEP) guidelines: <40 mg/dL: Low HDL-cholesterol (major risk factor for CHD) >= 60 mg/dL: High HDL-cholesterol (negative risk factor for CHD) HDL-cholesterol is affected by a number of factors, e.g. smoking, exercise, hormones, sex and age. Performed By: #### L 502.0250, L501.9520, L500.4100, L506.0400, L500.4050 #### [facility] [address] [place], [address] Cholesterol in LDL [Mass/Vol] 72 mg/dL Normal [facility] Comment on above: Result Comment: Bord fftfkj=431-445 mg/dL Higher Ckax=783 mg/dL or greater Performed By: #### L 502.0250, L501.9520, L500.4100, L506.0400, L500.4050 #### [facility] [address] [place], [address] Cholesterol in VLDL [Mass/Vol] 60 mg/dL High 5-40 [facility] Comment on above: Performed By: #### L 502.0250, L501.9520, L500.4100, L506.0400, L500.4050 #### [facility] [address] [place], [address] Triglyceride [Mass/Vol] 302 mg/dL High [facility] Comment on above: Result Comment: The drugs N-Acetylcysteine and Metamizole may falsely depress this assay. Normal range: <150 mg/dL Borderline High: 150-199 mg/dL High: 200-499 mg/dL Very High: >500 mg/dL Performed By: #### L 502.0250, L501.9520, L500.4100, L506.0400, L500.4050 #### [facility] [address] [place], [address] Potassium measurement (mass/ volume)Ordered By: Naz Horton on 03-03-2025 Potassium (Unsp spec) [Mass/Vol] 4.2 mmol/L 3.3-5.1 [facility] Random urine creatinine rebecca urement (mass/volume)Ordered By: Naz Horton on 03-03-2025 Creatinine Unsp time (U) [Mass/Vol] 34.80 mg/dL Low 39.00-259. 00 [facility] Screening total cholesterol/ high density lipoprotein (HDL) cholesterol ratioOrdered By: Naz Horton on 03-03-2025 Cholesterol.total/C holesterol in HDL [Mass ratio] 4.52 {ratio} [facility] Serum creatinine measurement (mass/volume)Ordered By: Naz Horton on 03-03-2025 Creatinine [Mass/Vol] 0.92 mg/dL 0.70-1.20 [facility] Serum globulin measurementOr dered By: Naz Horton on 03-03-2025 Globulin (S) [Mass/Vol] 2.9 g/dL 2.2-4.2 [facility] Serum glucose measurement (m ass/volume)Ordered By: Naz Horton on 03-03-2025 Glucose [Mass/Vol] 210 mg/dL High 70-99 [facility] Serum or plasma alanine leroy otransferase (ALT) measurementOrdered By: Naz Horton on 03-03-2025 ALT [Catalytic activity/Vol] 49 U/L High <47 [facility] Serum or plasma albumin rebecca urement (mass/volume)Ordered By: Naz Horton on 03-03-2025 Albumin [Mass/Vol] 4.2 g/dL 3.4-4.8 [facility] [facility] Serum or plasma albumin/glob ulin mass ratioOrdered By: Naz Horton on 03-03-2025 Albumin/Globulin [Mass ratio] 1.5 {ratio} 0.9-2.4 [facility] Serum or plasma alkaline gil sphatase measurementOrdered By: Naz Horton on 03-03-2025 ALP [Catalytic activity/Vol] 66 U/L 40-129 [facility] Serum or plasma calcium rebecca urement (mass/volume)Ordered By: Naz Horton on 03-03-2025 Calcium [Mass/Vol] 9.2 mg/dL 7.6-11.0 [facility] Serum or plasma cholesterol in HDL measurement (mass/volume)Ordered By: Naz Horton on 03-03-2025 Cholesterol in HDL [Mass/Vol] 38 mg/dL Low >40 [facility] Comment on above: National Cholesterol Education Program (NCEP) guidelines:<40 mg/dL: Low HDL-cholesterol (major risk factor for CHD)>= 60 mg/dL: High HDL-cholesterol (negative risk factor for CHD)HDL-cholesterol is affected by a number of factors, e.g. smoking, exercise, hormones, sex and age. Serum or plasma cholesterol measurement (mass/volume)Ordered By: Naz Horton on 03-03-2025 Cholesterol [Mass/Vol] 170 mg/dL <201 [facility] Comment on above: Cholesterol level, D esirable <200 mg/dLBorderline high cholesterol 200-239 mg/dLHigh cholesterol >=240 mg/dLRecommendations of the NCEP Adult Treatment Panel for the following risk-cutoff thresholds for the [place] population. Serum or plasma urea nitroge n measurement (mass/volume)Ordered By: Naz Horton on 03-03-2025 Urea nitrogen [Mass/Vol] 14 mg/dL 4-19 [facility] Sodium levelOrdered By: Raissa oHrton on 03-03-2025 Sodium [Moles/Vol] 136 mmol/L 133-145 [facility] T4 Free Directon 03-03-2025 T4 FREE DIRECT 1.30 ng/dL Normal 0.76-1.46 [facility] Comment on above: Performed By: #### L 502.0250, L501.9520, L500.4100, L506.0400, L500.4050 #### [facility] [address] [place], [address] T4 freeOrdered By: Naz jfefers on 03-03-2025 Free T4 [Mass/Vol] 1.30 ng/dL 0.76-1.46 [facility] TSH DL <= 0.005 mIU/L QnOrde red By: Naz Horton on 03-03-2025 TSH Qn 2.800 uIU/mL 0.300-4.20 0 [facility] Thyroid Stim Hormone (TSH)on 03-03-2025 TSH 2.800 uIU/mL Normal 0.300-4.20 0 [facility] Comment on above: Performed By: #### L 502.0250, L501.9520, L500.4100, L506.0400, L500.4050 #### [facility] [address] [place], [address] Total proteinOrdered By: Matias Horton on 03-03-2025 Protein [Mass/Vol] 7.1 g/dL 5.9-8.4 [facility] Triglycerides measurementOrd ered By: Naz Horton on 03-03-2025 Triglyceride [Mass/Vol] 302 mg/dL High <199 [facility] Comment on above: The drugs N-Acetylcy steine and Metamizole may falsely depress this assay. Normal range: <150 mg/dLBorderline High: 150-199 mg/dLHigh: 200-499 mg/dLVery High: >500 mg/dL Urine albumin measurement [facility] detection limit of 20 mg/L or less (mass/volume)Ordered By: Naz Horton on 03-03-2025 Albumin DL <= 20 mg/L (U) [Mass/Vol] 16.4 mg/L NO RANGE EST. [facility] PSA,Total- Diagnosticon 12- PSA, DIAGNOSTIC 1.56 ng/mL Normal 0.0-4.0 [facility] Comment on above: Result Comment: This test was performed using the TPSA assay method for the addwish chemistry system. Values obtained with different assay methods cannot be used interchangably. When changing PSA assays in the course of monitoring a patient, additional sequential testing should be carried out to confirm baseline values. Performed By: #### L 501.9940 #### [facility] [address] [place], [address] .GFRon 08-17-2024 GFR 94 ml/min/1.73sqm Normal [facility] Comment on above: Result Comment: GFR Population [...] LIPID, A1C, TSH, FT3, GFR, CMP #### [facility] [address] [place], [place] [address] GFR Non- 77 ml/min/1.73sqm Normal [facility] Comment on above: Result Comment: GFR Population [...] LIPID, A1C, TSH, FT3, GFR, CMP #### [address] [address] A1Con 08-17-2024 Glucose [Mass/Vol] 160 mg/dL Normal [facility] Comment on above: Result Comment: Marcy mated Average Glucose calculated by equation ((28.7xA1C)-46.7) Estimated average glucose (eAG) is a calculated value from Hemoglobin A1C and is patient support representative of the average blood glucose level in the last 2-3 month period. Normal range: less than 114 mg/dL Performed By: #### F T4, LIPID, A1C, TSH, FT3, GFR, CMP #### [address] [address] HbA1c (Bld) [Mass fraction] 7.2 % High 4.3-6.4 [facility] Comment on above: Performed By: #### F T4, LIPID, A1C, TSH, FT3, GFR, CMP #### [address] [address] CMPon 08-17-2024 Albumin Level 3.9 G/dL Normal 3.4-4.8 [facility] Comment on above: Performed By: #### F T4, LIPID, A1C, TSH, FT3, GFR, CMP #### [address] [address] Albumin/Globulin [Mass ratio] 1.3 {ratio} Normal 1.1-2.5 [facility] Comment on above: Performed By: #### F T4, LIPID, A1C, TSH, FT3, GFR, CMP #### [address] [address] ALP [Catalytic activity/Vol] 68 U/L Normal 40-135 [facility] Comment on above: Performed By: #### F T4, LIPID, A1C, TSH, FT3, GFR, CMP #### [address] [address] ALT [Catalytic activity/Vol] 40 U/L Normal 16-63 [facility] Comment on above: Performed By: #### F T4, LIPID, A1C, TSH, FT3, GFR, CMP #### [address] [address] AST [Catalytic activity/Vol] 19 U/L Normal 10-40 [facility] Comment on above: Performed By: #### F T4, LIPID, A1C, TSH, FT3, GFR, CMP #### [address] [address] Bili Total 0.6 mg/dL Normal 0.2-1.0 [facility] Comment on above: Result Comment: Use of this assay is not recommended for patients undergoing treatment with eltrombopag due to the potential for falsely elevated results. Performed By: #### F T4, LIPID, A1C, TSH, FT3, GFR, CMP #### [address] [address] BUN/Creatinine Ratio 11 ratio Normal 7-27 [facility] Comment on above: Performed By: #### F T4, LIPID, A1C, TSH, FT3, GFR, CMP #### [address] [address] Calcium [Mass/Vol] 9.3 mg/dL Normal 8.4-10.2 [facility] Comment on above: Performed By: #### F T4, LIPID, A1C, TSH, FT3, GFR, CMP #### [address] [address] Chloride [Moles/Vol] 101 mmol/L Normal 98-107 [facility] Comment on above: Performed By: #### F T4, LIPID, A1C, TSH, FT3, GFR, CMP #### [place] [address] CO2 [Moles/Vol] 30 mmol/L Normal 23-31 [facility] Comment on above: Performed By: #### F T4, LIPID, A1C, TSH, FT3, GFR, CMP #### [place] [address] Creatinine [Mass/Vol] 0.96 mg/dL Normal 0.70-1.30 [facility] Comment on above: Result Comment: Test ing performed on Gravity Jack Dimension EXL analyzer using a modified kinetic Dick technique. Performed By: #### F T4, LIPID, A1C, TSH, FT3, GFR, CMP #### [place] [address] Electrolyte Balance 6.0 mEq/L Normal 4.0-15.0 [facility] Comment on above: Performed By: #### F T4, LIPID, A1C, TSH, FT3, GFR, CMP #### [place] [address] Globulin 2.9 G/dL Normal [facility] Comment on above: Performed By: #### F T4, LIPID, A1C, TSH, FT3, GFR, CMP #### [place] [address] Glucose [Mass/Vol] 153 mg/dL High 83-110 [facility] Comment on above: Performed By: #### F T4, LIPID, A1C, TSH, FT3, GFR, CMP #### [place] [address] Potassium [Moles/Vol] 4.3 mmol/L Normal 3.5-5.1 [facility] Comment on above: Performed By: #### F T4, LIPID, A1C, TSH, FT3, GFR, CMP #### [address] [address] Sodium [Moles/Vol] 137 mmol/L Normal 136-145 [facility] Comment on above: Performed By: #### F T4, LIPID, A1C, TSH, FT3, GFR, CMP #### [address] [address] Total Protein 6.8 G/dL Normal 6.4-8.2 [facility] Comment on above: Performed By: #### F T4, LIPID, A1C, TSH, FT3, GFR, CMP #### [address] [address] Urea nitrogen [Mass/Vol] 11 mg/dL Normal 7-18 [facility] Comment on above: Performed By: #### F T4, LIPID, A1C, TSH, FT3, GFR, CMP #### [address] [address] FT3on 08-17-2024 Free T3 [Mass/Vol] 2.24 pg/mL Low 2.30-4.00 [facility] Comment on above: Performed By: #### F T4, LIPID, A1C, TSH, FT3, GFR, CMP #### [address] [address] FT4on 08-17-2024 Free T4 [Mass/Vol] 1.06 ng/dL Normal 0.76-1.46 [facility] Comment on above: Performed By: #### F T4, LIPID, A1C, TSH, FT3, GFR, CMP #### [address] [address] LABORATORYOrdered By: SYSTEM SYSTEM on 08-17-2024 Albumin [...] calculated value from Hemoglobin A1C and is patient support representative of the average blood glucose level [...] 08-17-2024 Cholesterol [Mass/Vol] 153 mg/dL Normal 0-200 [facility] Comment on above: Result Comment: Chol esterol Reference Interval: Less than 200 Desirable 200-239 Borderline high risk 240 and above High risk Performed By: #### F T4, LIPID, A1C, TSH, FT3, GFR, CMP #### [address] [address] Cholesterol in HDL [Mass/Vol] 49 mg/dL Normal 40-60 [facility] Comment on above: Performed By: #### F T4, LIPID, A1C, TSH, FT3, GFR, CMP #### [address] [address] Cholesterol in LDL [Mass/Vol] 61 mg/dL Normal 0-130 [facility] Comment on above: Performed By: #### F T4, LIPID, A1C, TSH, FT3, GFR, CMP #### [address] [address] Triglyceride [Mass/Vol] 213 mg/dL High 0-150 [facility] Comment on above: Result Comment: Trig lyceride Reference Interval: Less than 150 Normal 150-199 Borderline high risk 200-499 High risk 500 or higher Very high risk Performed By: #### F T4, LIPID, A1C, TSH, FT3, GFR, CMP #### [address] [address] TSHon 08-17-2024 TSH Qn 1.69 m[IU]/L Normal 0.36-3.74 [facility] Comment on above: Performed By: #### F T4, LIPID, A1C, TSH, FT3, GFR, CMP #### [address] [address] .GFRon 05-18-2024 GFR Non- 68 ml/min/1.73sqm Normal [facility] ([place]) Comment on above: Result Comment: GFR Population [...] FR, FT4, CMP, A1C, TSH, LIPID #### [address] [address] GFR 83 ml/min/1.73sqm Normal [facility] ([place]) Comment on above: Result Comment: GFR Population [...] FR, FT4, CMP, A1C, TSH, LIPID #### [address] [address] A1Con 05-18-2024 HbA1c (Bld) [Mass fraction] 11.5 % High 4.3-6.4 [facility] ([place]) Comment on above: Performed By: #### G FR, FT4, CMP, A1C, TSH, LIPID #### [address] [address] CMPon 05-18-2024 Albumin Level 3.9 G/dL Normal 3.4-4.8 [facility] ([place]) Comment on above: Performed By: #### G FR, FT4, CMP, A1C, TSH, LIPID #### [address] [address] Albumin/Globulin [Mass ratio] 1.3 {ratio} Normal 1.1-2.5 [facility] ([place]) Comment on above: Performed By: #### G FR, FT4, CMP, A1C, TSH, LIPID #### [address] [address] ALP [Catalytic activity/Vol] 81 U/L Normal 40-135 [facility] ([place] Comment on above: Performed By: #### G FR, FT4, CMP, A1C, TSH, LIPID #### [address] [address] ALT [Catalytic activity/Vol] 39 U/L Normal 16-63 [facility] ([place] Comment on above: Performed By: #### G FR, FT4, CMP, A1C, TSH, LIPID #### [address] [address] AST [Catalytic activity/Vol] 22 U/L Normal 10-40 [facility] ([place]) Comment on above: Performed By: #### G FR, FT4, CMP, A1C, TSH, LIPID #### [address] [address] Bili Total 0.7 mg/dL Normal 0.2-1.0 [facility] ([place]) Comment on above: Result Comment: Use of this assay is not recommended for patients undergoing treatment with eltrombopag due to the potential for falsely elevated results. Performed By: #### G FR, FT4, CMP, A1C, TSH, LIPID #### [address] [address] BUN/Creatinine Ratio 16 ratio Normal 7-27 [facility] ([place] Comment on above: Performed By: #### G FR, FT4, CMP, A1C, TSH, LIPID #### [address] [address] Calcium [Mass/Vol] 9.6 mg/dL Normal 8.4-10.2 [facility] ([place] Comment on above: Performed By: #### G FR, FT4, CMP, A1C, TSH, LIPID #### [address] [address] Chloride [Moles/Vol] 97 mmol/L Low 98-107 [facility] ([place] Comment on above: Performed By: #### G FR, FT4, CMP, A1C, TSH, LIPID #### [address] [address] CO2 [Moles/Vol] 26 mmol/L Normal 23-31 [facility] ([place] Comment on above: Performed By: #### G FR, FT4, CMP, A1C, TSH, LIPID #### [address] [address] Creatinine [Mass/Vol] 1.07 mg/dL Normal 0.70-1.30 [facility] ([place]) Comment on above: Performed By: #### G FR, FT4, CMP, A1C, TSH, LIPID #### [address] [address] Electrolyte Balance 11.0 mEq/L Normal 4.0-15.0 [facility] ([place]) Comment on above: Performed By: #### G FR, FT4, CMP, A1C, TSH, LIPID #### [address] [address] Globulin 3.0 G/dL Normal [facility] ([place] Comment on above: Performed By: #### G FR, FT4, CMP, A1C, TSH, LIPID #### [address] [address] Glucose [Mass/Vol] 214 mg/dL High 83-110 [facility] ([place] Comment on above: Performed By: #### G FR, FT4, CMP, A1C, TSH, LIPID #### [place] [id number] [place], [place] [address] Potassium [Moles/Vol] 4.5 mmol/L Normal 3.5-5.1 [facility] ([place]) Comment on above: Performed By: #### G FR, FT4, CMP, A1C, TSH, LIPID #### [place] [address] [place], [place] [address] Sodium [Moles/Vol] 134 mmol/L Low 136-145 [facility] ([place] Comment on above: Performed By: #### G FR, FT4, CMP, A1C, TSH, LIPID #### [place] [phone] [place], [place] [address] Total Protein 6.9 G/dL Normal 6.4-8.2 [facility] ([place]) Comment on above: Performed By: #### G FR, FT4, CMP, A1C, TSH, LIPID #### [address] [address] Urea nitrogen [Mass/Vol] 17 mg/dL Normal 7-18 [facility] ([place] Comment on above: Performed By: #### G FR, FT4, CMP, A1C, TSH, LIPID #### [address] [address] LABORATORYOrdered By: SYSTEM SYSTEM on 05-18-2024 Albumin [...] 05-18-2024 Cholesterol [Mass/Vol] 164 mg/dL Normal 0-200 [facility] ([place]) Comment on above: Result Comment: Chol esterol Reference Interval: Less than 200 Desirable 200-239 Borderline high risk 240 and above High risk Performed By: #### G FR, FT4, CMP, A1C, TSH, LIPID #### [address] [address] Cholesterol in HDL [Mass/Vol] 46 mg/dL Normal 40-60 [facility] ([place] Comment on above: Performed By: #### G FR, FT4, CMP, A1C, TSH, LIPID #### [address] [address] Cholesterol in LDL [Mass/Vol] 69 mg/dL Normal 0-130 [facility] ([place] Comment on above: Performed By: #### G FR, FT4, CMP, A1C, TSH, LIPID #### [address] [address] Triglyceride [Mass/Vol] 246 mg/dL High 0-150 [facility] ([place]) Comment on above: Result Comment: Trig lyceride Reference Interval: Less than 150 Normal 150-199 Borderline high risk 200-499 High risk 500 or higher Very high risk Performed By: #### G FR, FT4, CMP, A1C, TSH, LIPID #### [address] [address] TSHon 05-18-2024 TSH Qn 4.39 m[IU]/L High 0.36-3.74 [facility] ([place]) Comment on above: Performed By: #### G FR, FT4, CMP, A1C, TSH, LIPID #### [address] [address] MALBRon 02-26-2024 U Creatinine 93.5 mg/dL Normal 39.0-259.0 [facility] ([place]) Comment on above: Performed By: #### G FR, FT4, CMP, A1C, TSH, LIPID #### [address] [address] U Microalb 2259 mcg/dL Normal [facility] ([place] Comment on above: Performed By: #### G FR, FT4, CMP, A1C, TSH, LIPID #### [address] [address] U Ratio Alb/Cre 24 mcg/mg Normal 0-30 [facility] ([place] Comment on above: Performed By: #### G FR, FT4, CMP, A1C, TSH, LIPID #### [facility] [address] [address] .GFRon 02-17-2024 GFR Non- 73 ml/min/1.73sqm Normal [facility] ([place] Comment on above: Result Comment: GFR Population [...] FT4, CMP, A1C, TSH, LIPID #### [facility] [address] [address] GFR 88 ml/min/1.73sqm Normal [facility] ([place] Comment on above: Result Comment: GFR Population [...] FR, FT4, CMP, A1C, TSH, LIPID #### [address] [address] A1Con 02-17-2024 HbA1c (Bld) [Mass fraction] 9.6 % High 4.3-6.4 [facility] ([place]) Comment on above: Performed By: #### G FR, FT4, CMP, A1C, TSH, LIPID #### [address] [address] CMPon 02-17-2024 Albumin Level 4.0 G/dL Normal 3.4-4.8 [facility] ([place] Comment on above: Performed By: #### G FR, FT4, CMP, A1C, TSH, LIPID #### [address] [address] Albumin/Globulin [Mass ratio] 1.4 {ratio} Normal 1.1-2.5 [facility] ([place]) Comment on above: Performed By: #### G FR, FT4, CMP, A1C, TSH, LIPID #### [address] [address] ALP [Catalytic activity/Vol] 70 U/L Normal 40-135 [facility] ([place] Comment on above: Performed By: #### G FR, FT4, CMP, A1C, TSH, LIPID #### [address] [address] ALT [Catalytic activity/Vol] 51 U/L Normal 16-63 [facility] ([place] Comment on above: Performed By: #### G FR, FT4, CMP, A1C, TSH, LIPID #### [address] [address] AST [Catalytic activity/Vol] 22 U/L Normal 10-40 [facility] ([place] Comment on above: Performed By: #### G FR, FT4, CMP, A1C, TSH, LIPID #### [address] [address] Bili Total 0.6 mg/dL Normal 0.2-1.0 [facility] ([place]) Comment on above: Result Comment: Use of this assay is not recommended for patients undergoing treatment with eltrombopag due to the potential for falsely elevated results. Performed By: #### G FR, FT4, CMP, A1C, TSH, LIPID #### [address] [address] BUN/Creatinine Ratio 17 ratio Normal 7-27 [facility] ([place] Comment on above: Performed By: #### G FR, FT4, CMP, A1C, TSH, LIPID #### [address] [address] Calcium [Mass/Vol] 9.0 mg/dL Normal 8.4-10.2 [facility] ([place] Comment on above: Performed By: #### G FR, FT4, CMP, A1C, TSH, LIPID #### [address] [address] Chloride [Moles/Vol] 100 mmol/L Normal 98-107 [facility] ([place] Comment on above: Performed By: #### G FR, FT4, CMP, A1C, TSH, LIPID #### [address] [address] CO2 [Moles/Vol] 28 mmol/L Normal 23-31 [facility] ([place] Comment on above: Performed By: #### G FR, FT4, CMP, A1C, TSH, LIPID #### [address] [address] Creatinine [Mass/Vol] 1.01 mg/dL Normal 0.70-1.30 [facility] ([place] Comment on above: Performed By: #### G FR, FT4, CMP, A1C, TSH, LIPID #### [address] [address] Electrolyte Balance 10.0 mEq/L Normal 4.0-15.0 [facility] ([place]) Comment on above: Performed By: #### G FR, FT4, CMP, A1C, TSH, LIPID #### [address] [address] Globulin 2.9 G/dL Normal [facility] ([place] Comment on above: Performed By: #### G FR, FT4, CMP, A1C, TSH, LIPID #### [address] [address] Glucose [Mass/Vol] 174 mg/dL High 83-110 [facility] ([place] Comment on above: Performed By: #### G FR, FT4, CMP, A1C, TSH, LIPID #### [place] [phone] [place], [place] [address] Potassium [Moles/Vol] 4.4 mmol/L Normal 3.5-5.1 [facility] ([place] Comment on above: Performed By: #### G FR, FT4, CMP, A1C, TSH, LIPID #### [place] [phone] [place], [place] [address] Sodium [Moles/Vol] 138 mmol/L Normal 136-145 [facility] ([place] Comment on above: Performed By: #### G FR, FT4, CMP, A1C, TSH, LIPID #### [address] [address] Total Protein 6.9 G/dL Normal 6.4-8.2 [facility] ([place] Comment on above: Performed By: #### G FR, FT4, CMP, A1C, TSH, LIPID #### [address] [address] Urea nitrogen [Mass/Vol] 17 mg/dL Normal 7-18 [facility] ([place] Comment on above: Performed By: #### G FR, FT4, CMP, A1C, TSH, LIPID #### [address] [address] LABORATORYOrdered By: SYSTEM SYSTEM on 02-17-2024 Albumin [...] 02-17-2024 Cholesterol [Mass/Vol] 151 mg/dL Normal 0-200 [facility] ([place] Comment on above: Result Comment: Chol esterol Reference Interval: Less than 200 Desirable 200-239 Borderline high risk 240 and above High risk Performed By: #### G FR, FT4, CMP, A1C, TSH, LIPID #### [address] [address] Cholesterol in HDL [Mass/Vol] 41 mg/dL Normal 40-60 [facility] ([place] Comment on above: Performed By: #### G FR, FT4, CMP, A1C, TSH, LIPID #### [address] [address] Cholesterol in LDL [Mass/Vol] 66 mg/dL Normal 0-130 [facility] ([place] Comment on above: Performed By: #### G FR, FT4, CMP, A1C, TSH, LIPID #### [place] [id number] [place], [place] [address] Triglyceride [Mass/Vol] 220 mg/dL High 0-150 [facility] ([place] Comment on above: Result Comment: Trig lyceride Reference Interval: Less than 150 Normal 150-199 Borderline high risk 200-499 High risk 500 or higher Very high risk Performed By: #### G FR, FT4, CMP, A1C, TSH, LIPID #### [address] [address] TSHon 02-17-2024 TSH Qn 0.61 m[IU]/L Normal 0.36-3.74 [facility] ([place]) Comment on above: Performed By: #### G FR, FT4, CMP, A1C, TSH, LIPID #### [address] [address] .GFRon 11-18-2023 GFR 78 ml/min/1.73sqm Normal [facility] ([place] Comment on above: Result Comment: GFR Population [...] FR, FT4, CMP, A1C, TSH, LIPID #### [address] [address] GFR Non- 64 ml/min/1.73sqm Normal [facility] ([place] Comment on above: Result Comment: GFR Population [...] FR, FT4, CMP, A1C, TSH, LIPID #### [address] [address] A1Con 11-18-2023 HbA1c (Bld) [Mass fraction] 8.4 % High 4.3-6.4 [facility] ([place]) Comment on above: Performed By: #### G FR, FT4, CMP, A1C, TSH, LIPID #### [address] [address] CMPon 11-18-2023 Albumin Level 3.8 G/dL Normal 3.4-4.8 [facility] ([place] Comment on above: Performed By: #### G FR, FT4, CMP, A1C, TSH, LIPID #### [address] [address] Albumin/Globulin [Mass ratio] 1.2 {ratio} Normal 1.1-2.5 [facility] ([place] Comment on above: Performed By: #### G FR, FT4, CMP, A1C, TSH, LIPID #### [address] [address] ALP [Catalytic activity/Vol] 67 U/L Normal 40-135 [facility] ([place] Comment on above: Performed By: #### G FR, FT4, CMP, A1C, TSH, LIPID #### [address] [address] ALT [Catalytic activity/Vol] 44 U/L Normal 16-63 [facility] ([place] Comment on above: Performed By: #### G FR, FT4, CMP, A1C, TSH, LIPID #### [address] [address] AST [Catalytic activity/Vol] 19 U/L Normal 10-40 [facility] ([place] Comment on above: Performed By: #### G FR, FT4, CMP, A1C, TSH, LIPID #### [address] [address] Bili Total 0.8 mg/dL Normal 0.2-1.0 [facility] ([place] Comment on above: Result Comment: Use of this assay is not recommended for patients undergoing treatment with eltrombopag due to the potential for falsely elevated results. Performed By: #### G FR, FT4, CMP, A1C, TSH, LIPID #### [address] [address] BUN/Creatinine Ratio 12 ratio Normal 7-27 [facility] ([place] Comment on above: Performed By: #### G FR, FT4, CMP, A1C, TSH, LIPID #### [address] [address] Calcium [Mass/Vol] 9.2 mg/dL Normal 8.4-10.2 [facility] ([place] Comment on above: Performed By: #### G FR, FT4, CMP, A1C, TSH, LIPID #### [address] [address] Chloride [Moles/Vol] 100 mmol/L Normal 98-107 [facility] ([place] Comment on above: Performed By: #### G FR, FT4, CMP, A1C, TSH, LIPID #### [address] [address] CO2 [Moles/Vol] 29 mmol/L Normal 23-31 [facility] ([place] Comment on above: Performed By: #### G FR, FT4, CMP, A1C, TSH, LIPID #### [address] [address] Creatinine [Mass/Vol] 1.13 mg/dL Normal 0.70-1.30 [facility] ([place]) Comment on above: Performed By: #### G FR, FT4, CMP, A1C, TSH, LIPID #### [address] [address] Electrolyte Balance 9.0 mEq/L Normal 4.0-15.0 [facility] ([place]) Comment on above: Performed By: #### G FR, FT4, CMP, A1C, TSH, LIPID #### [address] [address] Globulin 3.3 G/dL Normal [facility] ([place] Comment on above: Performed By: #### G FR, FT4, CMP, A1C, TSH, LIPID #### [address] [address] Glucose [Mass/Vol] 274 mg/dL High 83-110 [facility] ([place] Comment on above: Performed By: #### G FR, FT4, CMP, A1C, TSH, LIPID #### [address] [address] Potassium [Moles/Vol] 4.4 mmol/L Normal 3.5-5.1 [facility] ([place] Comment on above: Performed By: #### G FR, FT4, CMP, A1C, TSH, LIPID #### [address] [id number] Sodium [Moles/Vol] 138 mmol/L Normal 136-145 [facility] ([place]) Comment on above: Performed By: #### G FR, FT4, CMP, A1C, TSH, LIPID #### [address] [id number] [place], [place] [address] Total Protein 7.1 G/dL Normal 6.4-8.2 [facility] ([place]) Comment on above: Performed By: #### G FR, FT4, CMP, A1C, TSH, LIPID #### [id number] [place], [place] [address] Urea nitrogen [Mass/Vol] 13 mg/dL Normal 7-18 [facility] ([place]) Comment on above: Performed By: #### G FR, FT4, CMP, A1C, TSH, LIPID #### [address] [id number] FT4on 11-18-2023 Free T4 [Mass/Vol] 1.44 ng/dL Normal 0.76-1.46 [facility] ([place]) Comment on above: Performed By: #### G FR, FT4, CMP, A1C, TSH, LIPID #### [address] [id number] LABORATORYOrdered By: SYSTEM SYSTEM on 11-18-2023 Albumin [...] 11-18-2023 Cholesterol [Mass/Vol] 170 mg/dL Normal 0-200 [facility] ([place]) Comment on above: Result Comment: Chol esterol Reference Interval: Less than 200 Desirable 200-239 Borderline high risk 240 and above High risk Performed By: #### G FR, FT4, CMP, A1C, TSH, LIPID #### [id number] [place], [place] [address] Cholesterol in HDL [Mass/Vol] 50 mg/dL Normal 40-60 [facility] ([place]) Comment on above: Performed By: #### G FR, FT4, CMP, A1C, TSH, LIPID #### [place] [id number] [place], [place] [address] Cholesterol in LDL [Mass/Vol] 82 mg/dL Normal 0-130 [facility] ([place]) Comment on above: Performed By: #### G FR, FT4, CMP, A1C, TSH, LIPID #### [address] [id number] [place], [place] [address] Triglyceride [Mass/Vol] 189 mg/dL High 0-150 [facility] ([place]) Comment on above: Result Comment: Trig lyceride Reference Interval: Less than 150 Normal 150-199 Borderline high risk 200-499 High risk 500 or higher Very high risk Performed By: #### G FR, FT4, CMP, A1C, TSH, LIPID #### [address] [id number] [place], [place] [address] TSHon 11-18-2023 TSH Qn 0.91 m[IU]/L Normal 0.36-3.74 [facility] ([place]) Comment on above: Performed By: #### G FR, FT4, CMP, A1C, TSH, LIPID #### [address] [address] No Panel InformationOrdered By: Baldo Parker on 10-16-2023 Prostate Specific Antigen Total 1.83 ng/mL 0.0-4.0 [facility] Comment on above: This test was perfor med using the TPSA assay method for [employer] chemistry system. Values obtained with differentassay methods cannot be used interchangably.When changing PSA assays in the course of monitoring apatient, additional sequential testing should be carriedout to confirm baseline values. .GFRon 08-10-2023 GFR 89 ml/min/1.73sqm Normal [facility] ([place]) Comment on above: Result Comment: GFR Population [...] FR, FT4, CMP, A1C, TSH, LIPID #### [address] [address] GFR Non- 73 ml/min/1.73sqm Normal [facility] ([place] Comment on above: Result Comment: GFR Population [...] FR, FT4, CMP, A1C, TSH, LIPID #### [address] [address] A1Con 08-10-2023 HbA1c (Bld) [Mass fraction] 7.8 % High 4.3-6.4 [facility] ([place] Comment on above: Performed By: #### T SH, FT4, LIPID, GFR, CMP, A1C #### [address] [address] CMPon 08-10-2023 Albumin Level 3.8 G/dL Normal 3.4-4.8 [facility] ([place]) Comment on above: Performed By: #### T SH, FT4, LIPID, GFR, CMP, A1C #### [address] [address] Albumin/Globulin [Mass ratio] 1.2 {ratio} Normal 1.1-2.5 [facility] ([place]) Comment on above: Performed By: #### T SH, FT4, LIPID, GFR, CMP, A1C #### [address] [address] ALP [Catalytic activity/Vol] 60 U/L Normal 40-135 [facility] ([place]) Comment on above: Performed By: #### T SH, FT4, LIPID, GFR, CMP, A1C #### [address] [address] ALT [Catalytic activity/Vol] 41 U/L Normal 16-63 [facility] ([place]) Comment on above: Performed By: #### T SH, FT4, LIPID, GFR, CMP, A1C #### [address] [address] AST [Catalytic activity/Vol] 25 U/L Normal 10-40 [facility] ([place]) Comment on above: Performed By: #### T SH, FT4, LIPID, GFR, CMP, A1C #### [address] [address] Bili Total 1.0 mg/dL Normal 0.2-1.0 [facility] ([place]) Comment on above: Result Comment: Use of this assay is not recommended for patients undergoing treatment with eltrombopag due to the potential for falsely elevated results. Performed By: #### T SH, FT4, LIPID, GFR, CMP, A1C #### [address] [address] BUN/Creatinine Ratio 15 ratio Normal 7-27 [facility] ([place]) Comment on above: Performed By: #### T SH, FT4, LIPID, GFR, CMP, A1C #### [address] [address] Calcium [Mass/Vol] 9.0 mg/dL Normal 8.4-10.2 [facility] ([place]) Comment on above: Performed By: #### T SH, FT4, LIPID, GFR, CMP, A1C #### [address] [address] Chloride [Moles/Vol] 100 mmol/L Normal 98-107 [facility] ([place] Comment on above: Performed By: #### T SH, FT4, LIPID, GFR, CMP, A1C #### [address] [address] CO2 [Moles/Vol] 30 mmol/L Normal 23-31 [facility] ([place] Comment on above: Performed By: #### T SH, FT4, LIPID, GFR, CMP, A1C #### [address] [address] Creatinine [Mass/Vol] 1.01 mg/dL Normal 0.70-1.30 [facility] ([place]) Comment on above: Performed By: #### T SH, FT4, LIPID, GFR, CMP, A1C #### [address] [address] Electrolyte Balance 5.0 mEq/L Normal 4.0-15.0 [facility] ([place]) Comment on above: Performed By: #### T SH, FT4, LIPID, GFR, CMP, A1C #### [address] [address] Globulin 3.3 G/dL Normal [facility] ([place]) Comment on above: Performed By: #### T SH, FT4, LIPID, GFR, CMP, A1C #### [address] [address] Glucose [Mass/Vol] 160 mg/dL High 83-110 [facility] ([place]) Comment on above: Performed By: #### T SH, FT4, LIPID, GFR, CMP, A1C #### [address] [address] Potassium [Moles/Vol] 4.4 mmol/L Normal 3.5-5.1 [facility] ([place]) Comment on above: Performed By: #### T SH, FT4, LIPID, GFR, CMP, A1C #### [address] [address] Sodium [Moles/Vol] 135 mmol/L Low 136-145 [facility] ([place]) Comment on above: Performed By: #### T SH, FT4, LIPID, GFR, CMP, A1C #### [address] [address] Total Protein 7.1 G/dL Normal 6.4-8.2 [facility] ([place]) Comment on above: Performed By: #### T SH, FT4, LIPID, GFR, CMP, A1C #### [address] [address] Urea nitrogen [Mass/Vol] 15 mg/dL Normal 7-18 [facility] ([place]) Comment on above: Performed By: #### T SH, FT4, LIPID, GFR, CMP, A1C #### [address] [address] FT4on 08-10-2023 Free T4 [Mass/Vol] 1.23 ng/dL Normal 0.76-1.46 [facility] ([place]) Comment on above: Performed By: #### T SH, FT4, LIPID, GFR, CMP, A1C #### [address] [address] LABORATORYOrdered By: SYSTEM SYSTEM on 08-10-2023 Albumin [...] 08-10-2023 Cholesterol [Mass/Vol] 126 mg/dL Normal 0-200 [facility] ([place]) Comment on above: Result Comment: Chol esterol Reference Interval: Less than 200 Desirable 200-239 Borderline high risk 240 and above High risk Performed By: #### G FR, FT4, CMP, A1C, TSH, LIPID #### [address] [address] Cholesterol in HDL [Mass/Vol] 47 mg/dL Normal 40-60 [facility] ([place] Comment on above: Performed By: #### G FR, FT4, CMP, A1C, TSH, LIPID #### [address] [address] Cholesterol in LDL [Mass/Vol] 44 mg/dL Normal 0-130 [facility] ([place]) Comment on above: Performed By: #### G FR, FT4, CMP, A1C, TSH, LIPID #### [address] [address] Triglyceride [Mass/Vol] 177 mg/dL High 0-150 [facility] ([place]) Comment on above: Result Comment: Trig lyceride Reference Interval: Less than 150 Normal 150-199 Borderline high risk 200-499 High risk 500 or higher Very high risk Performed By: #### G FR, FT4, CMP, A1C, TSH, LIPID #### [address] [address] TSHon 08-10-2023 TSH Qn 0.83 m[IU]/L Normal 0.36-3.74 [facility] ([place]) Comment on above: Performed By: #### T SH, FT4, LIPID, GFR, CMP, A1C #### [address] [address] LABORATORYOrdered By: SYSTEM SYSTEM on 05-20-2023 Albumin [...] Prostate Specific Antigen Screen 1.43 ng/mL 0.00-4.00 [facility] Work Phone: Comment on above: This test was perfor med using the TPSA assay method for the[facility] chemistry system. Values obtained with differentassay methods [...] Interpretation Code AO Chemistry S MSCon 2021 [facility] DATE OF SERVICE: REASON [...] and paranasal sinus tenderness. Chest: Clear to [facility] PATIENT NAME: B[facility]HEWS [facility] [address] [facility] MEDICAL REC #: [id number] [place] [address] [facility] auscultation. Heart: Regular rate [...] disease, he must follow up with his [facility] PATIENT NAME: [facility] [place] MEDICAL REC #: [id number] [place] [address] [facility]IC[facility] doctor for evaluation and care. Continue [id number] medicine as needed. Patient understands and agrees. His questions were answered to his satisfaction. Pepe Ervin MD [id number] [facility] File#: [id number] END OF DOCUMENT / CHANGE LOG FOLLOWS Last Edited By Elec. Signed By Pepe Ervin MD #PAWPR Pepe Ervin MD #PAWPR on 10/01/2021 15:15 ET on 10/01/2021 15:15 ET Revision Number - 2 Verified/Reviewed by 10/01/21 1515 JENSENPR [facility] PATIENT NAME: [facility]WS [facility] [place] MEDICAL REC #: [id number] [place] [address] [facility] Normal [facility] LABORATORYOrdered By: Denisse Krishnan on 08-15-2021 Cholesterol [...] Facility Start: 08-23-2025 ambulatory Naz Horton Facility: [facility] Start: 03-03-2025 End: 03-03-[address] Naz Horton MD Work Phone: [facility] Work Phone: Start: 03-03-2025 End: 03-03-[address] Naz Horton MD -Laboratory Work Phone: Start: 03-03-2025 End: 03-03-2025 ambulatory Naz Horton Facility:[facility] Start: 10-17-2024 End: 10-17-2024 ambulatory Guy Wilkes Facility:[facility] Start: 08-17-2024 End: 08-21-2024 ambulatory GUY WILKES MD Facility:[facility] Start: 08-17-2024 End: 08-21-2024 Outreach Lab GUY WILKES MD [facility] Start: 05-18-2024 End: 05-22-2024 ambulatory GUY WILKES MD Facility:B Start: 05-18-2024 End: 05-22-2024 Outreach Lab GUY WILKES MD [facility] Start: 02-26-2024 End: 03-01-2024 ambulatory GUY WILKES MD Facility:[facility] Start: 02-17-2024 End: 02-21-2024 ambulatory GUY WILKES MD Facility:[facility] Start: 02-17-2024 End: 02-21-2024 Outreach Lab GUY WILKES MD [facility] Start: 11-18-2023 End: 11-22-2023 ambulatory GUY WILKES MD Facility:[facility] Start: 11-18-2023 End: 11-22-2023 Outreach Lab GUY WILKES MD [facility] Start: 10-16-2023 End: 10-16-2023 ambulatory [facility] Work Phone: Start: 10-16-2023 End: 10-16-2023 Patient encounter procedure [facility] Work Phone: Start: 08-10-2023 End: 08-14-2023 ambulatory GUY WILKES MD Facility:[facility] Start: 08-10-2023 End: 08-14-2023 Outreach Lab GUY WILKES MD [facility] Start: 05-20-2023 End: 05-24-2023 Outreach Lab GUY WILKES MD [facility] Start: 04-16-2023 End: 04-16-[address] BALDO PARKER MD [facility] Start: 04-08-2023 End: 04-08-2023 Well adult monitoring check done GUY WILKES MD [facility] Start: 04-08-2023 End: 04-08-2023 Patient encounter procedure GUY WILKES MD [facility] Start: 04-08-2023 End: 04-08-[address] BALDO PARKER MD [facility] Start: 11-19-2022 End: 11-23-2022 Outreach Lab GUY WILKES MD [facility] Start: 10-22-2022 End: 10-22-2022 ambulatory [facility] Work Phone: Start: 10-22-2022 End: 10-22-2022 Patient encounter procedure [facility] Start: 08-20-2022 End: 08-24-2022 Outreach Lab GUY WILKES MD [facility] Start: 05-21-2022 End: 05-25-2022 Outreach Lab GUY WILKES MD [facility] Start: 02-17-2022 End: 02-17-2022 Patient encounter procedure GUY WILKES MD [facility] Start: 11-14-2021 End: 11-14-2021 Patient encounter procedure GUY WILKES MD [facility] Start: 09-24-2021 Patient encounter procedure Pepe Ervin MD Work Phone: [facility] Start: 09-24-2021 Progress Note Pepe Ervin MD Work Phone: [facility] Start: 08-15-2021 End: 08-19-2021 Outreach Lab GUY WILKES MD [facility] Procedures Date Procedure Procedure Detail Performing Clinician Start: 03-03-2025 Urine microalbumin/creatinine ratio measurement Dr. Naz Horton MD Work Phone: Appendectomy GUY Alvarez Arthroscopic knee operation GUY WILKES MD Immunizations Immunization Date Immunization Notes Care Provider Fa [facility] 08-28-2023 influenza, high dose seasonal, preservative-free; Translations: [Fluad Quadrivalent PF ] GUY WILKES MD [facility] 08-12-2022 influenza, high dose seasonal, preservative-free GUY WILKES MD [facility] Comment on above: Early/Late Reason: E jose ramon/Late Reason: Other: 11-06-2021 SARS-CoV-2 mRNA (tozinameran) vaccine GUY WILKES MD [facility] Comment on above: Result Comment: pfiz er, booster 08-27-2021 influenza, high dose seasonal, preservative-free; Translations: [Fluad Quadrivalent PF ] GUY WILKES MD [facility] 01-21-2021 SARS-CoV-2 mRNA (tozinameran) vaccine GUY WILKES MD [facility] Comment on above: Result Comment: 2021: TPV65 12-31-2020 SARS-CoV-2 mRNA (tozinameran) vaccine GUY WILKES MD [facility] Comment on above: Result Comment: 2021: TPV65 08-02-2020 influenza, injectabl e, quadrivalent, preservative free; Translations: [Fluarix PF Quadrivalent ] GUY WILKES MD [facility] 08-29-2019 influenza, injectabl e, quadrivalent, preservative free; Translations: [Fluarix PF Quadrivalent ] GUY WILKES MD [facility] 08-24-2018 influenza virus vacc ine, unspecified formulation GUY WILKES MD [facility] 08-24-2018 pneumococcal conjuga te vaccine, 13 valent GUY WILKES MD [facility] 08-03-2017 influenza virus vacc ine, unspecified formulation GUY WILKES MD [facility] 01-20-2017 pneumococcal polysaccharide vaccine, 23 valent GUY WILKES MD [facility] 07-29-2016 influenza virus vacc ine, unspecified formulation GUY WILKES MD [facility] 08-10-2015 influenza virus vacc ine, unspecified formulation GUY WILKES MD [facility] 09-07-2014 influenza virus vacc ine, unspecified formulation GUY WILKES MD [facility] 08-12-2013 influenza virus vacc ine, unspecified formulation GUY WILKES MD [facility] 04-11-2013 tetanus toxoid, redu manuel diphtheria toxoid, and acellular pertussis vaccine, adsorbed GUY WILKES MD [facility] 08-09-2012 influenza virus vacc ine, unspecified formulation GUY WILKES MD [facility] 12-05-2011 influenza virus vacc ine, unspecified formulation GUY WILKES MD [facility] Payers Date Payer Category Payer Self-pay [id number] 2023 Medicare [id number] 1950 Unknown [id number] 2.16.8 [id number] 1950 Unknown [id number] 2.16.8 [id number] 1950 Unknown [id number] 2.16.8 [id number] 1950 Unknown [id number] 2.16.8 [id number] 1950 Unknown [id number] 2.16.8 [id number] 1950 Unknown [id number] 2.16.8 [id number] Unknown [facility] [id number] Unknown [id number] 2.16.8 [id number] Unknown [id number] 2.16.8 [id number] Unknown [id number] 2.16.8 [id number] Social History Date Type Detail Facility Start: 05-24-2019 End: 02-13-2025 Ex-smoker (finding) [facility] Start: 1950 Sex Assigned At Male A [facility] Tobacco smoking status IDIS Tobacco smoking consumption unknown [facility] Start: 1950 Sex Assigned At Not on file C [facility] Medical Equipment Procedure Code Equipment Code Equipment [...] his doctor for evaluation and care. Continue [id number] medicine as needed. Patient understands and agrees. His questions were answered to his satisfaction. Pepe Ervin MD [id number] [facility] File#: [id number] END OF DOCUMENT / CHANGE LOG FOLLOWS Last Edited By Elec. Signed By Pepe Ervin MD #PAWPR Pepe Ervin MD #PAWPR on 10/01/2021 15:15 ET on 10/01/2021 15:15 ET Revision Number - 2 ^^^ Verified/Reviewed by 10/01/21 1515 [facility] PATIENT NAME: BEN MATHEWS [address] [facility] [address] [place] MEDICAL REC #: [id number] [place] [address] [facility] documented in this encounter [facility] Evaluation + Plan note Future Appointments Appointment Date:08/27/2021 10:45:00 AM Scheduled Provider:GUY WILKES MD Location:[facility] Appointment Type:PC OV Future Scheduled TestsFree T4 05/27/21 [facility] Evaluation + Plan note Future Appointments Appointment Date:11/26/2021 10:30:00 AM Scheduled Provider:GUY WILKES MD Location:[facility] Appointment Type:PC OV Future Scheduled TestsFree T4 08/27/21 [facility] Evaluation + Plan note Future Appointments Appointment Date:02/25/2022 10:30:00 AM Scheduled Provider:GUY WILKES MD Location:[facility] Appointment Type:PC OV Future Scheduled TestsFree T4 08/27/21 [facility] Evaluation + Plan note Future Appointments Appointment Date:05/29/2022 10:00:00 AM Scheduled Provider:GUY WILKES MD Location:[facility] Appointment Type:PC OV Future Scheduled TestsFree T4 08/27/21 [facility] Evaluation + Plan note Future Appointments Appointment Date:08/28/2022 09:30:00 AM Scheduled Provider:GUY WILKES MD Location:[facility] Appointment Type:PC OV Future Scheduled TestsFree T4 08/27/21Free T4 05/29/22 [facility] Evaluation + Plan note Future Appointments Appointment Date:11/28/2022 09:00:00 AM Scheduled Provider:GUY WILKES MD Location:[facility] Appointment Type:PC OV Future Scheduled TestsFree T4 08/28/22 [facility] Evaluation + Plan note Future Appointments Appointment Date:05/20/2023 09:00:00 AM Scheduled Provider: Location:[facility] Appointment Type:PC Nurse Lab Appointment Date:05/29/2023 09:00:00 AM Scheduled Provider:GUY WILKES MD Location:[facility] Appointment Type:PC OV Appointment Date:04/08/2024 11:00:00 AM Scheduled Provider: Location:[facility] Appointment Type:CV OV Future Scheduled TestsThyroid Stimulating Hormone 05/29/23Free T4 08/28/22Free T4 11/28/22A1C Hemoglobin 05/29/23Lipid Profile 05/29/23Complete Metabolic Panel 05/29/23 [facility] Evaluation + Plan note Future Appointments Appointment Date:05/29/2023 09:00:00 AM Scheduled Provider:GUY WILKES MD Location:[facility] Appointment Type:PC OV Appointment Date:04/08/2024 11:00:00 AM Scheduled Provider: Location:[facility] Appointment Type:CV OV Future Scheduled TestsFree T4 08/28/22 [facility] Evaluation + Plan note Future Appointments Appointment Date:08/28/2023 09:00:00 AM Scheduled Provider:GUY WILKES MD Location:[facility] Appointment Type:PC OV Appointment Date:04/08/2024 11:00:00 AM Scheduled Provider: Location:[facility] Appointment Type:CV OV [facility] Evaluation + Plan note Future Appointments Appointment Date:11/27/2023 09:45:00 AM Scheduled Provider:GUY WILKES MD Location:[facility] Appointment Type:PC OV Appointment Date:04/08/2024 11:00:00 AM Scheduled Provider: Location:[facility] Appointment Type:CV OV [facility] Evaluation + Plan note Future Appointments Appointment Date:02/26/2024 09:45:00 AM Scheduled Provider:GUY WILKES MD Location:[facility] Appointment Type:PC OV Appointment Date:04/18/2024 02:00:00 PM Scheduled Provider: Location:[facility] Appointment Type:CV OV [facility] Evaluation + Plan note Future Appointments Appointment Date:05/27/2024 09:00:00 AM Scheduled Provider:GUY WILKES MD Location:[facility] Appointment Type:PC OV Lab Check Appointment Date:04/21/2025 11:00:00 AM Scheduled Provider: Location:[facility] Appointment Type:CV OV [facility] Evaluation + Plan note Future Appointments Appointment Date:08/26/2024 09:00:00 AM Scheduled Provider:GUY WILKES MD Location:[facility] Appointment Type:PC OV Appointment Date:04/21/2025 11:00:00 AM Scheduled Provider:ALMAS ALMAGUER Location:[facility] Appointment Type:CV OV [facility] Evaluation note No assessment information availa ble [facility] Work Phone: Hospital course Narrative No data available for this section [facility] Hospital Discharge instructions No data available for this section [facility] Progress note No data available for this section [facility] Reason for referral (narrative) No reason for referral information available [facility] Work Phone: Summary Purpose Family History No [...] section and content) DATE CREATED AUTHOR 10/03/2021 [facility] DATE CREATED AUTHOR AUTHOR'S ORGANIZ ATION 05/24/2024 [facility] ([place]) DATE CREATED AUTHOR AUTHOR'S ORGANIZ ATION 08/23/2024 [facility] DATE CREATED AUTHOR AUTHOR'S ORGANIZ ATION 08/25/2025 [facility] Care Team (unrecognized sect ion [...] or prosecute any alcohol or drug abuse patient.[facility] Care Team (unrecognized sect ion and content) Care Team Personnel Name: Nubia Vazquez Clerk Raina PT Position: P3 Scheduling - Cafe Worker Advanced Member Role: Other Name: GUY WILKES MD Position: P4 Physician - Primary Care Med Service: Active Provider Member Role: Primary Care Physician Address: Address: [address] [place] [address]- Care Team Related Persons Name: DANITA MATHEWS Address: [address] [place], [place] [id number] Care Team Personnel Name: Nubia Vazquez Clerk Raina PT Position: P3 Scheduling - Cafe Worker Advanced Member Role: Other Name: GUY WILKES MD Position: P4 Physician - Primary Care Med Service: Active Provider Member Role: Primary Care Physician Address: Address: [address] [place] [address]- Care Team Related Persons Name: DANITA MATHEWS Address: [address] [place], [place] [id number] Care Team Personnel Name: Nubia Vazquezrk Raina PT Position: P3 Scheduling - Cafe Worker Advanced Member Role: Other Name: GUY WILKES MD Position: P4 Physician - Primary Care Member Role: Primary Care Physician Address: Address: [address] [place] [address] [place] [address]- Care Team Related Persons Name: DANITA MATHEWS Address: Home [address] [place] [address] [address] [place], [place] [id number] Goals (unrecognized section and content) Goals may [...] BE BASED ON THE PRIMARY CLINICAL RECORDS. [facility] [facility]. provides no warranty or guarantee of the accuracy or completeness of information in this document.
--- NOTE | 2025-10-17 19:08 | CA.SCORE ---
Calcium Scoring Date of Study:: 10/13/25 Indications Indications: Hyperlipidemia Coronary Calcium Scoring: High-resolution Computed Tomographic imaging of the chest was performed on [10/13/2025], with particular attention paid to the coronary arteries. Images from the examination were analyzed for the presence and extent of coronary artery calcification , using coronary calcium quantification software. The patient tolerated the procedure well and there were no complications. The results of the coronary calcification analysis are provided below. Findings Coronary Artery Left Main (LM): 0 Left Anterior Descending (LAD): 660 Left Circumflex (LCX): 1.99 Right Coronary Artery (RCA): 640 Total Agatston Score: 1,301.99 Percentile Rankin-90 Calcium Scoring Interpretation: Different methods to categorize the overall amount of coronary plaque. Overall amount CAC SIS Visual of coronary plaque P1 Mild -100 <2 1-2 vessels with mild amount of plaque P2 Moderate 101-300 3-4 1-2 vessels with moderate amount, 3 vessels with mild amount of plaque P3 Severe 301-999 5-7 3 vessels with moderate amount, 1 vessel with severe amount of plaque P4 Extensive >1000 >8 2-3 vessels with severe amount of plaque Calcium Score: Extensive: 2-3 vessels w/severe amount of plaque Conclusion: Extensive two-vessel plaque disease present.
== END | disposition home or self-care (01) ==
PROVIDERS: PCP Family Medicine; Referring Provider Family Medicine; Visit Provider Family Medicine
DX: I25.10 Atherosclerotic heart disease of native coronary artery without angina pectoris (principal); E11.69 Type 2 diabetes mellitus with other specified complication; E78.5 Hyperlipidemia, unspecified
CPT/HCPCS: 75571; 76380

== ENCOUNTER → 2025-10-31 | Outpatient (CLI) | payer MEDICARE, SELFPAY ==
--- NOTE | 2025-10-31 13:27 | CT_ITS ---
PROCEDURE: CHEST WITHOUT CONTRAST 10/31/2025 REASON FOR EXAM: Solitary pulmonary nodule TECHNIQUE: Chest CT without contrast. Coronal and Sagittal reconstruction series were provided. One or more dose reduction techniques were used (e.g., Automated exposure control, adjustment of the mA and/or kV according to patient size, use of iterative reconstruction technique RADIATION DOSE SUMMARY: DLP: 658.36 mGycm COMPARISON: None available. FINDINGS: Pulmonary parenchyma: Clear lungs. There are multiple pulmonary nodules. For example, (series 4): Right upper lobe 3 mm solid pulmonary nodule (image 52). Right lower lobe 5 mm solid pulmonary nodule (image 80). Right middle lobe 4.5 mm solid pulmonary nodule (image 88). Right lower lobe 6 mm solid pulmonary nodule (image 90). Left lower lobe 3 mm solid pulmonary nodule (image 73). Left lower lobe 4 mm solid pulmonary nodule (image 73). Left lower lobe 4 mm solid pulmonary nodule (image 76). Multiple focal ground-glass opacities in the bilateral lungs. For example in the right lung apex measuring up to 19 mm. Airways: The central airways are patent. Pleural space: No pneumothorax or pleural effusion. Heart and pericardium: The heart is normal in size. Trace pericardial effusion. There are coronary artery calcifications. Mediastinum and prabhu: Unremarkable. Thoracic vessels: The thoracic aorta and main pulmonary artery are normal in caliber. Scattered atherosclerotic calcification of the thoracic aorta. Osseous structures: No aggressive osseous lesion. 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 Degenerative changes in the thoracic spine. Upper visualized abdomen: Incompletely characterized left renal cyst. Trace nonspecific bilateral perinephric edema. CT/Chest without Contrast IMPRESSION: 1. Multiple solid pulmonary nodules measuring up to 6 mm. 2. Multiple focal ground-glass opacities in the bilateral lung measuring up to 19 mm. This is a nonspecific finding but may be of infectious or inflammatory etiology. 3. Recommend follow-up CT in 3-6 months for stabilization. Reading Location: [id number]
== END | disposition home or self-care (01) ==
LOC: CT 13:21
PROVIDERS: PCP Family Medicine; Referring Provider Family Medicine; Visit Provider Family Medicine
DX: R91.1 Solitary pulmonary nodule (principal)
CPT/HCPCS: 71250